=== PATIENT | female | born 1970 | race Caucasian/White ===

== ENCOUNTER 2023-01-31 07:08 | Outpatient (OUT) | payer OTHER, SELFPAY ==
[2023-01-31 07:32] LABS: Basophils Percent Auto 0.7 % (0.2-2.0); Eosinophils Absolute Auto 0.2 10^3/uL (0.0-0.7); Eosinophils Percent Auto 3.3 % (0.9-7.0); Hematocrit 35.2 % (36.0-48.0); Hemoglobin 11.4 g/dL (12.0-16.0); Immature Granulocytes Abs Auto 0.01 10^3/uL (0.00-0.03); Immature Granulocytes Pct Auto 0.2 % (0.0-0.5); Lymphocytes Absolute Auto 1.9 10^3/uL (1.2-3.8); Lymphocytes Percent Auto 35.4 % (20.5-60.0); Mean Corpuscular HGB Conc 32.4 g/dL (29.9-35.2); Mean Corpuscular Hemoglobin 27.7 pg (26.7-34.0); Mean Corpuscular Volume 85.4 fL (81.0-99.0); Mean Platelet Volume 8.6 fL (9.5-13.5); Monocytes Absolute Auto 0.3 10^3/uL (0.3-0.8); Monocytes Percent Auto 6.3 % (1.7-12.0); Neutrophils Absolute Auto 2.9 10^3/uL (1.4-6.5); Neutrophils Percent Auto 54.1 % (43.0-75.0); Platelet Count 279 10^3/uL (150-450); Red Blood Count 4.12 10^6/uL (4.20-5.40); Red Cell Distribution Width 14.5 % (11.0-15.0); White Blood Count 5.4 10^3/uL (4.0-11.0)
[2023-01-31 09:20] LABS: Alanine Aminotransferase 21 U/L (14-59); Albumin Globulin Ratio 1.1; Albumin Level 3.7 g/dL (3.4-5.0); Alkaline Phosphatase 70 U/L (46-116); Aspartate Amino Transferase 18 U/L (15-37); BUN Creatinine Ratio 19.7; Bilirubin Total 0.2 mg/dL (0.2-1.0); Carbon Dioxide 31.2 mmol/L (21.0-32.0); Chloride 105 mmol/L (98-107); Estimated GFR (African America >60 (>=60); Estimated GFR (Non-African Ame >60 (>=60); Globulin 3.5 g/dL; Glucose 98 mg/dL (74-106); Potassium 4.2 mmol/L (3.5-5.1); Sodium 142 mmol/L (136-145); Total Protein 7.2 g/dL (6.4-8.2)
[2023-01-31 09:21] LABS: Chol HDL Ratio 2.6; Cholesterol 184 mg/dL (<=200); HDL Cholesterol 70 mg/dL (40-60); Triglycerides 44 mg/dL (<=150); VLDL CHOLESTEROL 8.8 mg/dL
[2023-02-01 14:09] LABS: Free Kappa Lt Chains,S 10.3 mg/L (3.3-19.4); Free Lambda Lt Chains,S 8.1 mg/L (5.7-26.3); Kappa/Lambda Ratio,S 1.27 (0.26-1.65)
[2023-02-01 15:11] LABS: Albumin 3.8 g/dL (2.9-4.4); Alpha-1-Globulin 0.2 g/dL (0.0-0.4); Alpha-2-Globulin 0.7 g/dL (0.4-1.0); Gamma Globulin 0.7 g/dL (0.4-1.8); Protein, Total 6.4 g/dL (6.0-8.5)
[2023-02-01 16:10] LABS: Immunoglobulin A, Qn, Serum 165 mg/dL (87-352); Immunoglobulin G, Qn, Serum 781 mg/dL (586-1602); Immunoglobulin M, Qn, Serum 58 mg/dL (26-217)
== END 2023-01-31 07:09 | disposition home or self-care (01) ==
LOC: LAB 07:08
PROVIDERS: PCP Internal Medicine; Visit Provider Internal Medicine
DX: Z00.00 Encounter for general adult medical examination without abnormal findings (principal); R53.83 Other fatigue; G62.9 Polyneuropathy, unspecified; D64.9 Anemia, unspecified
CPT/HCPCS: 36415; 80053; 80061; 82607; 82784; 83521; 84155; 84165; 84443; 85025; 86334

== ENCOUNTER 2023-07-07 08:13 | Outpatient (OUT) | payer OTHER, SELFPAY ==
[2023-07-07 12:32] LABS: Thyroid Stimulating Hormone 2.924 uIU/mL (0.358-3.740)
== END 2023-07-07 08:14 | disposition home or self-care (01) ==
LOC: LAB 08:14
PROVIDERS: PCP Internal Medicine; Visit Provider Internal Medicine
DX: E06.3 Autoimmune thyroiditis (principal)
CPT/HCPCS: 36415; 84443

== ENCOUNTER 2023-10-18 14:26 | Outpatient (OUT) | payer OTHER, SELFPAY ==
--- NOTE | 2023-10-18 14:30 | XR_ITS ---
The [address] [address] Patient Name: CLAIRE ROCHA MRN: [id number] date: 1970 Sex: F Assigned Patient Location: [facility] Current Patient Location: Accession/Order Number: [id number] Exam Date: 10/18/2023 14:40 Report Date: 10/19/2023 07:04 At the request of: CHUY POWELL Procedure: XR mandible <4V EXAM: XR mandible <4V HISTORY: jaw pain R68.84, toothache K08.89, recent dental procedure. COMPARISON: None.. FINDINGS: BONES: No fracture, acute abnormality, or significant arthropathy. SOFT TISSUES: No fracture, acute abnormality, or significant arthropathy. OTHER: Negative. XR/XR mandible <4V IMPRESSION: No acute radiographic abnormality Electronically authenticated by: NORY DAVILA Date: 10/19/2023 07:04
--- OUTSIDE RECORDS SUMMARY | 2023-10-18 14:53 | XMS_ITS | CCD ---
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 increased with activity as her legs get tired and weak. She never had BADILLO when she was younger and her BADILLO started ~ three years ago affecting the R more than the left side along with light/sound sensitivity and nausea. She has also experienced episodes of lightheadedness in the past. Her pain level is ~ 3-4/10 in AM sheyla 6-7/10 at night. She also reports a 13 year h/o insomnia and has previously noted anxiety and had remote panic. Patient denies the following pertinent symptoms: difficulty with bowel or bladder control, unintentional weight loss, fevers, chills, or night sweats, and ever having cancer. Past Treatments have included: trials of medications. Enrollment in Physical Therapy which did not help. Patient is not currently performing a home exercise program. She reports for having had a negative blood work and lumbar MRI twice in 2018 and 2021 ALLERGIES: No Known Allergies Current Outpatient Medications Medication Sig tizanidine (ZANAFLEX) 4 mg tablet Take 4 mg by mouth as needed. eletriptan (RELPAX) 40 mg tablet Take 40 mg by mouth once daily. SYNTHROID 100 mcg tablet Take 1 tablet by mouth once daily. Metronidazole (METROGEL) 0.75 % (37.5mg/5 gram) Vaginal Gel Use 1 Applicatorful vaginally daily at bedtime. polyethylene glycol 3350 (MIRALAX) 17 gram/dose powder Take 17 g by mouth once daily. Dissolve dose in 4 - 8 ounces of liquid and take as directed. 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 No shortness of breath, chest pain, vomiting or diarrhea. Denies ease of bleeding or bruising. Examination: BP 128/77 Pulse 90 Ht 5' 3 (1.60m) Wt 163 lb (73.9kg) SpO2 100% BMI 28.88 kg/(m2). Pleasant individual in NAD, difficulty relaxing, reactive affect, coherent cognition, preserved orientation to all spheres and normal higher cortical functions including language, praxis and stereognosis. There was no detectable neglect or executive dysfunctions. Cranial nerve assessment revealed full visual leal, symmetric 3 mm pupillary size, shape and reaction with preserved adaptation to light and accommodation to moving objects. There was no spontaneous or gaze evoked nystagmus. Saccadic, pursuit and vertical/horizontal extraocular movements were intact. Visual acuity was preserved for letter recognition. There was no ptosis or asymmetry of palpebral fissure. Contraction of B/L orbicularis occuli as well as B/L facial, glossal, palatal and sternocleidomastoid muscles were performed symmetrically. Facial sensation and hearing are preserved. She has full four extermity power, coordination, position/LT/point localization testing. Her DTR are 2+ and symmetric. She denies nay myofascial palpation pain, however notes heaviness in her arms during brachial plexus traction test that also results in L hand appearing pale with negative Adson test. Assessment of acral sympathetic tone indicated cold hands and feet with preserved distal pulses She also has normal joint ROM and no signs of inflammatory joint disease. Impression: Possible central sen (more content not included)... Normal [facility] T3, TOTAL (TRIIODOTHYRONINE) on 09-29-2022 T3, TOTAL 108 ng/dL Normal 71-180 [facility] Comment on above: Performed By: #### T 3TOTAL #### [facility] [address] [place] [address] Gigi Campos FREE T4on 09-28-2022 Free T4 [Mass/Vol] 1.06 ng/dL Normal 0.76-1.46 [facility] Comment on above: Performed By: #### F T4 #### [facility] [address] [place], [place] [address] Dr. Gigi Campos TSHon 09-28-2022 TSH 2.591 uIU/mL Normal 0.358-3.740 [facility] Comment on above: Performed By: #### T #### [facility] [address] [place] [address] [address] Gigi Campos Quick Strepon 09-10-2022 S. pyogenes Org specific cx Ql (Throat) Negative [facility] [employer] Other Quick Strep [facility] [employer] Other XR hip BI w [id number] 06-05-20 XR hip BI w PEL1V [facility] [place] [address] XRay Report Signed Patient: Claire Rocha MR#: [id number] : 1970 Acct:[id number] Age/Sex: 51 / F ADM Date: 06/05/22 [place] [facility] [place]: Type: [facility] Attending Dr: Louis Palafox DO Copies to: Louis Palafox DO Ordering Provider: Louis Palafox DO Date of Service: 06/05/22 XR/XR hip BI w PEL1V: Pain in right hip;Pain in left hip PELVIS WITH BILATERAL HIPS -3 images CLINICAL HISTORY: Bilateral hip and groin pain, greater on the right. No injury. COMPARISON: 07/27/2020 left hip AP view of the pelvis frog-lateral views of both hips were obtained. No fracture, dislocation or bony destruction is seen. The hip joint spaces are symmetric. There is no significant arthritic change. The soft tissues are unremarkable. XR/XR hip BI w PEL1V IMPRESSION: NO ACUTE PLAIN FILM FINDINGS. Impression dictated by: Marce Echeverria M.D.06/05/2022 5:47 PM Dictation Location: [place] [address] Transcribed By: [facility] 06/05/221746 Dictated By: Marce Echeverria MD 06/05/221744 Signed By: 06/05/221746 Normal [facility] XR hip BI w PEL1V [facility] [place] [facility] [employer] Other XR hip BI w PEL1V [facility] Main [employer] Other XR hip BI w PEL1V [address] [employer] Other XR hip BI w PEL1V [place] [address] [employer] Other XR hip BI w PEL1V XRay Report [employer] Other XR hip BI w PEL1V Signed [employer] Other XR hip BI w PEL1V Patient: David Rocha ra MR#: [id number] [place] [employer] Other XR hip BI w PEL1V [address]82 [employer] Other XR hip BI w PEL1V : 1970 Acct:[id number] [employer] Other XR hip BI w PEL1V Age/Sex: 51 / F ADM Date: 06/05/22 [employer] Other XR hip BI w PEL1V [place] [facility] [place]: Type : [facility] [employer] Other XR hip BI w PEL1V Attending Dr: Louis Palafox DO [employer] Other XR hip BI w PEL1V Copies to: Louis Palafox DO [employer] Other XR hip BI w PEL1V Ordering Provider: Louis Palafox DO [employer] Other XR hip BI w PEL1V Date of Service: 06/05/22 [facility] Other XR hip BI w PEL1V XR/XR hip BI w PEL1V: Pain in right hip;Pain in left hip [facility] Other XR hip BI w PEL1V PELVIS WITH BILATERA L HIPS -3 images [employer] Other XR hip BI w PEL1V CLINICAL HISTORY: Bilateral hip and groin pain, greater on the right. No injury. [employer] Other XR hip BI w PEL1V COMPARISON: 07/27/2020 left hip [facility] Other XR hip BI w PEL1V AP view of the pelvi s frog-lateral views of both hips were obtained. No fracture, dislocation or [employer] Other XR hip BI w PEL1V bony destruction is seen. The hip joint spaces are symmetric. There is no significant arthritic [employer] Other XR hip BI w PEL1V change. The soft tissues are unremarkable. [employer] Other XR hip BI w PEL1V XR/XR hip BI w PEL1V [employer] Other XR hip BI w PEL1V IMPRESSION: [employer] Other XR hip BI w PEL1V NO ACUTE PLAIN FILM FINDINGS. [employer] Other XR hip BI w PEL1V Impression dictated by: Marce Echeverria M.D.06/05/2022 5:47 PM [employer] Other XR hip BI w PEL1V Dictation Location: [place] [address] [employer] Other XR hip BI w PEL1V Transcribed By: 06/05/22 1747 [facility] Other XR hip BI w PEL1V Dictated By: Marce Echeverria MD 06/05/22 1745 [facility] Other XR hip BI w PEL1V Signed By: [employer] Other XR hip BI w PEL1V 06/05/22 1747 [employer] Other TSHon 04-29-2022 TSH 0.320 uIU/mL Critically low 0.358-3.740 [facility] Comment on above: Performed By: #### T SH #### [facility] [address] [place] [address] [address] Gigi Campos SCREENING MAMMOGRAM W/MIYA, BILATERAL*on 01-23-2022 SCREENING MAMMOGRAM W/MIYA, BILATERAL* EXAMINATION: Screening Mammogram CLINICAL HISTORY: Family history of breast cancer. COMPARISON: Dating back to 12/29/2016 TECHNIQUE: 2D and 3D Tomosynthesis of the right and left breasts was performed. FINDINGS: There are scattered fibroglandular densities within each breast. There are no suspicious masses, areas of suspicious microcalcifications or areas of architectural distortion identified. No evidence of skin thickening. IMPRESSION: BIRADS 1 : NEGATIVE, NORMAL INTERVAL FOLLOW UP. MAMMOGRAPHY IS VERY IMPORTANT TO YOUR HEALTH. THE CURRENT [place] [employer]GE OF RADIOLOG[employer] AND NATIONAL COMPREHENSIVE CANCER NETWORK GUIDELINES RECOMMEND ANNUAL MAMMOGRAPHY BEGINNING AT AGE 40. THIS FACILITY UTILIZES A REMINDER SYSTEM TO ENSURE ALL PATIENTS RECEIVE A REMINDER NOTIFICATION AT THE APPROPRIATE TIME BASED ON THE RECOMMENDATIONS OF THIS EXAM. BOARD CERTIFIED RADIOLOGIST. ACCREDITED BY THE [facility] AND FDA. Report reported and signed by Flakita Gan on 01/23/2022 1309 Normal [facility] [employer] XR KUB 1 VIEWon 01-05-2022 XR KUB 1 VIEW EXAMINATION: XR KUB 1 VIEW HISTORY: Abdominal pain COMPARISON: No relevant comparison available. FINDINGS: KIDNEY/URETER - RIGHT: No visible renal or ureteral calcifications. KIDNEY/URETER - LEFT: No visible renal or ureteral calcifications. PELVIS: No visible ureteral calcifications. Any visible calcifications favor phleboliths. BOWEL: No abnormal dilation or deviation. BONES: No acute abnormality. OTHER: Negative. No abnormal gaseous collections. IMPRESSION: No acute disease. Electronically authenticated by: NORY DAVILA Date: 2022-01-05 16:27 Normal [facility] CBC AUTO DIFFon 11-22-2021 BASO # 0.1 103/ul Normal 0.0-0.1 [facility] Comment on above: Performed By: #### C BC #### [facility] [address] [place] [address] [address] Gigi Campos Basophils/100 WBC (Bld) 1.0 % Normal 0.2-2.0 [facility] Comment on above: Performed By: #### C BC #### [facility] [address] [place] [address] [address] Gigi Campos EO # 0.2 103/ul Normal 0.0-0.7 [facility] Comment on above: Performed By: #### C BC #### [facility] [address] [place] [address] Dr. Gigi Campos Eosinophils/100 WBC (Bld) 3.8 % Normal 0.9-7.0 [facility] Comment on above: Performed By: #### C BC #### [facility] [address] [place] [address] Dr. Gigi Campos Erythrocyte distribution width (RBC) [Ratio] 12.1 % Normal 11.0-15.0 [facility] Comment on above: Performed By: #### C BC #### [facility] [address] [place] [address] Dr. Gigi Campos Hematocrit (Bld) [Volume fraction] 43.0 % Normal 36.0-48.0 [facility] Comment on above: Performed By: #### C BC #### [facility] [address] [place] [address] Dr. Gigi Campos Hemoglobin (Bld) [Mass/Vol] 14.2 g/dL Normal 12.0-16.0 [facility] Comment on above: Performed By: #### C BC #### [facility] [address] [place] [address] Dr. Gigi Campos IG # 0.00 10e3/ul Normal 0.00-0.03 [facility] Comment on above: Performed By: #### C BC #### [facility] [address] [place] [address] Dr. Gigi Campos IG % 0.0 % Normal 0.0-0.5 [facility] Comment on above: Performed By: #### C BC #### [facility] [address] [place] [address] Dr. Gigi Campos LYMPH # 1.9 103/ul Normal 1.2-3.8 [facility] Comment on above: Performed By: #### C BC #### [facility] [address] [place] [address] Dr. Gigi Campos Lymphocytes/100 WBC (Bld) 35.7 % Normal 20.5-60.0 [facility] Comment on above: Performed By: #### C BC #### [facility] [address] [place] [address] Dr. Gigi Campos MANUAL DIFF REQ NO Normal [facility] Comment on above: Performed By: #### C BC #### [facility] [address] [place] [address] Dr. Gigi Campos MCH (RBC) [Entitic mass] 30.4 pg Normal 26.7-34.0 [facility] Comment on above: Performed By: #### C BC #### [facility] [address] [place] [address] Dr. Gigi Campos MCHC (RBC) [Mass/Vol] 33.0 g/dL Normal 29.9-35.2 [facility] Comment on above: Performed By: #### C BC #### [facility] [address] [place] [address] Dr. Gigi Campos MCV (RBC) [Entitic vol] 92.1 fL Normal 81.0-99.0 [facility] Comment on above: Performed By: #### C BC #### [facility] [address] [place] [address] Dr. Gigi Campos MONO # 0.4 103/ul Normal 0.3-0.8 [facility] Comment on above: Performed By: #### C BC #### [facility] [address] [place] [address] Dr. Gigi Campos Monocytes/100 WBC (Bld) 6.8 % Normal 1.7-12.0 [facility] Comment on above: Performed By: #### C BC #### [facility] [address] [place] [address] Dr. Gigi Campos NEUT # 2.8 103/ul Normal 1.4-6.5 [facility] Comment on above: Performed By: #### C BC #### [facility] [address] [place] [address] Dr. Gigi Campos Neutrophils/100 WBC (Bld) 52.7 % Normal 43.0-75.0 [facility] Comment on above: Performed By: #### C BC #### [facility] [address] [place] [address] [address] Gigi Campos Platelet mean volume (Bld) [Entitic vol] 8.9 fL Critically low 9.5-13.5 [facility] Comment on above: Performed By: #### C BC #### [facility] [address] [place] [address] [address] Gigi Campos PLT 281 103/ul Normal 150-450 [facility] Comment on above: Performed By: #### C BC #### [facility] [address] [place] [address] Dr. Gigi Campos RBC 4.67 106/ul Normal 4.20-5.40 [facility] Comment on above: Performed By: #### C BC #### [facility] [address] [place] [address] Dr. Gigi Campos WBC 5.3 103/ul Normal 4.0-11.0 [facility] Comment on above: Performed By: #### C BC #### [facility] [address] [place] [address] Dr. Gigi Campos LIPID PROFILEon 11-22-2021 CHOL-HDL RATIO NORM SEE BELOW Normal [facility] Comment on above: Result Comment: 3.3 - 4.4 LOW RISK 4.4 - 7.1 AVERAGE RISK 7.1 - 11.0 MODERATE RISK >11.0 HIGH RISK Performed By: #### T SH, CMP, LIPID #### [facility] [address] [place] [address] Dr. Gigi Campos Cholesterol [Mass/Vol] 222 mg/dL Critically high <=200 [facility] Comment on above: Performed By: #### T SH, CMP, LIPID #### [facility] [address] [place] [address] Dr. Gigi Campos Cholesterol in HDL [Mass/Vol] 60 mg/dL Normal 40-60 [facility] Comment on above: Performed By: #### T SH, CMP, LIPID #### [facility] [address] [place] [address] [address] Gigi Campos Cholesterol in LDL [Mass/Vol] 148.2 mg/dL Normal [facility] Comment on above: Performed By: #### T SH, CMP, LIPID #### [facility] [address] [place] [address] [address] Gigi Campos Cholesterol.total/Ch olesterol in HDL [Mass ratio] 3.7 {ratio} Normal [facility] Comment on above: Performed By: #### T SH, CMP, LIPID #### [facility] [address] [place] [address] [address] Gigi Campos HDL NORMAL > or = 60 mg/dl - LO W CARDIOVASCULAR RISK <40 mg/dl - HIGH CARDIOVASCULAR RISK Normal [facility] Comment on above: Performed By: #### T SH, CMP, LIPID #### [facility] [address] [place] [address] Dr. Gigi Campos LDL CALC NORMAL SEE BELOW Normal [facility] Comment on above: Result Comment: <100 mg/dl OPTIMAL 100 - 129 mg/dl NEAR OR ABOVE OPTIMAL 130 - 159 mg/dl BORDERLINE HIGH 160 - 189 mg/dl HIGH >190 mg/dl VERY HIGH Performed By: #### T SH CMP, LIPID #### [facility] [address] [place] [address] [address] Gigi Campos Triglyceride [Mass/Vol] 69 mg/dL Normal <=150 [facility] Comment on above: Performed By: #### T YANELY CMP, LIPID #### [facility] [address] [place] [address] [address] Gigi Campos VLDL CALC 13.8 mg/dL Normal [facility] Comment on above: Performed By: #### T SH, CMP, LIPID #### [facility] [address] [place] [address] [address] Gigi Campos PROF 14(COMP METB)on 022 Albumin [Mass/Vol] 3.8 g/dL Normal 3.4-5.0 [facility] Comment on above: Performed By: #### T SH, CMP, LIPID #### [facility] [address] [place] [address] [address] Gigi Campos Albumin/Globulin [Mass ratio] 1.2 {ratio} Normal [facility] Comment on above: Performed By: #### T SH, CMP, LIPID #### [facility] [address] [place] [address] [address] Gigi Campos ALP [Catalytic activity/Vol] 61 U/L Normal 46-116 [facility] Comment on above: Performed By: #### T SH, CMP, LIPID #### [facility] [address] [place] [address] [address] Gigi Campos ALT [Catalytic activity/Vol] 21 U/L Normal 14-59 [facility] Comment on above: Performed By: #### T YANELY, CMP, LIPID #### [facility] [address] [place] [address] Dr. Gigi Campos Anion gap [Moles/Vol] 10.6 mmol/L Normal [facility] Comment on above: Performed By: #### T YANELY, CMP, LIPID #### [facility] [address] [place] [address] Dr. Gigi Campos AST [Catalytic activity/Vol] 19 U/L Normal 15-37 [facility] Comment on above: Performed By: #### T YANELY, CMP, LIPID #### [facility] [address] [place] [address] Dr. Gigi Campos Bilirubin [Mass/Vol] 0.4 mg/dL Normal 0.2-1.0 [facility] Comment on above: Performed By: #### T SH, CMP, LIPID #### [facility] [address] [place] [address] Dr. Gigi Campos Calcium [Mass/Vol] 9.1 mg/dL Normal 8.5-10.1 [facility] Comment on above: Performed By: #### T SH, CMP, LIPID #### [facility] [address] [place] [address] Dr. Gigi Campos Chloride [Moles/Vol] 106 mmol/L Normal 98-107 [facility] Comment on above: Performed By: #### T SH, CMP, LIPID #### [facility] [address] [place] [address] [address] Gigi Campos CO2 [Moles/Vol] 29.9 mmol/L Normal 21.0-32.0 [facility] [place] Comment on above: Performed By: #### T SH, CMP, LIPID #### [facility] [address] [place] [address] [address] Gigi Campos Creatinine [Mass/Vol] 0.79 mg/dL Normal 0.55-1.02 [facility] Comment on above: Performed By: #### T SH, CMP, LIPID #### [facility] [address] [place] [address] [address] Gigi Campos EGFR-AF GUATEMALAN >60 Normal >=60 [facility] [place] Comment on above: Performed By: #### T SH, CMP, LIPID #### [facility] [address] [place] [address] [address] Gigi Campos EGFR-NON AF GUATEMALAN >60 Normal >=60 [facility] Comment on above: Performed By: #### T SH, CMP, LIPID #### [facility] [address] [place] [address] [address] Gigi Campos Globulin (S) [Mass/Vol] 3.3 g/dL Normal [facility] Comment on above: Performed By: #### T SH, CMP, LIPID #### [facility] [address] [place] [address] [address] Gigi Campos Glucose [Mass/Vol] 92 mg/dL Normal 74-106 [facility] Comment on above: Performed By: #### T SH, CMP, LIPID #### [facility] [address] [place] [address] [address] Gigi Campos Potassium [Moles/Vol] 4.5 mmol/L Normal 3.5-5.1 [facility] Comment on above: Performed By: #### T SH, CMP, LIPID #### [facility] [address] [place] [address] [address] Gigi Campos Protein [Mass/Vol] 7.1 g/dL Normal 6.4-8.2 [facility] Comment on above: Performed By: #### T SH, CMP, LIPID #### [facility] [address] [place] [address] [address] Gigi Campos Sodium [Moles/Vol] 142 mmol/L Normal 136-145 [facility] Comment on above: Performed By: #### T SH, CMP, LIPID #### [facility] [address] [place] [address] [address] Gigi Campos Urea nitrogen [Mass/Vol] 25.0 mg/dL Critically high 7.0-18.0 [facility] Comment on above: Performed By: #### T SH, CMP, LIPID #### [facility] [address] [place] [address] Dr. Gigi Campos Urea nitrogen/Creatinine [Mass ratio] 31.6 mg/mg Normal [facility] Comment on above: Performed By: #### T SH, CMP, LIPID #### [facility] [address] [place] [address] Dr. Gigi Campos TSHon 11-22-2021 TSH 6.390 uIU/mL Critically high 0.358-3.740 [facility] Comment on above: Performed By: #### T SH, CMP, LIPID #### [facility] [address] [place] [address] Dr. Gigi Campos TSH RANGE SEE BELOW Normal [facility] Comment on above: Result Comment: <0.3 4 UIU/ml HYPERTHYROID 0.34-5.60 UIU/ml EUTHYROID >5.60 UIU/ml HYPOTHYROID Performed By: #### T SH, CMP, LIPID #### [facility] [address] [place] [address] Dr. Gigi Campos VITAMIN D 25 OHon 11-22-2021 VIT D 25-OH 37.0 ng/mL Normal [facility] Comment on above: Performed By: #### V ITAD #### [facility] [address] [place] [address] Dr. Gigi Campos VIT D RANGES SEE BELOW Normal [facility] Comment on above: Result Comment: <20 ng/mL Vit D deficient 20 - <30 ng/mL Vit D insufficient 30 - 100 ng/mL Vit D sufficient >100 ng/mL Potential Toxicity Performed By: #### V ITAD #### [facility] [address] [place] [address] Dr. Gigi Campos Vital Signs Date Time Vital Sign Value Performing Clinician Facility 07-06-2023 10:30-0500 Body height 161.29 cm Wagner Ball Other [facility] Other 07-06-2023 10:30-0500 Body mass index (BMI) [Ratio] 30.34 kg/m2 Wagner Ball Other [facility] Other 07-06-2023 10:30-0500 Body weight 78.93 kg Wagner Ball Other [facility] Other 07-06-2023 10:30-0500 Diastolic blood pressure 78 mm[Hg] Wagner Ball Other [facility] Other 07-06-2023 10:30-0500 Respiratory rate 12 /min Wagner Ball Other [facility] Other 07-06-2023 10:30-0500 Systolic blood pressure 121 mm[Hg] Wagner Ball Other [facility] Other 04-23-2023 16:00-0500 Body height 161.29 cm Wagner Ball Other [facility] Other 04-23-2023 16:00-0500 Body mass index (BMI) [Ratio] 29.12 kg/m2 Wagner Ball Other [facility] Other 04-23-2023 16:00-0500 Body weight 75.75 kg Wagner Ball Other [facility] Other 01-26-2023 11:00-0400 Body height 161.29 cm Wagner Ball Other [facility] Other 01-26-2023 11:00-0400 Body mass index (BMI) [Ratio] 29.22 kg/m2 Wagner Ball Other [place] [employer] Other 01-26-2023 11:00-0400 Body weight 76.02 kg Wagner Ball Other [place] [employer] Other 01-26-2023 11:00-0400 Diastolic blood pressure 65 mm[Hg] Wagner Ball Other [place] [employer] Other 01-26-2023 11:00-0400 Respiratory rate 12 /min Wagner Ball Other [place] [employer] Other 01-26-2023 11:00-0400 Systolic blood pressure 101 mm[Hg] Wagner Ball Other [place] [employer] Other 01-19-2023 08:53-0400 Body height 160 cm Santiago Evans MD, PhD Work Phone: [facility] 01-19-2023 08:53-0400 Body weight 73.94 kg Santiago Evans MD, PhD Work Phone: [facility] 01-19-2023 08:53-0400 Diastolic blood pressure 77 mm[Hg] Santiago Evans MD, PhD Work Phone: [facility] 01-19-2023 08:53-0400 Heart rate 90 /min Santiago Evans MD, PhD Work Phone: [facility] 01-19-2023 08:53-0400 SaO2% (BldA) [Mass fraction] 100 % Santiago Evans MD, PhD Work Phone: [facility] 01-19-2023 08:53-0400 Systolic blood pressure 128 mm[Hg] Santiago Evans MD, PhD Work Phone: [facility] 12-15-2022 12:00-0400 Body height 161.29 cm Wagner Ball Other [facility] Other 12-15-2022 12:00-0400 Body mass index (BMI) [Ratio] 27.9 kg/m2 Wagner Ball Other [facility] Other 12-15-2022 12:00-0400 Body weight 72.58 kg Wagner Ball Other [facility] Other 12-15-2022 12:00-0400 Diastolic blood pressure 85 mm[Hg] Wagner Ball Other [facility] Other 12-15-2022 12:00-0400 Systolic blood pressure 115 mm[Hg] Wagner Ball Other [facility] Other 10-16-2022 16:15-0400 Body height 161.29 cm Wagner Ball Other [facility] Other 10-16-2022 16:15-0400 Body mass index (BMI) [Ratio] 29.69 kg/m2 Wagner Ball Other [facility] Other 10-16-2022 16:15-0400 Body weight 77.25 kg Wagner Ball Other [facility] Other 10-16-2022 16:15-0400 Diastolic blood pressure 82 mm[Hg] Wagner Ball Other [facility] Other 10-16-2022 16:15-0400 SaO2% (BldA) [Mass fraction] 97 % Wagner Ball Other [facility] Other 10-16-2022 16:15-0400 Systolic blood pressure 115 mm[Hg] Wagner Ball Other [facility] Other 09-10-2022 10:15-0400 Body height 161.29 cm Yara Mahajan Other [facility] Other 09-10-2022 10:15-0400 Body mass index (BMI) [Ratio] 29.12 kg/m2 Yara Mahajan Other [facility] Other 09-10-2022 10:15-0400 Body temperature 98.3 [degF] Yara Mahajan Other [facility] Other 09-10-2022 10:15-0400 Body weight 75.75 kg Yara Mahajan Other [facility] Other 09-10-2022 10:15-0400 Diastolic blood pressure 66 mm[Hg] Yara Mahajan Other [facility] Other 09-10-2022 10:15-0400 Respiratory rate 16 /min Yara Mahajan Other [facility] Other 09-10-2022 10:15-0400 SaO2% (BldA) [Mass fraction] 97 % Yara Mahajan Other [facility] Other 09-10-2022 10:15-0400 Systolic blood pressure 111 mm[Hg] Yara Mahajan Other [facility] Other 08-21-2022 14:30-0500 Body height 161.29 cm Wagner Ball Other [facility] Other 08-21-2022 14:30-0500 Body mass index (BMI) [Ratio] 29.29 kg/m2 Wagner Ball Other [facility] Other 08-21-2022 14:30-0500 Body weight 76.2 kg Wagner Ball Other [facility] Other 08-21-2022 14:30-0500 Diastolic blood pressure 76 mm[Hg] Wagner Ball Other [facility] Other 08-21-2022 14:30-0500 Respiratory rate 12 /min Wagner Ball Other [facility] Other 08-21-2022 14:30-0500 Systolic blood pressure 118 mm[Hg] Wagner Ball Other [facility] Other 06-05-2022 15:00-0500 Body height 161.29 cm Louis Palafox Other [facility] Other 06-05-2022 15:00-0500 Body mass index (BMI) [Ratio] 28.42 kg/m2 Louis Palafox Other [facility] Other 06-05-2022 15:00-0500 Body weight 73.94 kg Louis Palafox Other [facility] Other Encounters Encounter Date Encounter Type Care Provider Facility Start: 07-30-2023 End: 07-30-2023 ambulatory Wagner Jade Other [facility] Other Start: 07-30-2023 Telephone encounter Wagner Kyle [facility] Start: 07-09-2023 End: 07-09-2023 ambulatory Wagner Ball Other [facility] Other Start: 07-09-2023 Telephone encounter Wagner Ball [facility] Start: 07-06-2023 End: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 M25.551) May, Pain in left hip (ICD-10 - M25.552) May, Other See orders for this visit as documented in the electronic medical record. [facility] Other 08-08-2022 NoteHISTORY: Bone density screening. COMPARISON: 12/08/2020 PROCEDURE: Imaging of the lumbar spine and bilateral hips was obtained for bone density evaluation. FINDINGS: REGION BMD (g/cm??) YOUNG ADULT T-SCORE AGE-MATCHED Z-SCORE LEFT NECK 0.642 -1.9 -1.0 RIGHT NECK 0.597 -2.3 -1.4 LUMBAR (L1-L4) 0.810 -2.2 -1.3 The mean BMD and corresponding T-score listed above indicates: Osteopenia and places the patient at a mild to moderate increased risk for fracture. There may be a future risk of developing osteoporosis. Recommend follow-up exam in 1 year, sooner as clinically necessary. Compared to prior exam of the lumbar L1 L4 BMD has increased by 0.3% compared to prior exam the total hip BMD has increased by 1.3%. Comment: The T-score is the primary focus of the interpretation of a patient???s bone mineral density measurement. The T-score is the number of standard deviations and individual is above or below the mean value for a young female having normal bone mass. The WHO defines osteoporosis based on the T-score value: +1.0 to -0.9 : Normal bone mass -1.0 to -2.5 : Osteopenia and thus may be at future risk of fracture. -2.6 to -5.0 : Osteoporosis and at significantly increased risk of fracture. IMPRESSION: OSTEOPENIA : ONE YEAR FOLLOW-UP RECOMMENDED Report reported and signed by Flakita Gan on 01/23/2022 0921[facility] campusraissa [place] Medical SpecialistEvaluation noteNo assessment information availableOur Lady Of Mercy [facility] - [facility] Work Phone: Evaluation noteNo InformationNort [employer] Other Evaluation note* Diagnosis Pain in both lower extremities- Primary Cold hands and feet without peripheral vascular disease Other symptoms involving skin and integumentary tissues Orthostatic hypotension Small fiber neuropathy Unspecified hereditary and idiopathic peripheral neuropathy Neuropathic pain Neuralgia, neuritis, and radiculitis, unspecified documented in this encounter [facility] N[facility] - Reported* Type Description Date Medical History HYPOTHYROIDISM Medical History HASIMOTOS Medical History OSTEOPENIA Medical History MENOPAUSE Surgical History Surgical History SCOPING ENDREMETRIOSIS Surgical History SURGERY ON LEFT HAND Hospitalization History CHILD [facility] [employer] Other Hospital course Narrative No data available for this section [facility] No data available for this section [facility] No data available for this section [facility] (narrative)* Reason Referral for dysesth esias of the lower extremities and chronic headache Diagnosis 1 Chronic daily headac he (R51.9) Diagnosis 2 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 Orthopedics has excluded spine and hip disorders as an etiology. Orthopedics referred her to Neurology at [facility] but she does not wish to return. I an referring her for lower extremity dysesthesias and chronic tension headaches. Clinical Notes Include labs from [facility] Other Summary Purpose Family History Relationship Condition Age at Onset Recorded Date/T papi father Myocardial infarction Unknown Advance Directives Advance Directive Response Recorded Date/ Time Advance Directives No April 1:21pm Reason for Referral Reason bilateral lower leg weakness, frequent headach Diagnosis 1 Leg weakness, bilate ral (R29.898) Referral Organization [facility] Referring Provider First Name Louis Referring Provider Last Name Vivienne Referring Provider Specialty Orthopedic Surgery Referred Organization [facility] Referred Address [address] [place],[phone] Referred Provider Specialty Neurology Referral Priority Routine Additional Source Comments INFORMATION SOURCE (unrecogn ized section and content) DATE CREATED AUTHOR 09/04/2018 [facility] DATE CREATED AUTHOR AUTHOR'S ORGANIZ ATION 01/23/2022 [facility] Special[facility] DATE CREATED AUTHOR AUTHOR'S ORGANIZ ATION 06/09/2022 [facility] DATE CREATED AUTHOR AUTHOR'S ORGANIZ ATION 10/05/2022 [facility] DATE CREATED AUTHOR AUTHOR'S ORGANIZ ATION 02/13/2023 [facility] DATE CREATED AUTHOR AUTHOR'S ORGANIZ ATION 03/11/2023 [facility] Care Teams (unrecognized sec tion and content) Team Status: Inactive Member Role Status Dates Wagner Jade , Primary Care Provider Active Louis Palafox DO Attending Provider Active Team Status: Active Member Role Status Dates Wagner Jade , Primary Care Provider Active Pattern Clerk Relationship Specialty Start Date End Date Louis Palafox DO [address] [place] [address] Referring Orthopedics 12/28/22 Goals (unrecognized section and content) Goals may be documented in a n alternate sectionNo InformationNo InformationNo InformationNo InformationNo InformationNo InformationNo InformationNo InformationNo InformationNo InformationNo InformationNo InformationNo InformationNo InformationNo InformationNo InformationNo InformationNo InformationNo InformationNo Information No data available for this sectionNo InformationNo InformationNo InformationNo InformationNo InformationNo InformationNo Information REASON FOR VISIT (unrecogniz ed section and content) Reason Comments New Patient Consult Source Comments (unrecognize d section and content) In the event this informatio n is protected by the Federal Confidentiality of Alcohol and Drug Abuse Patient Records regulations: The Federal rules restrict any use of the information to criminally investigate or prosecute any alcohol or drug abuse patient.[facility] FOR RECORDS PERTAINING TO PATIENTS WHO ARE OR HAVE BEEN ENROLLED IN A CHEMICAL DEPENDENCY/SUBSTANCEABUSE PROGRAM, SOME INFORMATION MAY BE OMITTED. This clinical summary was aggregated from multiple sources. Caution should be exercised in using it in the provision of clinical care. This summary normalizes information from multiple sources, and as a consequence, information in this document may materially change the coding, format and clinical context of patient data. In addition, data may be omitted in some cases. CLINICAL DECISIONS SHOULD BE BASED ON THE PRIMARY CLINICAL RECORDS. [facility]. provides no warranty or guarantee of the accuracy or completeness of information in this document.
== END 2023-10-18 14:27 | disposition home or self-care (01) ==
LOC: RAD 14:27
PROVIDERS: PCP Internal Medicine; Visit Provider Nurse Practitioner Family
DX: R68.84 Jaw pain (principal); K08.89 Other specified disorders of teeth and supporting structures; Z98.890 Other specified postprocedural states
CPT/HCPCS: 70100

== ENCOUNTER 2024-01-29 16:31 | Outpatient (OUT) | payer OTHER, SELFPAY ==
--- OUTSIDE RECORDS SUMMARY | 2024-01-29 16:54 | XMS_ITS | CCD ---
Author Organization [facility] Care Team Providers Care Taproom Attendant Name Role Phone REID FAY Attending Unavailable [...] Admitting Unavailable KYLE, DR RUSSELL Attending Unavailable Loius Palafox DO Unavailable [phone] SANTIAGO EVANS Attending Unavailable WAGNER JADE Primary Care Physician Jazmine Rey Attending Unavailable Jazmine Rey Admitting Unavailable Medications Current Medications Medication Drug Class(es) Dates Sig (Normalized) Sig (Original) 0.5 ML semaglutide 0.5 MG/ML Auto-Injector [Wegovy] (4 sources) Start: 08-22-2022 inject 0.25 mg by subcutaneous injection every week Wegovy 0.25 MG/0.5ML 0.25mg Subcutaneous weekly for 90 days Aug, Active Start: 08-22-2022 inject 0.25 mg by fish bcutaneous injection every week Wegovy 0.25 MG/0.5ML 0.25mg Subcutaneous weekly for 30 days Aug, Active 0.5 ML tirzepatide 5 MG/ML Auto-Injector [Mounjaro] (5 sources) Start: 08-21-2022 inject 2.5 mg by subcutaneous injection every week Mounjaro 2.5 MG/0.5ML 2.5mg Subcutaneous weekly for 28 days Aug, Active acyclovir 0.05 mg/mg topical ointment (10 sources) Herpesvirus Nucleoside Analog DNA Polymerase Inhibitor, Herpes Simplex Virus Nucleoside Analog DNA Polymerase Inhibitor, Herpes Zoster Virus Nucleoside Analog DNA Polymerase Inhibitor Start: 11-09-2023 Acyclovir Active 1 APPLIC TOPICAL Six times daily November 09, 2023 12:00am Acyclovir 5 % 1 application Externally Five times a day for 7 days Active amitriptyline hydrochloride 10 mg oral tablet (7 sources) Tricyclic Antidepressant Start: 09-02-2023 End: 09-02-2023 take 10 mg by mouth once daily at bedtime Amitriptyline Active 10 MG PO Daily at bedtime 90 90 September 02, 2023 3:16pm Start: 07-06-2023 take 1 tablet by stefany th once at bedtime Amitriptyline HCl 10 MG 1 tablet at bedtime Orally q HS for 30 days Jun, Active D3 with Calcium (1 source) Start: 11-04-2019 D3 with Calciu m Refill(s) 0 Start Date: 11/04/19 Status: Ordered eletriptan 40 mg oral tablet (20 sources) Serotonin-1b and Serotonin-1d Receptor Agonist Start: 11-09-2023 take 40 mg by mouth once Eletriptan Active 40 MG PO Once November 09, 2023 12:00am Start: 11-23-2022 take 1 tablet by stefany th once daily eletriptan (RELPAX) 40 mg tablet Take 40 mg by mouth once daily. 0 11/23/2022 Active Start: 08-11-2022 take 1 tablet by stefany th every two hours as needed for headache Eletriptan Hydrobromide 40 MG 1 tablet Orally prn headache, may repeat once after 2 hours if needed for 90 days PRN Jul, Active Comment on above: Take 40 mg by mouth once daily. fluticasone propionate 0.05 mg/actuat metered dose nasal spray (1 source) Corticosteroid Start: 4 take 1 spray(s) nasal route twice daily Fluticasone Propionate (Flonase Allergy Relief) 50 mcg/actuation spray,suspension Active 1 SPRAY INTRANASAL Twice daily 16 October 18, 2023 12:00am administer into each nostril ibuprofen 800 mg oral tablet (2 sources) Nonsteroidal Anti-inflammatory Drug Start: 4 take 800 mg by mouth every eight hours Ibuprofen Active 800 MG PO Every 8 hours 16 04October 18, 2023 12:00am Start: 09-25-2014 take 1 tablet by stefany th four times daily as needed for pain ibuprofen 800 mg Tab 800 mg = 1 tab(s), Oral, QID, PRN as needed for pain, Refills(s) 0 Start Date: 09/25/14 Status: Ordered levothyroxine sodium 0.1 mg oral tablet (20 sources) l-Thyroxine Start: 11-09-2023 Levothyroxine Active 100 MCG PO Daily November 09, 2023 12:00am 1 1/2 tablet on Sundays Start: 09-03-2020 End: 11-09-2023 take 1 tablet by mouth once daily Levothyroxine (Synthroid) 88 mcg tablet Discontinued 88 MCG PO Daily September 03, 2020 12:00am November 09, 2023 2:22pm Start: 11-04-2019 take 1 tablet by stefany th once daily Synthroid 88 mcg (0.088 mg) Tab 88 microgram = 1 tab(s), Oral, Daily, # 90 tab(s), Refills(s) 0 Start Date: 11/04/19 Status: Ordered Start: 10-04-2015 take 1 tablet by stefany th once daily, then take 1 tablet by mouth once daily Levothyroxine Sodium 100 MCG 1 tablet daily except 1 1/2 tablet on Sundays Orally Once a day Sep, Active Start: 10-04-2015 take 1 tablet by stefany th once daily, then take 1 tablet by mouth once daily Levothyroxine Sodium 100 MCG 1 tablet daily except 1 1/2 tablet on Sundays Orally Once a day Sep, Active Comment on above: Take 1 tablet by stefany th once daily. mounjaro 2.5 mg/0.5ml solution pen-injector (5 sources) Start: 07-06-2023 Mounjaro 2.5 MG/0.5ML as directed Subcutaneous Jun, Active Multiple Vitamins Tab (1 source) Start: 09-25-2014 take 1 tablet by mouth once daily Multiple Vitamins Tab 1 tab(s), Oral, Daily, Refill(s) 0, Prophylaxis Start Date: 09/25/14 Status: Ordered Multivitamin preparation (2 sources) Start: 09-03-2020 take 1 tablet by mouth once daily Multivitamin Active 1 TAB PO Daily September 03, 2020 12:00am Start: 09-03-2020 take 1 tablet by stefany th once daily Multivitamin Active 1 TAB PO Daily September 02, 2020 11:00pm phentermine hydrochloride 37.5 mg oral tablet (19 sources) Sympathomimetic Amine Anorectic Start: 12-15-2022 take 1 tablet by mouth once daily before breakfast Adipex-P 37.5 MG 1 tablet before breakfast Orally Once a day for 30 days Jun, Active Start: 10-16-2022 take 1 tablet by stefany th once daily before breakfast Adipex-P 37.5 MG 1 tablet before breakfast Orally Once a day for 30 days October, Active Tirzepatide (1 source) Start: 11-09-2023 Tirzepatide (Manolo ortega) 2.5 mg/0.5 mL pen injector Active 2.5 MG SUBCUT As Directed November 09, 2023 12:00am tiZANidine 4 mg oral tablet (20 sources) Central alpha-2 Adrenergic Agonist Start: 09-03-2023 Tizanidine Active 0 .ROUTE .COMPLEX 90 September 03, 2023 2:07pm TAKE ONE-HALF (1/2) TO ONE TABLET AT BEDTIME NEEDED FOR PAIN Start: 09-03-2023 End: 09-03-2023 take 0.5-1 tablets by mouth once daily at bedtime as needed for pain Tizanidine Discontinued 4 MG PO Daily at bedtime September 03, 2023 12:00am September 03, 2023 2:08pm take 1/2 to 1 tablet at HS as needed for pain Start: 06-08-2023 tiZANidine (ZA NAFLEX) 4 mg tablet Take 4 mg by mouth as needed. 0 11/23/2022 Active Comment on above: Take 4 mg by mouth a s needed. valACYclovir 1000 mg oral tablet (9 sources) Herpesvirus Nucleoside Analog DNA Polymerase Inhibitor, Herpes Simplex Virus Nucleoside Analog DNA Polymerase Inhibitor, Herpes Zoster Virus Nucleoside Analog DNA Polymerase Inhibitor Start: take 2 tablets by mouth twice daily valACYclovir HCl 1 GM 2 tablets Orally twice daily for 1 days Feb, Active Start: 02-21-2023 take 2 tablets by mo [facility] twice daily valACYclovir HCl 1 GM 2 [...] Drug Class(es) Dates Sig (Normalized) Sig (Original) amoxicillin 875 mg / clavulanate 125 mg oral tablet (1 source) Penicillin-class Antibacterial Start: 10-18-2023 End: 11-09-2023 take 1 tablet by mouth twice daily Amoxicillin-Pot Clavulanate Discontinued 1 TAB PO Twice daily 06 04October 18, 2023 12:00am November 09, 2023 2:21pm azithromycin 250 mg oral tablet (20 sources) Macrolide Antimicrobial Start: 09-11-2022 Azithromycin 250 MG as directed Orally daily for 5 days Aug, Not-Taking/PRN B-12 - up to 1000 mcg (19 sources) Start: 04-09-2023 B-12 - up to 1000 mcg Mar, 1000 mcg Start: 01-26-2023 B-12 - up to 1 000 mcg Jan, 1000 mcg busPIRone hydrochloride 7.5 mg oral tablet (9 sources) Start: 09-03-2020 End: 11-09-2023 take 7.5 mg by mouth once daily Buspirone Discontinued 7.5 MG PO Daily September 03, 2020 12:00am November 09, 2023 2:23pm take 1 tablet by [facility] every twelve hours busPIRone HCl 7.5 MG 1 tablet Orally Twi ce a day Active Calcium Carbonate-Vitamin D2 (2 sources) Start: 09-03-2020 End: 11-09-2023 take 1 tablet by mouth once daily Calcium Carbonate-Vitamin D2 Discontinued 1 TAB PO Daily September 03, 2020 12:00am November 09, 2023 2:23pm Start: 09-03-2020 take 1 tablet by stefany once daily Calcium Carbonate-Vitamin D2 Active 1 TAB PO Daily September 02, 2020 11:00pm celecoxib 200 mg oral capsule (20 sources) Nonsteroidal Anti-inflammatory Drug Start: 06-05-2022 take 1 capsule by mouth every twelve hours CeleBREX 200 MG 1 capsule with food Orally twice a day for 30 day(s) May, Not-Taking/PRN Start: 09-03-2020 End: 10-18-2023 take 1 capsule by mouth once daily Celecoxib (Celebrex) 200 mg Capsule Discontinued 200 MG PO Daily September 03, 2020 12:00am October 18, 2023 2:14pm CeleBREX Active codeine phosphate 2 mg/ml / [...] Multi-Sy mptom Not-Taking DayQuil Multi-Sy mptom Active metroNIDAZOLE 7.5 mg/ml topical cream (20 sources) Nitroimidazole Antimicrobial metroNIDAZOLE 0.75 % 1 application Externally Twice a [...] for 5 days Not-Taking/PRN polyethylene glycol 3350 09180 mg powder for oral solution (1 source) Osmotic Laxative polyethylene gl ycol 3350 (MIRALAX) 17 gram/dose powder Take 17 g by mouth once daily. Dissolve dose in 4 - 8 ounces of liquid and take as directed. 0 Active Comment on above: Take 17 g by mouth o nce daily. Dissolve dose in 4 - 8 ounces of liquid and take as directed. Problems Active Problems Problem Classification Problem Date [...] intrinsic factor deficiency Episodic Headache; including migraine (20 sources) Chronic migraine without aura, non-refractory; Translations: [Migraine without aura, not intractable, without status migrainosus] Chronic Menopausal disorders (13 sources) Premature menopause; Translations: [Asymptomatic premature menopause] 11-04-2019 Chronic Miscellaneous mental health disorders (12 sources) Primary insomnia; Translations: [Primary insomnia] Chronic Nutritional deficiencies (20 sources) Vitamin D deficiency; Translations: [Vitamin D deficiency, unspecified] Resolved: 1 Chronic Osteoarthritis (20 sources) Osteoarthritis of left [...] hip; Translations: [Pain in left hip] Onset: Episodic Other non-traumatic joint disorders (2 sources) [...] (20 sources) Overweight; Translations: [Overweight] Onset: 2 11-26-2023 Episodic Other nutritional; endocrine; and metabolic disorders (7 sources) Overweight; Translations: [Overweight] Onset: 2 Episodic Other nutritional; endocrine; and metabolic disorders (12 sources) Body mass index 25-29 - overweight; Translations: [Body mass index (BMI) 28.0-28.9, adult] Episodic Other screening for suspected conditions (not mental disorders or infectious disease) (14 sources) Patient encounter status; Translations: [Encounter for [...] [Pain in left finger(s)] Resolved: 04-14-2020 Episodic Spondylosis; intervertebral disc disorders; other back [...] Ql (S) Negative Invalid Interpretation Code Negative [facility] Comment on above: Result Comment: Perf ormed at: [facility] [address] [id number] PhD Maya Brown Performed By: #### 1 [id number] #### [facility] [address] [place] [address] RF Quanton 03-09-2023 Rheumatoid factor Qn [IU]/mL Invalid Interpretation Code <14.0 [facility] Comment on above: Result Comment: Perf ormed at: [facility] [address] [id number] PhD Maya Brown Performed By: #### 1 [id number] #### [facility] [address] [place] [address] CHEMISTRYOrdered By: SYSTEM SYSTEM on 03-07-2023 CRP [Mass/Vol] 0.8 mg/dL Normal <=1.9mg/dL [facility] Remis ol CRPon 03-07-2023 CRP [Mass/Vol] 0.8 mg/dL Normal <=1.9 [facility] Comment on above: Performed By: #### 1 [id number] #### [facility] [address] [place] [address] Consent for Treatmenton 02-17 Consent for Treatment [id number] 0CD:127 Normal [facility] HEMATOLOGYOrdered By: Keisha Fernandez on 03-07-2023 Sed Rate Automated 12 mm/h Normal 0 - 34 mm/hr [facility] HemeAutoSS Physician Orderon 03-07-2023 Physician Order [id number]. 00CD:127 Normal [facility] Sed Rate Automatedon 023 Sed Rate Automated 12 mm/hr Normal 0-34 [facility] Comment on above: Performed By: #### 1 [id number] #### [facility] [address] [place] [address] HISTORY PHYSICALon HISTORY PHYSICAL HNO ID: [id number] Author: Santiago Evans MD, PhD Service: ? Author Type: Physician Type: HANDP Filed: 02/12/2023 11:00 PM Note Text: [facility] [place] January 19, 2023 Claire Rocha Requesting Physician: [...] and a (more content not included)... Normal [facility] CNOVon 01-19-2023 CNOV Office Visit (NEADMN ) CLAIRE ROCHA ([id number]) 1970 F Date Time Provider Department 01/19/23 9:00 AM SANTIAGO EVANS During your visit today, we recorded the following information about you: Pulse Blood pressure Weight Height 90/minute 128/77 73.9 kg 1.6 m Santiago Evans MD, PhD 02/12/2023 11:00 PM Signed [facility] [place] January 19, 2023 Claire Rocha Requesting Physician: [...] central sen (more content not included)... Normal Chris [facility] Chris T3, TOTAL (TRIIODOTHYRONINE) on 09-29-2022 T3, TOTAL 108 ng/dL Normal 71-180 [facility] Comment on above: Performed By: #### T 3TOTAL #### [facility] [address] [place] [address] Dr. Gigi Campos FREE T4on 09-28-2022 Free T4 [Mass/Vol] 1.06 ng/dL Normal 0.76-1.46 [facility] Comment on above: Performed By: #### F T4 #### [facility] [address] [place] [address] Dr. Gigi Campos TSHon 09-28-2022 TSH 2.591 uIU/mL Normal 0.358-3.740 [facility] Comment on above: Performed By: #### T SH #### [facility] [address] [place] [address] Dr. Gigi Campos Quick Strepon 09-10-2022 S. pyogenes Org specific cx Ql (Throat) Negative [employer] [facility] [employer] Other Quick Strep [employer] [facility] [employer] Other XR hip BI w UVC1Fhg 06-05-20 XR hip BI w PEL1V [facility] [place] [address] XRay Report Signed Patient: Claire Rocha MR#: [id number] : 1970 Acct:[id number] Age/Sex: 51 / F ADM Date: 06/05/22 Loc: [facility] Room: Type: [facility] CLI Attending Dr: Louis Palafox DO Copies to: [...] Marce Echeverria M.D.06/05/2022 5:47 PM Dictation Location: [facility] Transcribed By: [facility] 06/05/221746 Dictated By: Marce Echeverria MD 06/05/221744 Signed By: 06/05/221746 Normal [facility] XR hip BI w PEL1V [facility] [employer] Other XR hip BI w PEL1V [facility] Main [place] [facility] [employer] Other XR hip BI w PEL1V [address] [facility] [employer] Other XR [place] [address] [employer] Other XR hip BI w PEL1V XRay Report [employer] Other XR hip BI w PEL1V Signed [employer] Other XR hip BI w PEL1V Patient: David Rocha ra MR#: [id number] [place] [employer] Other XR hip BI w PEL1V 882 [employer] Other XR hip BI w PEL1V : 1970 Acct:[id number] [employer] Other XR hip BI w PEL1V Age/Sex: 51 / F ADM Date: 06/05/22 [employer] Other XR hip BI w PEL1V Loc: [facility] Room: Type : [facility] [employer] Other XR hip BI w PEL1V Attending Dr: Louis Palafox DO [employer] Other XR hip BI w PEL1V Copies to: Louis Palafox DO [employer] Other XR hip BI w PEL1V Ordering Provider: Louis Palafox DO [employer] Other XR hip BI w PEL1V Date of Service: 06/05/22 [employer] Other XR hip BI w PEL1V XR/XR hip BI w PEL1V: Pain in right hip;Pain in left hip [employer] Other XR hip BI w PEL1V PELVIS WITH BILATERA L HIPS -3 images [employer] Other XR hip BI w PEL1V CLINICAL HISTORY: Bilateral hip and groin pain, greater on the right. No injury. [employer] Other XR hip BI w PEL1V COMPARISON: 07/27/2020 left hip [employer] Other XR hip BI w PEL1V AP view of the pelvi s frog-lateral views of both hips were obtained. No fracture, dislocation or [employer] Other XR hip BI w PEL1V bony destruction is seen. The hip joint spaces are symmetric. There is no significant arthritic [employer] Other XR hip BI w PEL1V change. The soft tissues are unremarkable. [employer] Other XR hip BI w PEL1V XR/XR hip BI w PEL1V [employer] Other XR hip BI w PEL1V IMPRESSION: [employer] Other XR hip BI w PEL1V NO ACUTE PLAIN FILM FINDINGS. [employer] Other XR hip BI w PEL1V Impression dictated by: Marce Echeverria M.D.06/05/2022 5:47 PM [employer] Other XR hip BI w PEL1V Dictation Location: [facility] [employer] Other XR hip BI w PEL1V Transcribed By: PWS 06/05/22 1746 [place] [employer] Other XR hip BI w PEL1V Dictated By: Marce Echeverria MD 06/05/22 1748 [employer] Other XR hip BI w PEL1V Signed By: [facility] [employer] Other XR hip BI w PEL1V 06/05/22 1748 [facility] [employer] Other TSHon 04-29-2022 TSH 0.320 uIU/mL Critically low 0.358-3.740 [facility] Comment on above: Performed By: #### T #### [facility] [address] [place] [address] Dr. Gigi Campos SCREENING MAMMOGRAM W/MIYA, BILATERAL*on [...] VERY IMPORTANT TO YOUR HEALTH. THE CURRENT [employer] GUIDELINES RECOMMEND ANNUAL MAMMOGRAPHY BEGINNING AT AGE 40. THIS FACILITY UTILIZES A REMINDER SYSTEM TO ENSURE ALL PATIENTS RECEIVE A REMINDER NOTIFICATION AT THE APPROPRIATE TIME BASED ON THE RECOMMENDATIONS OF THIS EXAM. BOARD CERTIFIED RADIOLOGIST. ACCREDITED BY THE APR AND FDA. Report reported and signed by Flakita Gan on 01/23/2022 1309 Normal [facility] Tele[employer] XR KUB 1 VIEWon 01-05-2022 XR KUB [...] NORY DAVILA Date: 2022-01-05 16:27 Normal [facility] CBC AUTO DIFFon 11-22-2021 BASO # 0.1 103/ul Normal 0.0-0.1 [facility] Comment on above: Performed By: #### C BC #### [facility] [address] [address] [address] Gigi Campos Basophils/100 WBC (Bld) 1.0 % Normal 0.2-2.0 [facility] Comment on above: Performed By: #### C BC #### [facility] [address] [place] [address] Dr. Gigi Campos EO # 0.2 103/ul Normal 0.0-0.7 [facility] Comment on above: Performed By: #### C BC #### [facility] [address] [place] [address] Dr. Gigi Campos Eosinophils/100 WBC (Bld) 3.8 % Normal 0.9-7.0 [facility] Comment on above: Performed By: #### C BC #### [facility] [address] [place] [address] Dr. iGgi Campos Erythrocyte distribution width (RBC) [Ratio] 12.1 % Normal 11.0-15.0 [facility] Comment on above: Performed By: #### C BC #### [facility] [address] [place] [address] Dr. Gigi Campos Hematocrit (Bld) [Volume fraction] 43.0 % Normal 36.0-48.0 [facility] Comment on above: Performed By: #### C BC #### [facility] [address] [place] [address] Dr. Gigi Campos Hemoglobin (Bld) [Mass/Vol] 14.2 g/dL Normal 12.0-16.0 [facility] Comment on above: Performed By: #### C BC #### [facility] [address] [place] [address] Dr. Gigi Campos IG # 0.00 10e3/ul Normal 0.00-0.03 [facility] Comment on above: Performed By: #### C BC #### [facility] [address] [place] [address] Dr. Gigi Campos IG % 0.0 % Normal 0.0-0.5 [facility] Comment on above: Performed By: #### C BC #### [facility] [address] [place] [address] Dr. Gigi Campos LYMPH # 1.9 103/ul Normal 1.2-3.8 [facility] Comment on above: Performed By: #### C BC #### [facility] [address] [place] [address] Dr. Gigi Campos Lymphocytes/100 WBC (Bld) 35.7 % Normal 20.5-60.0 [facility] Comment on above: Performed By: #### C BC #### [facility] [address] [place] [address] Dr. Gigi Campos MANUAL DIFF REQ NO Normal [facility] Comment on above: Performed By: #### C BC #### [facility] [address] [place] [address] Dr. Gigi Campos MCH (RBC) [Entitic mass] 30.4 pg Normal 26.7-34.0 [facility] Comment on above: Performed By: #### C BC #### [facility] [address] [place] [address] Dr. Gigi Campos MCHC (RBC) [Mass/Vol] 33.0 g/dL Normal 29.9-35.2 [facility] Comment on above: Performed By: #### C BC #### [facility] [address] [place] [address] Dr. Gigi Campos MCV (RBC) [Entitic vol] 92.1 fL Normal 81.0-99.0 [facility] Comment on above: Performed By: #### C BC #### [facility] [address] [place] [address] Dr. Gigi Campos MONO # 0.4 103/ul Normal 0.3-0.8 [facility] Comment on above: Performed By: #### C BC #### [facility] [address] [place] [address] Dr. Gigi Campos Monocytes/100 WBC (Bld) 6.8 % Normal 1.7-12.0 [facility] Comment on above: Performed By: #### C BC #### [facility] [address] [place] [address] Dr. Gigi Campos NEUT # 2.8 103/ul Normal 1.4-6.5 [facility] Comment on above: Performed By: #### C BC #### [facility] [address] [place] [address] Dr. Gigi Campos Neutrophils/100 WBC (Bld) 52.7 % Normal 43.0-75.0 [facility] Comment on above: Performed By: #### C BC #### [facility] [address] [place] [address] Dr. Gigi Campos Platelet mean volume (Bld) [Entitic vol] 8.9 fL Critically low 9.5-13.5 [facility] Comment on above: Performed By: #### C BC #### [facility] [address] [place] [address] Dr. Gigi Campos PLT 281 103/ul Normal 150-450 [facility] Comment on above: Performed By: #### C BC #### [facility] [address] [place] [address] Dr. Gigi Campos RBC 4.67 106/ul Normal 4.20-5.40 [facility] Comment on above: Performed By: #### C BC #### [facility] [address] [place] [address] Dr. Gigi Campos WBC 5.3 103/ul Normal 4.0-11.0 [facility] Comment on above: Performed By: #### C BC #### [facility] [address] [place] [address] Dr. Gigi Campos LIPID PROFILEon 11-22-2021 CHOL-HDL RATIO NORM SEE BELOW Normal [facility] Comment on above: Result Comment: 3.3 - 4.4 LOW RISK 4.4 - 7.1 AVERAGE RISK 7.1 - 11.0 MODERATE RISK >11.0 HIGH RISK Performed By: #### T YANELY CMP, LIPID #### [facility] [address] [address] [address] Gigi Campos Cholesterol [Mass/Vol] 222 mg/dL Critically high <=200 [facility] Comment on above: Performed By: #### T YANELY, CMP, LIPID #### [facility] [address] [address] [address] Gigi Campos Cholesterol in HDL [Mass/Vol] 60 mg/dL Normal 40-60 [facility] Comment on above: Performed By: #### T YANELY CMP, LIPID #### [facility] [address] [address] [address] Gigi Campos Cholesterol in LDL [Mass/Vol] 148.2 mg/dL Normal [facility] Comment on above: Performed By: #### T YANELY CMP, LIPID #### [facility] [address] [address] [address] Gigi Campos Cholesterol.total/Ch olesterol in HDL [Mass ratio] 3.7 {ratio} Normal [facility] Comment on above: Performed By: #### T YANELY CMP, LIPID #### [facility] [address] [address] [address] Gigi Campos HDL NORMAL > or = 60 mg/dl - LO W CARDIOVASCULAR RISK <40 mg/dl - HIGH CARDIOVASCULAR RISK Normal [facility] Comment on above: Performed By: #### T YANELY, CMP, LIPID #### [facility] [address] [address] [address] Gigi Campos LDL CALC NORMAL SEE BELOW Normal The [facility] Comment on above: Result Comment: <100 mg/dl OPTIMAL 100 - 129 mg/dl NEAR OR ABOVE OPTIMAL 130 - 159 mg/dl BORDERLINE HIGH 160 - 189 mg/dl HIGH >190 mg/dl VERY HIGH Performed By: #### T SH, CMP, LIPID #### [facility] [address] [address] [address] Gigi Campos Triglyceride [Mass/Vol] 69 mg/dL Normal <=150 [facility] Comment on above: Performed By: #### T SH, CMP, LIPID #### [facility] [address] [place] [address] Dr. Gigi Campos VLDL CALC 13.8 mg/dL Normal [facility] Comment on above: Performed By: #### T SH, CMP, LIPID #### [facility] [address] [place] [address] Dr. Gigi Campos PROF 14(COMP METB)on 022 Albumin [Mass/Vol] 3.8 g/dL Normal 3.4-5.0 [facility] Comment on above: Performed By: #### T YANELY CMP, LIPID #### [facility] [address] [place] [address] Dr. Gigi Campos Albumin/Globulin [Mass ratio] 1.2 {ratio} Normal [facility] Comment on above: Performed By: #### T SH, CMP, LIPID #### [facility] [address] [place] [address] Dr. Gigi Campos ALP [Catalytic activity/Vol] 61 U/L Normal 46-116 [facility] Comment on above: Performed By: #### T SH, CMP, LIPID #### [facility] [address] [place] [address] Dr. Gigi Campos ALT [Catalytic activity/Vol] 21 U/L Normal 14-59 [facility] Comment on above: Performed By: #### T SH, CMP, LIPID #### [facility] [address] [place] [address] Dr. Gigi Campos Anion gap [Moles/Vol] 10.6 mmol/L Normal [facility] Comment on above: Performed By: #### T SH, CMP, LIPID #### [facility] [address] [place] [address] Dr. Gigi Campos AST [Catalytic activity/Vol] 19 U/L Normal 15-37 [facility] Comment on above: Performed By: #### T SH, CMP, LIPID #### [facility] [address] [place] [address] Dr. Gigi Campos Bilirubin [Mass/Vol] 0.4 mg/dL Normal 0.2-1.0 [facility] Comment on above: Performed By: #### T SH, CMP, LIPID #### [facility] [address] [place] [address] Dr. Gigi Campos Calcium [Mass/Vol] 9.1 mg/dL Normal 8.5-10.1 [facility] Comment on above: Performed By: #### T SH, CMP, LIPID #### [facility] [address] [place] [address] Dr. Gigi Campos Chloride [Moles/Vol] 106 mmol/L Normal 98-107 [facility] Comment on above: Performed By: #### T SH, CMP, LIPID #### [facility] [address] [place] [address] Dr. Gigi Campos CO2 [Moles/Vol] 29.9 mmol/L Normal 21.0-32.0 [facility] Comment on above: Performed By: #### T SH, CMP, LIPID #### [facility] [address] [place] [address] Dr. Gigi Campos Creatinine [Mass/Vol] 0.79 mg/dL Normal 0.55-1.02 [facility] Comment on above: Performed By: #### T SH, CMP, LIPID #### [facility] [address] [place] [address] Dr. Gigi Campos EGFR-AF MONTENEGRIN >60 Normal >=60 [facility] Comment on above: Performed By: #### T SH, CMP, LIPID #### [facility] [address] [place] [address] Dr. Gigi Campos EGFR-NON AF MONTENEGRIN >60 Normal >=60 [facility] Comment on above: Performed By: #### T SH, CMP, LIPID #### [facility] [address] [place] [address] Dr. Gigi Campos Globulin (S) [Mass/Vol] 3.3 g/dL Normal [facility] Comment on above: Performed By: #### T SH, CMP, LIPID #### [facility] [address] [address] [address] Gigi Campos Glucose [Mass/Vol] 92 mg/dL Normal 74-106 [facility] Comment on above: Performed By: #### T SH, CMP, LIPID #### [facility] [address] [place] [address] Dr. Gigi Campos Potassium [Moles/Vol] 4.5 mmol/L Normal 3.5-5.1 [facility] Comment on above: Performed By: #### T SH, CMP, LIPID #### [facility] [address] [place] [address] Dr. Gigi Campos Protein [Mass/Vol] 7.1 g/dL Normal 6.4-8.2 [facility] Comment on above: Performed By: #### T SH, CMP, LIPID #### [facility] [address] [place] [address] Dr. Gigi Campos Sodium [Moles/Vol] 142 mmol/L Normal 136-145 [facility] Comment on above: Performed By: #### T SH, CMP, LIPID #### [facility] [address] [place] [address] Dr. Gigi Campos Urea nitrogen [Mass/Vol] 25.0 mg/dL Critically high 7.0-18.0 [facility] Comment on above: Performed By: #### T SH, CMP, LIPID #### [facility] [address] [place] [address] Dr. Gigi Campos Urea nitrogen/Creatinine [Mass ratio] 31.6 mg/mg Normal [facility] Comment on above: Performed By: #### T SH, CMP, LIPID #### [facility] [address] [place] [address] Dr. Gigi Campos TSHon 11-22-2021 TSH 6.390 uIU/mL Critically high 0.358-3.740 [facility] Comment on above: Performed By: #### T SH, CMP, LIPID #### [facility] [address] [place] [address] Dr. Gigi Campos TSH RANGE SEE BELOW Normal [facility] Comment on above: Result Comment: <0.3 4 UIU/ml HYPERTHYROID 0.34-5.60 UIU/ml EUTHYROID >5.60 UIU/ml HYPOTHYROID Performed By: #### T SH, CMP, LIPID #### [facility] [address] [place] [address] Dr. Gigi Campos VITAMIN D 25 OHon 11-22-2021 VIT D 25-OH 37.0 ng/mL Normal [facility] Comment on above: Performed By: #### V ITAD #### [facility] [address] [address] [address] Gigi Campos VIT D RANGES SEE BELOW Normal [facility] Comment on above: Result Comment: <20 ng/mL Vit D deficient 20 - <30 ng/mL Vit D insufficient 30 - 100 ng/mL Vit D sufficient >100 ng/mL Potential Toxicity Performed By: #### V ITAD #### [facility] [address] [place] [address] Dr. Gigi Campos Vital Signs Date Time Vital Sign Value Performing Clinician Facility 11-26-2023 15:01-0400 Body height 161.29 cm [facility] 11-26-2023 15:010400 Body mass index (BMI) [Ratio] 29.6 kg/m2 [facility] 11-26-2023 15:01-0400 Body weight 77.16 kg [facility] 11-26-2023 15:01-0400 Diastolic blood pressure 75 mm[Hg] [facility] 11-26-2023 15:01-0400 Heart rate 77 /min [facility] 11-26-2023 15:01-0400 Respiratory rate 12 /min [facility] 11-26-2023 15:01-0400 Systolic blood pressure 108 mm[Hg] [facility] 10-18-2023 13:49-0400 Body height 161.29 cm [facility] 10-18-2023 13:49-0400 Body mass index (BMI) [Ratio] 28.2 kg/m2 [facility] 10-18-2023 13:49-0400 Body temperature 97.9 [degF] [facility] 10-18-2023 13:49-0400 Body weight 73.48 kg [facility] 10-18-2023 13:49-0400 Diastolic blood pressure 76 mm[Hg] [facility] 10-18-2023 13:49-0400 Heart rate 90 /min [facility] 10-18-2023 13:49-0400 Systolic blood pressure 126 mm[Hg] [facility] 07-06-2023 10:30-0500 Body height 161.29 cm Wagner Ball Other [facility] [employer] Other 07-06-2023 10:30-0500 Body mass index (BMI) [Ratio] 30.34 kg/m2 Wagner Ball Other [facility] Other 07-06-2023 10:30-0500 Body weight 78.93 kg Wagner Ball Other [facility] Other 07-06-2023 10:30-0500 Diastolic blood pressure 78 mm[Hg] Wagner Ball Other [facility] Other 07-06-2023 10:30-0500 Respiratory rate 12 /min Wagner Ball Other [facility] Other 07-06-2023 10:30-0500 Systolic blood pressure 121 mm[Hg] Wagner Ball Other [facility] Other 04-23-2023 16:00-0500 Body height 161.29 cm Wagner Ball Other [facility] Other 04-23-2023 16:00-0500 Body mass index (BMI) [Ratio] 29.12 kg/m2 Wagner Ball Other [facility] Other 04-23-2023 16:00-0500 Body weight 75.75 kg Wagner Ball Other [facility] Other 01-26-2023 11:00-0400 Body height 161.29 cm Wagner Ball Other [facility] Other 01-26-2023 11:00-0400 Body mass index (BMI) [Ratio] 29.22 kg/m2 Wagner Ball Other [facility] Other 01-26-2023 11:00-0400 Body weight 76.02 kg Wagner Ball Other [facility] Other 01-26-2023 11:00-0400 Diastolic blood pressure 65 mm[Hg] Wagner Ball Other [facility] Other 01-26-2023 11:00-0400 Respiratory rate 12 /min Wagner Ball Other [facility] Other 01-26-2023 11:00-0400 Systolic blood pressure 101 mm[Hg] Wagner Ball Other [employer] Other 01-19-2023 08:53-0400 Body height 160 cm Santiago Evans MD, PhD Work Phone: [facility] 01-19-2023 08:53-0400 Body weight 73.94 kg Santiago Evans MD, PhD Work Phone: [facility] 01-19-2023 08:53-0400 Diastolic blood pressure 77 mm[Hg] Santiago Evans MD, PhD Work Phone: [facility] 01-19-2023 08:53-0400 Heart rate 90 /min Santiago Evans MD, PhD Work Phone: [facility] 01-19-2023 08:53-0400 SaO2% (BldA) [Mass fraction] 100 % Santiago Evans MD, PhD Work Phone: [facility] 01-19-2023 08:53-0400 Systolic blood pressure 128 mm[Hg] Santiago Evans MD, PhD Work Phone: [facility] 12-15-2022 12:00-0400 Body height 161.29 cm Wagner Ball Other [facility] Other 12-15-2022 12:00-0400 Body mass index (BMI) [Ratio] 27.9 kg/m2 Wagner Ball Other [facility] Other 12-15-2022 12:00-0400 Body weight 72.58 kg Wagner Ball Other [facility] Other 12-15-2022 12:00-0400 Diastolic blood pressure 85 mm[Hg] Wagner Ball Other [facility] Other 12-15-2022 12:00-0400 Systolic blood pressure 115 mm[Hg] Wagner Ball Other [facility] Other 10-16-2022 16:15-0400 Body height 161.29 cm Wagner Ball Other [employer] Other 10-16-2022 16:15-0400 Body mass index (BMI) [Ratio] 29.69 kg/m2 Wagner Ball Other [employer] Other 10-16-2022 16:15-0400 Body weight 77.25 kg Wagner Ball Other [employer] Other 10-16-2022 16:15-0400 Diastolic blood pressure 82 mm[Hg] Wagner Ball Other [facility] Other 10-16-2022 16:15-0400 SaO2% (BldA) [Mass fraction] 97 % Wagner Ball Other [employer] Other 10-16-2022 16:15-0400 Systolic blood pressure 115 mm[Hg] Wagner Ball Other [employer] Other 09-10-2022 10:15-0400 Body height 161.29 cm Yara Mahajan Other [employer] Other 09-10-2022 10:15-0400 Body mass index (BMI) [Ratio] 29.12 kg/m2 Yara Mahajan Other [facility] Other 09-10-2022 10:15-0400 Body temperature 98.3 [degF] Yara Mahajan Other [facility] Other 09-10-2022 10:15-0400 Body weight 75.75 kg Yara Mahajan Other [facility] Other 09-10-2022 10:15-0400 Diastolic blood pressure 66 mm[Hg] Yara Mahajan Other [facility] Other 09-10-2022 10:15-0400 Respiratory rate 16 /min Yara Mahajan Other [facility] Other 09-10-2022 10:15-0400 SaO2% (BldA) [Mass fraction] 97 % Yara Mahajan Other [employer] Other 09-10-2022 10:15-0400 Systolic blood pressure 111 mm[Hg] Yara Mahajan Other [facility] Other 08-21-2022 14:30-0500 Body height 161.29 cm Wagner Ball Other [employer] Other 08-21-2022 14:30-0500 Body mass index (BMI) [Ratio] 29.29 kg/m2 Wagner Ball Other [facility] Other 08-21-2022 14:30-0500 Body weight 76.2 kg Wagner Ball Other [facility] Other 08-21-2022 14:30-0500 Diastolic blood pressure 76 mm[Hg] Wagner Ball Other [facility] Other 08-21-2022 14:30-0500 Respiratory rate 12 /min Wagner Ball Other [employer] Other 08-21-2022 14:30-0500 Systolic blood pressure 118 mm[Hg] Wagner Ball Other [employer] Other 06-05-2022 15:00-0500 Body height 161.29 cm Louis Vivienne Other [facility] Other 06-05-2022 15:00-0500 Body mass index (BMI) [Ratio] 28.42 kg/m2 Louis Vivienne Other [facility] Other 06-05-2022 15:00-0500 Body weight 73.94 kg Louis Vivienne Other [employer] Other Encounters Encounter Date Encounter Type Care Provider Facility Start: 11-26-2023 End: 11-26-2023 ambulatory [facility] Work Phone: Start: 11-26-2023 End: 11-26-2023 Patient encounter procedure [facility] Work Phone: Start: 10-18-2023 End: 10-18-2023 Patient encounter procedure [facility] Work Phone: Start: 09-03-2023 Non-patient / Non-visit [facility] [employer] Work Phone: Start: 07-30-2023 End: 07-30-2023 ambulatory Wagner Jade Other [facility] Other Start: 07-30-2023 Telephone encounter Wagner Jade [facility] Start: 07-09-2023 End: 07-09-2023 ambulatory Wagner Jade Other [facility] Other Start: 07-09-2023 Telephone encounter Wagner Jade [facility] Start: 07-06-2023 End: 07-06-2023 ambulatory Wagner Jade Other [employer] Other Start: 07-06-2023 Office outpatient vi sit 15 minutes Wagner Ball [facility] Start: 07-06-2023 Telephone encounter Wagner Jade [facility] Start: 04-23-2023 End: 04-23-2023 ambulatory Wagner Jade Other [facility] Other Start: 04-23-2023 Office outpatient vi sit 15 minutes Wagner Ball [facility] Start: 04-09-2023 End: 04-09-2023 ambulatory Wagner Jade Other [facility] Other Start: 04-09-2023 Nursing evaluation o f patient and report Wagner Jade [facility] Start: 03-07-2023 End: 03-08-2023 ambulatory Jazmine Rey Facility:[facility] Start: 03-07-2023 End: 03-07-2023 Patient encounter procedure Jazmine Rey [facility] Start: 02-21-2023 End: 02-21-2023 ambulatory Wagner Jade Other [employer] Other Start: 02-21-2023 Telephone encounter Wagner Jade [facility] Start: 02-02-2023 End: 02-02-2023 ambulatory Wagner Jade Other [employer] Other Start: 02-02-2023 Telephone encounter Wagner Jade EDUAR Olga [facility] Start: 01-31-2023 End: 01-31-2023 ambulatory Wagner Jade Other [employer] Other Start: 01-31-2023 Telephone encounter [facility] Start: 01-29-2023 End: 01-29-2023 ambulatory Wagner Jade Other [employer] Other Start: 01-29-2023 Telephone encounter Wagner Espinoza [facility] Start: 01-26-2023 End: 01-26-2023 ambulatory Wagner Jade Other [facility] Other Start: 01-26-2023 Encounter for genera l adult medical examination without abnormal findings Wagner Jade [facility] Start: 01-26-2023 Periodic preventive med est patient 40-64yrs Wagner Jade [facility] Start: 01-19-2023 End: 01-19-2023 ambulatory SANTIAGO EVANS Facility:[facility] Start: 01-19-2023 End: 01-19-2023 Patient encounter procedure Santiago Evans MD, PhD Work Phone: Neurology Comment on above: Pain in both lower e xtremities (Primary Dx); Cold hands and feet without peripheral vascular disease; Orthostatic hypotension; Small fiber neuropathy; Neuropathic pain Start: 12-18-2022 End: 12-18-2022 ambulatory Louis Palafox Other [facility] Other Start: 12-18-2022 Telephone encounter Louis Espinoza [facility] Start: 12-15-2022 End: 12-15-2022 ambulatory Wagner Jade Other [facility] Other Start: 12-15-2022 Office outpatient vi sit 15 minutes Wagner Jade [facility] Start: 10-16-2022 End: 10-16-2022 ambulatory Wagner Jade Other [employer] Other Start: 10-16-2022 Office outpatient vi sit 15 minutes Wagner Jade [facility] Start: 09-28-2022 End: 09-29-[address] WAGNER JADE Facility: Start: 09-26-2022 End: 09-26-2022 ambulatory Wagner Jade Other [facility] Other Start: 09-26-2022 Telephone encounter Wagner Jade [facility] Start: 09-12-2022 End: 09-12-2022 ambulatory Wagner Jade Other [facility] Other Start: 09-12-2022 Telephone encounter Wagner Jade [facility] Start: 09-11-2022 End: 09-11-2022 ambulatory Wagner Jade Other [employer] Other Start: 09-11-2022 Office outpatient vi sit 15 minutes Wagner Jade [facility] Start: 09-10-2022 End: 09-10-2022 ambulatory Yara Mahajan Other [employer] Other Start: 09-10-2022 Office outpatient vi sit 25 minutes Yara Mahajan [facility] Start: 09-04-2022 End: 09-04-2022 ambulatory Wagner Jade Other [facility] Other Start: 09-04-2022 Telephone encounter Wagner Jade [facility] Start: 08-22-2022 End: 08-22-2022 ambulatory Wagner Jade Other [facility] Other Start: 08-22-2022 Telephone encounter Wagner Jade [facility] Start: 08-21-2022 End: 08-21-2022 ambulatory Wagner Jade Other [facility] Other Start: 08-21-2022 Office outpatient vi sit 25 minutes Wagner Jade [facility] Start: 08-11-2022 End: 08-11-2022 ambulatory Wagner Jade Other [facility] Other Start: 08-11-2022 Telephone encounter Wagner WITT [facility] Start: 07-03-2022 End: 07-03-2022 ambulatory Louis Palafox Other [facility] Other Start: 07-03-2022 Telephone encounter Louis WITT [facility] Start: 06-05-2022 End: 06-05-2022 ambulatory Louis Palafox Facility:[facility] Start: 06-05-2022 Office outpatient ne w 30 minutes Louis Palafox [facility] Start: 06-05-2022 End: 06-05-2022 ambulatory DO Wagner Jade Work Phone: [facility] Work Phone: Start: 06-05-2022 End: 06-05-2022 Patient encounter procedure DO Wagner Jade Work Phone: [facility] Start: 04-29-2022 End: 04-30-[address] WAGNER JADE Facility:[facility] Start: 01-05-2022 End: 01-06-[address] WAGNER JADE Facility:[facility] Start: 11-22-2021 End: 11-23-[address] WAGNER JADE Facility:[facility] Start: 11-21-2021 Adult health examination Wagner Jade Other [facility] Other Start: 09-03-2018 Patient encounter procedure REID FAY [facility] Procedures Date Procedure Procedure Detail Performing Clinician Start: 06-05-2022 Plain x-ray of pelvi s and lower extremity DO Wagner Ball Work Phone: Start: 09-25-2014 excision of lipoma o f left side Jazmine Rey Start: 06-18-2007 hand surgery Jazmine hatfield Start: 06-18-1989 section Jazmine Rey Depression screening Yael Jade Other Screening for malign ant neoplasm of breast Wagner Jade Other Plan of Treatment Date Care Activity Detail Author Start: 02-16-2023 Influenza vaccination INFLUENZA (#1) [facility] Start: 06-18-2022 DEPRESSION ASSESSMENT DEPRESSION ASS ESSMENT [facility] Start: 2020 SHINGRIX VACCINE (1 of 2) SHINGRIX VACCINE (1 of 2) [facility] Start: 2015 COLOGUARD (FIT-DNA) COLOGUARD (FIT-D NA) [facility] Start: 2015 Colonoscopy COLONOSCOPY [facility] Start: 2015 COLORECTAL CANCER SCREENING COLORECTAL CANCER SCREENING [facility] Start: [address] COLONOGRAPHY [facility] Start: 2015 DIABETES SCREEN DIABETES SCREEN [facility] Start: 2015 FECAL OCCULT BLOOD FECAL OCCULT BLOO D [facility] Start: 2015 LIPID SCREEN LIPID SCREEN [facility] Start: 2015 SIGMOIDOSCOPY SIGMOIDOSCOPY [facility] Start: 2010 Mammography MAMMOGRAM [facility] Start: 2000 HPV TESTING HPV TESTING [facility] Start: 1991 PAP TESTING PAP TESTING [facility] Start: 1989 Urine microalbumin profile DTAP,TDAP,TD (1 - Tdap) [facility] Start: 1988 HEPATITIS C SCREENING HEPATITIS C SC [facility] Start: 1988 HIV SCREENING HIV SCREENING [facility] Start: 1970 COVID-19 VACCINE (#1) COVID-19 VACCI NE (#1) [facility] Start: 1970 HEPATITIS B (1 of 3 - 3-dose series) HEPATITIS B (1 of 3 - 3-dose series) [facility] NEURO CARDIO AUTONOM IC REFLEX W/WO TILT NEURO CARDIO AUTONOMIC REFLEX W/WO TILT Procedures Routine Pain in both lower extremities Cold hands and feet without peripheral vascular disease Orthostatic hypotension Small fiber neuropathy Ordered: 01/19/2023 [facility] Work Phone: Comment on above: Ordered: 01/19/2023 NEURO QSART NEURO QSART Proc edures Routine Pain in both lower extremities Small fiber neuropathy Ordered: 01/19/2023 [facility] Work Phone: Comment on above: Ordered: 01/19/2023 XR Mandible LE 3 Views [facility] Payers Date Payer Category Payer Unknown [id number] 2022 Self-pay [id number] 1970 Unknown [id number] 2.16.84 [id number] 1970 Unknown [id number] 2.16.84 [id number] 1970 Unknown [id number] 2.16.84 [id number] 1970 Unknown [id number] 2.16.84 [id number] 1970 Unknown [id number] 2.16.8 [id number] 1959 Unknown [id number] 1959 Unknown [id number] [id number] Unknown [id number] 2.16.8 [id number] Social History Date Type Detail [facility] Work Phone: Start: 1970 Sex Assigned At Female F [facility] Start: 01-19-2023 Sex Assigned At F [facility] Start: 01-19-2023 End: 07-06-2023 Tobacco smoking status NHIS Never smoked tobacco [facility] Start: 01-19-2023 Tobacco use and exposure Smokeless tobacco non-user [facility] Start: 01-19-2023 Alcohol intake Ex-drinker (finding) [facility] Start: 01-19-2023 History of Social function [facility] Start: 01-18-2023 Gender identity Identifies as female gender (finding) [facility] Start: 01-18-2023 Sexual orientation Heterosexual (tyrese meredith) [facility] Tobacco smoking status Never [facility] Clinical Notes 01-23-2022 to 07-06-2023 [...] index [BMI] 30.0-30.9, adult (ICD-10 - Z68.30) [facility] Other 01-19-2024 Evaluation note* Encounter Date Diagnosis Assessment Notes Treatment Notes Treatment Clinical Notes Jun, Autoimmune thyroiditis (ICD-10 - E06.3) Jun, Other obesity due to excess calories (ICD-10 - E66.09) Jun, Body mass index [BMI] 30.0-30.9, adult (ICD-10 - Z68.30) [facility] Other 11-06-2023 Evaluation note* Encounter Date Diagnosis [...] weekly. Increases risk for of COVID complications. [facility] Other 10-23-2023 Evaluation note* Encounter Date Diagnosis Assessment Notes Treatment Notes Treatment Clinical Notes Mar, Vitamin B12 deficiency anemia due to intrinsic factor deficiency (ICD-10 - D51.0) [facility] Other 09-20-2023 Evaluation + Plan note Diagnostic Tests Pending * Rheumatoid Factor Quantitative 03/07/23 * MICHAEL w/Reflex if POS 03/07/23 [facility]09-06-2023 Evaluation note* Encounter Date Diagnosis Assessment Notes Treatment Notes Treatment Clinical Notes Feb, Herpesviral vesicular dermatitis (ICD-10 - B00.1) [facility] Other 08-16-2023 Evaluation note* Encounter Date Diagnosis Assessment Notes Treatment Notes Treatment Clinical Notes Jan, Autoimmune thyroiditis (ICD-10 - E06.3) [facility] Other 08-11-2023 Evaluation note* Encounter Date Diagnosis [...] diet, proper sleep routine. Referral to Neurology [facility] Other 08-04-2023 History and physical note* Santiago Evans MD, PhD - 01/19/2023 10:28 PM EDT [facility] [place] January 19, 2023 Claire Rocha Requesting Physician: [...] to finalize current assessment) [facility]* Encounter Date Diagnosis Assessment Notes Treatment Notes Treatment Clinical Notes Nov, Overweight (ICD-10 - E66.3) This patient has been instructed on a low-fat, high-fiber diet. They are instructed to reduce calories, portion sizes and snacks. It is recommended that they exercise for 30 minutes, 3-5 times weekly. Nov, Autoimmune thyroiditis (ICD-10 - E06.3) Euthyroid, continue Levothyroxine [facility] Other 06-30-2023 Evaluation note* Encounter Date Diagnosis [...] office today. Prior medical notes from Wagner kyle and history have been reviewed. I do [...] move forward with treatment at this time. [facility] Other 05-01-2023 Evaluation note* Encounter Date Diagnosis [...] Euthyroid on recent testing Continue present treatment [facility] Other 04-11-2023 Evaluation note* Encounter Date Diagnosis Assessment Notes Treatment Notes Treatment Clinical Notes Sep, Autoimmune thyroiditis (ICD-10 - E06.3) [facility] Other 03-28-2023 Evaluation note* Encounter Date Diagnosis Assessment Notes Treatment Notes Treatment Clinical Notes Aug, Acute cough (ICD-10 - R05.1) [facility] 03-27-2023 Evaluation note* Encounter Date Diagnosis [...] for congestion, Tylenol for pain and fever. [facility] Other 03-26-2023 Evaluation note* Encounter Date Diagnosis [...] treatment plan. Patient left in stable condition [facility] Other 03-20-2023 Evaluation note* Encounter Date Diagnosis Assessment Notes Treatment Notes Treatment Clinical Notes Aug, Overweight (BMI 25.0-29.9) (ICD-10 - E66.3) [facility] Other 03-07-2023 Evaluation note* Encounter Date Diagnosis Assessment Notes Treatment Notes Treatment Clinical Notes Aug, Overweight (BMI 25.0-29.9) (ICD-10 - E66.3) [facility] Other 03-06-2023 Evaluation note* Encounter Date Diagnosis [...] and structure, left thigh (ICD-10 - M85.852) [facility] Other 02-24-2023 Evaluation note* Encounter Date Diagnosis Assessment Notes Treatment Notes Treatment Clinical Notes Jul, 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 [facility] Other 08-08-2022 NoteHISTORY: Bone density screening. COMPARISON: [...] and signed by Flakita Gan on 01/23/2022 0921[facility] SpecialistEvaluation noteNo assessment information availableHolzer Medical Center [facility] Work Phone: Evaluation noteNo InformationNortNew [facility]ec[facility] [employer] Other Evaluation note* Diagnosis Pain in both lower extremities- Primary Cold hands and feet without peripheral vascular disease Other symptoms involving skin and integumentary tissues Orthostatic hypotension Small fiber neuropathy Unspecified hereditary and idiopathic peripheral neuropathy Neuropathic pain Neuralgia, neuritis, and radiculitis, unspecified documented in this encounter [facility] Diagnosis Onset Date Resolution Status DELFIN (generalized anxiety disorder) acute Hypothyroid acute Migraine headache acute Overweight acute [facility] Work Phone: History general Narrative - Reported* Type Description Date Medical History HYPOTHYROIDISM Medical History HASIMOTOS Medical History OSTEOPENIA Medical History MENOPAUSE Surgical History Surgical History SCOPING ENDREMETRIOSIS Surgical History SURGERY ON LEFT HAND Hospitalization History CHILD [facility] [employer] Other Hospital course Narrative No data available for this section [facility] No data available for this section [facility] No data available for this section [facility] HospitalReason for referral (narrative)* Reason Referral for dysesth esias of the lower extremities and chronic headache Diagnosis 1 Chronic daily headac he (R51.9) Diagnosis 2 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 Orthopedics has excluded spine and hip disorders as an etiology. Orthopedics referred her to [facility] but she does not wish to return. I an referring her for lower extremity dysesthesias and chronic tension headaches. Clinical Notes Include labs from [facility] Other Summary Purpose Family History Relationship Condition Age at Onset Recorded Date/T paip father Myocardial infarction Unknown Relationship Condition Age at Onset Recorded Date/T papi father Myocardial infarction Unknown Not Specified Hypertension Unknown Advance Directives Advance Directive Response Recorded Date/ Time Advance Directives No April 1:21pm Advance Directive Response Recorded Date/ Time Advance Directives No April 2:21pm Reason for Referral Reason bilateral lower leg weakness, frequent headach Diagnosis 1 Leg weakness, bilate ral (R29.898) Referral Organization [facility] Referring Provider First Name Louis Referring Provider Last Name Vivienne Referring Provider Specialty Orthopedic Surgery Referred Organization [facility] Referred Address [address] [place], [place] Referred Provider Specialty Neurology Referral Priority Routine Chief Complaint and Reason for Visit Chief Complaint Amb Documentation tooth extracted last , not feeling well fmla paperwork update Reason for Visit DELFIN (generalized anx iety disorder) Hypothyroid Migraine headache Overweight Additional Source Comments INFORMATION SOURCE (unrecogn ized section and content) DATE CREATED AUTHOR 09/04/2018 [facility] DATE CREATED AUTHOR AUTHOR'S ORGANIZ ATION 01/23/2022 [facility] Specialist DATE CREATED AUTHOR AUTHOR'S ORGANIZ ATION 06/09/2022 [facility] DATE CREATED AUTHOR AUTHOR'S ORGANIZ ATION 10/05/2022 [facility] DATE CREATED AUTHOR AUTHOR'S ORGANIZ ATION 02/13/2023 [facility] DATE CREATED AUTHOR AUTHOR'S ORGANIZ ATION 03/11/[address] [facility] Care Teams (unrecognized sec tion and content) Team Status: Active Member Role Status Dates Wagner Jade DO Primary Care Provider Active Team Status: Active Member Role Status Dates Wagner Jade DO Primary Care Provider Active Start: September 03, 2023 CECIL Bone Attending Provider Active Start : September 03, 2023 Team Status: Inactive Member Role Status Dates Wagner Jade DO Primary Care Provider Active Start: October 18, 2023 End: October 18, 2023 Eleni Almeida APRN DIALYSIS REGISTERED NURSE-C Attending Provider Act yamel Start: October 18, 2023 End: October 18, 2023 Team Status: Inactive Member Role Status Dates Wagner Jade , Primary Care Provide r, Attending Provider Active Start: November 26, 2023 End: November 26, 2023 Team Status: Inactive Member Role Status Dates Wagner Jade , Primary Care Provider Active Louis Palafox DO Attending Provider Active Team Status: Active Member Role Status Dates Wagner Jade , Primary Care Provider Active Taproom Attendant Relationship Specialty Start Date End Date Louis Palafox DO [address] [place] [address] Referring Orthopedics 12/28/22 Team Status: Active Member Role Status Dates Wagner Jade DO Primary Care Provider Active Start: September 03, 2023 CECIL Bone Attending Provider Active Start : September 03, 2023 Team Status: Inactive Member Role Status Dates Wganer Jade , Primary Care Provider Active Start: October 18, 2023 End: October 18, 2023 Eleni Almeida APRN DIALYSIS REGISTERED NURSE-C Attending Provider Act yamel Start: October 18, 2023 End: October 18, 2023 Team Status: Inactive Member Role Status Dates Wagner Kyle , Primary Care Provide r, Attending Provider Active Start: November 26, 2023 End: November 26, 2023 Goals (unrecognized section and content) Goals may be documented in a n alternate sectionNo InformationNo InformationNo InformationNo InformationNo InformationNo InformationNo InformationNo InformationNo InformationNo InformationNo InformationNo InformationNo InformationNo InformationNo InformationNo InformationNo InformationNo InformationNo InformationNo Information No data available for this sectionNo InformationNo InformationNo InformationNo InformationNo InformationNo InformationNo InformationGoals may be documented in an alternate section REASON FOR VISIT (unrecogniz ed section and content) Reason Comments New Patient Consult Source Comments (unrecognize d section and content) In the event this informatio n is protected by the Federal Confidentiality of Alcohol and Drug Abuse Patient Records regulations: The Federal rules restrict any use of the information to criminally investigate or prosecute any alcohol or drug abuse patient.[facility] FOR RECORDS PERTAINING TO PATIENTS WHO ARE [...] BE BASED ON THE PRIMARY CLINICAL RECORDS. [facility]. provides no warranty or guarantee of the accuracy or completeness of information in this document.
[2024-01-29 17:24] LABS: Thyroid Stimulating Hormone 2.767 uIU/mL (0.358-3.740)
== END 2024-01-29 16:32 | disposition home or self-care (01) ==
LOC: LAB 16:32
PROVIDERS: PCP Internal Medicine; Visit Provider Internal Medicine
DX: E03.8 Other specified hypothyroidism (principal); E06.3 Autoimmune thyroiditis
CPT/HCPCS: 36415; 84443

== ENCOUNTER 2024-02-16 08:13 | Outpatient (OUT) | payer OTHER, SELFPAY ==
--- OUTSIDE RECORDS SUMMARY | 2024-02-16 08:16 | XMS_ITS | CCD ---
Author Organization [facility] Care Team Providers Care Production Underwriter Name Role Phone REID FAY Attending Unavailable MATT TORRES Primary Care UnavailDO Wagner Jaramillo Primary Care Provider [phone] DO Louis Palafox Attending Provider [phone] Louis Palafox Attending Unavailable Louis Palafox Admitting Unavailable Wagner Jade Primary Care Unavailable Louis Palafox Unavailable Wagner Jade Unavailable Yara Mahajan Unavailable KALIE, DR RUSSELL Consulting Unavailable KALIE, DR RUSSELL Primary Care Unavailable KALIE, DR RUSSELL Admitting Unavailable BALL, DR RUSSELL Attending Unavailable KALIE, DR RUSSELL Primary Care Unavailable KALIE, DR RUSSELL Admitting Unavailable BALL, DR RUSSELL Attending Unavailable KALIE, DR RUSSELL Consulting Unavailable KALIE, DR RUSSELL Primary Care Unavailable VALLEJO, DR ANSLEY Murrieta Admitting Unavailable West, Nory Consulting Unavailable VALLEJO, DR ANSLEY Murrieta Attending Unavailable VALLEJO, DR ANSLEY Murrieta Consulting Unavailable BALL, DR RUSSELL Consulting Unavailable KALIE, DR RUSSELL Primary Care Unavailable KALIE, DR RUSSELL Admitting Unavailable KALIE, DR RUSSELL Attending Unavailable Louis Palafox DO Unavailable SANTIAGO EVANS Attending Unavailable WAGNER JADE Primary [...] Aug, Active acyclovir 0.05 mg/mg topical ointment (11 sources) Herpesvirus Nucleoside Analog DNA Polymerase Inhibitor, Herpes Simplex Virus Nucleoside Analog DNA Polymerase Inhibitor, Herpes Zoster Virus Nucleoside Analog DNA Polymerase Inhibitor Start: 11-09-2023 Acyclovir Active 1 APPLIC TOPICAL Six times daily November 09, 2023 12:00am Acyclovir 5 % 1 application Externally Five times a day for 7 days Active amitriptyline hydrochloride 10 mg oral tablet (9 sources) Tricyclic Antidepressant Start: 09-02-2023 End: 09-02-2023 [...] Serotonin-1b and Serotonin-1d Receptor Agonist Start: 11-09-2023 End: 12-27-2023 take 40 mg by mouth once Eletriptan Active 40 MG PO Once December 27, 2023 10:52pm may repeat in 2 hours if headache persists, max 80mg/24 hours Start: 11-23-2022 take 1 tablet by stefany [...] propionate 0.05 mg/actuat metered dose nasal spray (2 sources) Corticosteroid Start: 4 take 1 spray(s) nasal route twice daily Fluticasone Propionate (Flonase Allergy Relief) 50 mcg/actuation spray,suspension Active 1 SPRAY INTRANASAL Twice daily 16 October 18, 2023 12:00am administer into each nostril ibuprofen 800 mg oral tablet (3 sources) Nonsteroidal Anti-inflammatory Drug Start: 4 take 800 mg by mouth every eight hours Ibuprofen Active 800 MG PO Every 8 hours 16 04October 18, 2023 12:00am Start: 09-25-2014 take 1 tablet by stefany four times daily as needed for pain [...] Take 1 tablet by stefany once daily. mounjaro 2.5 mg/0.5ml solution pen-injector (5 sources) Start: 07-06-2023 Mounjaro 2.5 MG/0.5ML as directed Subcutaneous Jun, Active Multiple Vitamins Tab (1 source) Start: 09-25-2014 take 1 tablet by mouth once daily Multiple Vitamins Tab 1 tab(s), Oral, Daily, Refill(s) 0, Prophylaxis Start Date: 09/25/14 Status: Ordered Multivitamin preparation (3 sources) Start: 09-03-2020 take 1 tablet by mouth once daily Multivitamin Active 1 TAB PO Daily September 03, 2020 12:00am Start: 09-03-2020 take 1 tablet by [facility] once daily Multivitamin Active 1 TAB PO Daily September 02, 2020 11:00pm phentermine hydrochloride 37.5 mg oral tablet (20 sources) Sympathomimetic Amine Anorectic Start: 02-15-2024 take 1 tablet by mouth once daily 30 minutes after breakfast Phentermine (Adipex-P) 37.5 mg tablet Active 37.5 MG PO Daily February 15, 2024 12:00am must administer 30 minutes before or 1-2 hours after breakfast Start: 12-15-2022 take 1 tablet by [facility] once daily before breakfast Adipex-P 37.5 MG 1 tablet before breakfast Orally Once a day for 30 days Jun, Active Start: 10-16-2022 take 1 tablet by [facility] once daily before breakfast Adipex-P 37.5 MG 1 tablet before breakfast Orally Once a day for 30 days October, Active tiZANidine 4 mg oral tablet (20 sources) [...] 2:08pm take 1/2 to 1 tablet at [facility] as needed for pain Start: 11-23-2022 tiZANidine (ZA NAFLEX) 4 mg tablet Take [...] Start: 02-21-2023 take 2 tablets by mo uth twice daily valACYclovir HCl 1 GM 2 [...] mg / clavulanate 125 mg oral tablet (2 sources) Penicillin-class Antibacterial Start: 10-18-2023 End: 11-09-2023 take [...] mcg busPIRone hydrochloride 7.5 mg oral tablet (10 sources) Start: 09-03-2020 End: 11-09-2023 take 7.5 mg by mouth once daily Buspirone Discontinued 7.5 MG PO Daily September 03, 2020 12:00am November 09, 2023 2:23pm take 1 tablet by stefany th every twelve hours busPIRone HCl 7.5 MG 1 tablet Orally Twi ce a day Active Calcium Carbonate-Vitamin D2 (3 sources) Start: 09-03-2020 End: 11-09-2023 take 1 tablet by mouth once daily Calcium Carbonate-Vitamin D2 Discontinued 1 TAB PO Daily September 03, 2020 12:00am November 09, 2023 2:23pm Start: 09-03-2020 take 1 tablet by stefany th once daily Calcium Carbonate-Vitamin D2 Active 1 [...] for 5 days Not-Taking/PRN polyethylene glycol 3350 98503 mg powder for oral solution (1 source) Osmotic Laxative polyethylene gl ycol 3350 (MIRALAX) 17 gram/dose powder Take 17 g by mouth once daily. Dissolve dose in 4 - 8 ounces of liquid and take as directed. 0 Active Comment on above: Take 17 g by mouth o nce daily. Dissolve dose in 4 - 8 ounces of liquid and take as directed. Tirzepatide (2 sources) Start: 11-09-2023 End: 02-15-2024 Tirzepatide (Mounjaro) 2.5 mg/0.5 mL pen injector Discontinued 2.5 MG SUBCUT As Directed November 09, 2023 12:00am February 15, 2024 11:55am Start: 11-09-2023 Tirzepatide (M ounjaro) 2.5 mg/0.5 mL pen injector Active 2.5 MG SUBCUT As Directed November 09, 2023 12:00am Problems Active Problems Problem Classification Problem Date [...] density and structure, left thigh Episodic Other bone disease and musculoskeletal deformities (1 source) Other specified disorders of bone density and structure, unspecified site; Translations: [Disorder of bone and cartilage, unspecified] 02-15-2024 Episodic Other circulatory disease (1 source) Orthostatic [...] Episodic Other nutritional; endocrine; and metabolic disorders (9 sources) Overweight; Translations: [Overweight] Onset: 2 Episodic Other nutritional; endocrine; and metabolic disorders (12 sources) Body mass index 25-29 - overweight; Translations: [Body mass index (BMI) 28.0-28.9, adult] Episodic Other screening for suspected conditions (not mental disorders or infectious disease) (17 sources) Patient encounter status; Translations: [Encounter for [...] Test Name Value Interpretation Reference Range Facility Laboratory - Chemistry and C hemistry - challengeon 01-29-2024 TSH Qn 2.767 m[IU]/L 0.358-3.740 [facility] MICHAEL w/Reflex if POSon 2022 Nuclear Ab Ql (S) Negative Invalid Interpretation Code Negative [facility] Comment on above: Result Comment: Perf ormed at: [facility] [address] [id number] PhD Maya Brown Performed By: #### 1 [id number] #### [facility] [address] [place] [address] RF Quanton 03-09-2023 Rheumatoid factor Qn [IU]/mL Invalid Interpretation Code <14.0 [facility] Comment on above: Result Comment: Perf ormed at: [facility] [address] [id number] PhD Maya Brown Performed By: #### 1 [id number] #### [facility] [address] [place] [address] CHEMISTRYOrdered By: SYSTEM SYSTEM on 03-07-2023 CRP [Mass/Vol] 0.8 mg/dL Normal <=1.9mg/dL [facility] Remis ol CRPon 03-07-2023 CRP [Mass/Vol] 0.8 mg/dL Normal <=1.9 [facility] Comment on above: Performed By: #### 1 [id number], [id number] #### [facility] [address] [place] [address] Consent for Treatmenton 02-17 Consent for Treatment [id number] 0CD:127 Normal [facility] HEMATOLOGYOrdered By: Keisha Fernandez on 03-07-2023 Sed Rate Automated 12 mm/h Normal 0 - 34 mm/hr [facility] HemeAutoSS Physician Orderon 03-07-2023 Physician Order [id number]. 00CD:127 Normal [facility] Sed Rate Automatedon 023 Sed Rate Automated 12 mm/hr Normal 0-34 [facility] Comment on above: Performed By: #### 1 [id number], [id number] #### [facility] [address] [place] [address] HISTORY PHYSICALon 3 HISTORY PHYSICAL HNO ID: [id number] Author: Santiago Evans MD, PhD Service: ? Author Type: Physician Type: HANDP Filed: 02/12/2023 11:00 PM Note Text: [facility] [place] January 19, 2023 Claire Rocha Requesting Physician: [...] and a (more content not included)... Normal [facility] CNOVon 01-19-2023 CNOV Office Visit (NEADMN ) CLAIRE ROCHA ([id number]) 1970 F Date Time Provider Department 01/19/23 9:00 AM SANTIAGO EVANS During your visit today, we recorded the following information about you: Pulse Blood pressure Weight Height 90/minute 128/77 73.9 kg 1.6 m Santiago Evans MD, PhD 02/12/2023 11:00 PM Signed [facility] [place] January 19, 2023 Claire Rocha Requesting Physician: [...] central sen (more content not included)... Normal [facility] T3, TOTAL (TRIIODOTHYRONINE) on 09-29-2022 T3, TOTAL 108 ng/dL Normal 71-180 [facility] Comment on above: Performed By: #### T 3TOTAL #### [facility] [address] [address] [address] Gigi Campos FREE T4on 09-28-2022 Free T4 [Mass/Vol] 1.06 ng/dL Normal 0.76-1.46 [facility] Comment on above: Performed By: #### F T4 #### [facility] [id number] Gigi Campos TSHon 09-28-2022 TSH 2.591 uIU/mL Normal 0.358-3.740 [facility] Comment on above: Performed By: #### T SH #### [facility] [address] [address] [address] Gigi Campos Quick Strepon 09-10-2022 S. pyogenes Org specific cx Ql (Throat) Negative [facility] [employer] Other Quick Strep [facility] [employer] Other XR hip BI w [id number] 06-05-20 XR hip BI w PEL1V [facility] [address] [place] [address] [place] [address] XRay Report Signed Patient: Claire Rocha MR#: [id number] : 1970 Acct:[id number] Age/Sex: 51 / F ADM Date: 06/05/22 Loc: [facility] Room: Type: [facility] Attending Dr: Louis Palafox DO Copies to: [...] Marce Echeverria M.D.06/05/2022 5:47 PM Dictation Location: [place] [address] Transcribed By: [facility] 06/05/221746 Dictated By: Marce Echeverria MD 06/05/221744 Signed By: 06/05/221746 Normal [facility] XR hip BI w PEL1V [facility] [employer] Other XR hip BI w PEL1V [facility] [place] [facility] [employer] Other XR hip BI w PEL1V [address] [facility] [employer] Other XR hip BI w PEL1V [address] [employer] Other XR hip BI w PEL1V XRay Report [employer] Other XR hip BI w PEL1V Signed [employer] Other XR hip BI w PEL1V Patient: David Rocha ra MR#: [id number] [employer] Other XR hip BI w PEL1V [address] [employer] Other XR hip BI w PEL1V : 1970 Acct:[id number] [employer] Other XR hip BI w PEL1V Age/Sex: 51 / F ADM Date: 06/05/22 [employer] Other XR hip BI w PEL1V [place] [facility] [place] Room: Type : [facility] [employer] Other XR hip BI w PEL1V Attending Dr: Louis Palafox DO [employer] Other XR hip BI w PEL1V Copies to: Louis Palafox DO [employer] Other XR hip BI w PEL1V Ordering Provider: Louis Palafox DO [employer] Other XR hip BI w PEL1V Date of Service: 06/05/22 [employer] Other XR hip BI w PEL1V XR/XR hip BI w PEL1V: Pain in right hip;Pain in left hip [employer] Other XR hip BI w PEL1V PELVIS WITH BILATERA L HIPS -3 images [employer] Other XR hip BI w PEL1V CLINICAL HISTORY: Bilateral hip and groin pain, greater on the right. No injury. [employer] Other XR hip BI w PEL1V COMPARISON: 07/27/2020 left hip [employer] Other XR hip BI w PEL1V AP view of the pelvi s frog-lateral views of both hips were obtained. No fracture, dislocation or [employer] Other XR hip BI w PEL1V bony destruction is seen. The hip joint spaces are symmetric. There is no significant arthritic [employer] Other XR hip BI w PEL1V change. The soft tissues are unremarkable. [employer] Other XR hip BI w PEL1V XR/XR hip BI w PEL1V [employer] Other XR hip BI w PEL1V IMPRESSION: [employer] Other XR hip BI w PEL1V NO ACUTE PLAIN FILM FINDINGS. [employer] Other XR hip BI w PEL1V Impression dictated by: Marce Echeverria M.D.06/05/2022 5:47 PM [employer] Other XR hip BI w PEL1V Dictation Location: [place] [address] [employer] Other XR hip BI w PEL1V Transcribed By: PWS 06/05/22 1747 [employer] Other XR hip BI w PEL1V Dictated By: Marce Echeverria MD 06/05/22 1745 [employer] Other XR hip BI w PEL1V Signed By: [employer] Other XR hip BI w PEL1V 06/05/22 1747 [facility] [employer] Other TSHon 04-29-2022 TSH 0.320 uIU/mL Critically low 0.358-3.740 [facility] Comment on above: Performed By: #### T #### [facility] [address] [place] [address] Dr. Gigi Campos SCREENING MAMMOGRAM W/MIYA, BILATERAL*on [...] VERY IMPORTANT TO YOUR HEALTH. THE CURRENT [employer] GUIDELINES RECOMMEND ANNUAL MAMMOGRAPHY BEGINNING AT AGE 40. THIS FACILITY UTILIZES A REMINDER SYSTEM TO ENSURE ALL PATIENTS RECEIVE A REMINDER NOTIFICATION AT THE APPROPRIATE TIME BASED ON THE RECOMMENDATIONS OF THIS EXAM. BOARD CERTIFIED RADIOLOGIST. ACCREDITED BY THE [facility] AND FDA. Report reported and signed by Flakita Gan on 01/23/2022 1309 Normal [facility] [employer] XR KUB 1 VIEWon 01-05-2022 XR KUB [...] NORY DAVILA Date: 2022-01-05 16:27 Normal [facility] CBC AUTO DIFFon 11-22-2021 BASO # 0.1 103/ul Normal 0.0-0.1 [facility] Comment on above: Performed By: #### C BC #### [facility] [address] [place] [address] Dr. Gigi Campos Basophils/100 WBC (Bld) 1.0 % Normal 0.2-2.0 [facility] Comment on above: Performed By: #### C BC #### [facility] [address] [address] [address] Gigi Campos EO # 0.2 103/ul Normal 0.0-0.7 [facility] Comment on above: Performed By: #### C BC #### [facility] [address] [place] [address] Dr. Gigi Campos Eosinophils/100 WBC (Bld) 3.8 % Normal 0.9-7.0 [facility] Comment on above: Performed By: #### C BC #### [facility] [address] [place] [address] Dr. Gigi Campos Erythrocyte distribution width (RBC) [Ratio] 12.1 % Normal 11.0-15.0 [facility] Comment on above: Performed By: #### C BC #### [facility] [address] [place] [address] Dr. Gigi Campos Hematocrit (Bld) [Volume fraction] 43.0 % Normal 36.0-48.0 [facility] Comment on above: Performed By: #### C BC #### [facility] [address] [place] [address] Dr. Gigi Campos Hemoglobin (Bld) [Mass/Vol] 14.2 g/dL Normal 12.0-16.0 [facility] Comment on above: Performed By: #### C BC #### [facility] [address] [place] [address] Dr. Gigi Campos IG # 0.00 10e3/ul Normal 0.00-0.03 [facility] Comment on above: Performed By: #### C BC #### [facility] [address] [place] [address] Dr. Gigi Campos IG % 0.0 % Normal 0.0-0.5 [facility] Comment on above: Performed By: #### C BC #### [facility] [address] [place] [address] Dr. Gigi Campos LYMPH # 1.9 103/ul Normal 1.2-3.8 [facility] Comment on above: Performed By: #### C BC #### [facility] [address] [place] [address] Dr. Gigi Campos Lymphocytes/100 WBC (Bld) 35.7 % Normal 20.5-60.0 [facility] Comment on above: Performed By: #### C BC #### [facility] [address] [place] [address] Dr. Gigi Campos MANUAL DIFF REQ NO Normal [facility] Comment on above: Performed By: #### C BC #### [facility] [address] [address] [address] Gigi Campos MCH (RBC) [Entitic mass] 30.4 pg Normal 26.7-34.0 [facility] Comment on above: Performed By: #### C BC #### [facility] [address] [address] [address] Gigi Campos MCHC (RBC) [Mass/Vol] 33.0 g/dL Normal 29.9-35.2 [facility] Comment on above: Performed By: #### C BC #### [facility] [address] [place] [address] Dr. Gigi Campos MCV (RBC) [Entitic vol] 92.1 fL Normal 81.0-99.0 [facility] Comment on above: Performed By: #### C BC #### [facility] [address] [place] [address] Dr. Gigi Campos MONO # 0.4 103/ul Normal 0.3-0.8 [facility] Comment on above: Performed By: #### C BC #### [facility] [address] [place] [address] Dr. Gigi Campos Monocytes/100 WBC (Bld) 6.8 % Normal 1.7-12.0 [facility] Comment on above: Performed By: #### C BC #### [facility] [address] [place] [address] Dr. Gigi Campos NEUT # 2.8 103/ul Normal 1.4-6.5 [facility] Comment on above: Performed By: #### C BC #### [facility] [address] [place] [address] Dr. Gigi Campos Neutrophils/100 WBC (Bld) 52.7 % Normal 43.0-75.0 [facility] Comment on above: Performed By: #### C BC #### [facility] [address] [place] [address] Dr. Gigi Campos Platelet mean volume (Bld) [Entitic vol] 8.9 fL Critically low 9.5-13.5 [facility] Comment on above: Performed By: #### C BC #### [facility] [address] [address] [address] Gigi Campos PLT 281 103/ul Normal 150-450 [facility] Comment on above: Performed By: #### C BC #### [facility] [address] [place] [address] Dr. Gigi Campos RBC 4.67 106/ul Normal 4.20-5.40 [facility] Comment on above: Performed By: #### C BC #### [facility] [address] [place] [address] Dr. Gigi Campos WBC 5.3 103/ul Normal 4.0-11.0 [facility] Comment on above: Performed By: #### C BC #### [facility] [address] [place] [address] Dr. Gigi Campos LIPID PROFILEon 11-22-2021 CHOL-HDL RATIO NORM SEE BELOW Normal [facility] Comment on above: Result Comment: 3.3 - 4.4 LOW RISK 4.4 - 7.1 AVERAGE RISK 7.1 - 11.0 MODERATE RISK >11.0 HIGH RISK Performed By: #### T SH, CMP, LIPID #### [facility] [address] [place] [address] Dr. Gigi Campos Cholesterol [Mass/Vol] 222 mg/dL Critically high <=200 [facility] Comment on above: Performed By: #### T SH, CMP, LIPID #### [facility] [address] [place] [address] Dr. Gigi Campos Cholesterol in HDL [Mass/Vol] 60 mg/dL Normal 40-60 [facility] Comment on above: Performed By: #### T SH, CMP, LIPID #### [facility] [address] [place] [address] Dr. Gigi Campos Cholesterol in LDL [Mass/Vol] 148.2 mg/dL Normal [facility] Comment on above: Performed By: #### T SH, CMP, LIPID #### [facility] [address] [place] [address] Dr. Gigi Campos Cholesterol.total/Ch olesterol in HDL [Mass ratio] 3.7 {ratio} Normal [facility] Comment on above: Performed By: #### T SH, CMP, LIPID #### [facility] [address] [place] [address] Dr. Gigi Campos HDL NORMAL > or = 60 mg/dl - LO W CARDIOVASCULAR RISK <40 mg/dl - HIGH CARDIOVASCULAR RISK Normal [facility] Comment on above: Performed By: #### T SH, CMP, LIPID #### [facility] [address] [place] [address] Dr. Gigi Campos LDL CALC NORMAL SEE BELOW Normal [facility] Comment on above: Result Comment: <100 mg/dl OPTIMAL 100 - 129 mg/dl NEAR OR ABOVE OPTIMAL 130 - 159 mg/dl BORDERLINE HIGH 160 - 189 mg/dl HIGH >190 mg/dl VERY HIGH Performed By: #### T SH, CMP, LIPID #### [facility] [address] [place] [address] Dr. Gigi Campos Triglyceride [Mass/Vol] 69 mg/dL Normal <=150 [facility] Comment on above: Performed By: #### T SH, CMP, LIPID #### [facility] [address] [place] [address] Dr. iGgi Campos VLDL CALC 13.8 mg/dL Normal [facility] Comment on above: Performed By: #### T SH, CMP, LIPID #### [facility] [address] [place] [address] Dr. Gigi Campos PROF 14(COMP METB)on 022 Albumin [Mass/Vol] 3.8 g/dL Normal 3.4-5.0 [facility] Comment on above: Performed By: #### T SH, CMP, LIPID #### [facility] [address] [place] [address] Dr. Gigi Campos Albumin/Globulin [Mass ratio] 1.2 {ratio} Normal [facility] Comment on above: Performed By: #### T SH, CMP, LIPID #### [facility] [address] [place] [address] Dr. Gigi Campos ALP [Catalytic activity/Vol] 61 U/L Normal 46-116 [facility] Comment on above: Performed By: #### T SH, CMP, LIPID #### [facility] [address] [address] [address] Gigi Campos ALT [Catalytic activity/Vol] 21 U/L Normal 14-59 [facility] Comment on above: Performed By: #### T SH, CMP, LIPID #### [facility] [address] [address] [address] Gigi Campos Anion gap [Moles/Vol] 10.6 mmol/L Normal [facility] Comment on above: Performed By: #### T SH, CMP, LIPID #### [facility] [address] [place] [address] Dr. Gigi Campos AST [Catalytic activity/Vol] 19 U/L Normal 15-37 [facility] Comment on above: Performed By: #### T SH, CMP, LIPID #### [facility] [address] [place] [address] Dr. Gigi Campos Bilirubin [Mass/Vol] 0.4 mg/dL Normal 0.2-1.0 [facility] Comment on above: Performed By: #### T SH, CMP, LIPID #### [facility] [address] [place] [address] Dr. Gigi Campos Calcium [Mass/Vol] 9.1 mg/dL Normal 8.5-10.1 [facility] Comment on above: Performed By: #### T SH, CMP, LIPID #### [facility] [address] [place] [address] Dr. Gigi Campos Chloride [Moles/Vol] 106 mmol/L Normal 98-107 [facility] Comment on above: Performed By: #### T SH, CMP, LIPID #### [facility] [address] [place] [address] Dr. Gigi Campos CO2 [Moles/Vol] 29.9 mmol/L Normal 21.0-32.0 [facility] Comment on above: Performed By: #### T SH, CMP, LIPID #### [facility] [address] [place], [place] [id number] Dr. Gigi Campos Creatinine [Mass/Vol] 0.79 mg/dL Normal 0.55-1.02 [facility] Comment on above: Performed By: #### T SH, CMP, LIPID #### [facility] [address] [place] [address] Dr. Gigi Campos EGFR-AF BURMESE >60 Normal >=60 [facility] Comment on above: Performed By: #### T SH, CMP, LIPID #### [facility] [address] [address] [address] Gigi Campos EGFR-NON AF BURMESE >60 Normal >=60 [facility] Comment on above: Performed By: #### T SH, CMP, LIPID #### [facility] [address] [address] [address] Gigi Campos Globulin (S) [Mass/Vol] 3.3 g/dL Normal [facility] Comment on above: Performed By: #### T SH, CMP, LIPID #### [facility] [address] [place] [address] Dr. Gigi Campos Glucose [Mass/Vol] 92 mg/dL Normal 74-106 [facility] Comment on above: Performed By: #### T SH, CMP, LIPID #### [facility] [address] [place] [address] Dr. Gigi Campos Potassium [Moles/Vol] 4.5 mmol/L Normal 3.5-5.1 [facility] Comment on above: Performed By: #### T SH, CMP, LIPID #### [facility] [address] [place] [address] Dr. Gigi Campos Protein [Mass/Vol] 7.1 g/dL Normal 6.4-8.2 [facility] Comment on above: Performed By: #### T SH, CMP, LIPID #### [facility] [address] [place] [address] Dr. Gigi Campos Sodium [Moles/Vol] 142 mmol/L Normal 136-145 [facility] Comment on above: Performed By: #### T SH, CMP, LIPID #### [facility] [address] [place] [address] Dr. Gigi Campos Urea nitrogen [Mass/Vol] 25.0 mg/dL Critically high 7.0-18.0 [facility] Comment on above: Performed By: #### T YANELY CMP, LIPID #### [facility] [address] [place] [address] Dr. Gigi Campos Urea nitrogen/Creatinine [Mass ratio] 31.6 mg/mg Normal [facility] Comment on above: Performed By: #### T YANELY, CMP, LIPID #### [facility] [address] [place] [address] Dr. Gigi Campos TSHon 11-22-2021 TSH 6.390 uIU/mL Critically high 0.358-3.740 [facility] Comment on above: Performed By: #### T YANELY CMP, LIPID #### [facility] [address] [place] [address] Dr. Gigi Campos TSH RANGE SEE BELOW Normal [facility] Comment on above: Result Comment: <0.3 4 UIU/ml HYPERTHYROID 0.34-5.60 UIU/ml EUTHYROID >5.60 UIU/ml HYPOTHYROID Performed By: #### T YANELY CMP, LIPID #### [facility] [address] [place] [address] Dr. Gigi Campos VITAMIN D 25 OHon 11-22-2021 VIT D 25-OH 37.0 ng/mL Normal [facility] Comment on above: Performed By: #### V ITAD #### [facility] [address] [place] [address] Dr. Gigi Campos VIT D RANGES SEE BELOW Normal [facility] Comment on above: Result Comment: <20 ng/mL Vit D deficient 20 - <30 ng/mL Vit D insufficient 30 - 100 ng/mL Vit D sufficient >100 ng/mL Potential Toxicity Performed By: #### V ITAD #### [facility] [address] [place] [address] Dr. Gigi Campos Vital Signs Date Time Vital Sign Value Performing Clinician Facility 02-15-2024 11:36-0400 Body height 161.29 cm [facility] 02-15-2024 11:36-0400 Body mass index (BMI) [Ratio] 29.6 kg/m2 [facility] 02-15-2024 11:36-0400 Body weight 77.11 kg [facility] 02-15-2024 11:36-0400 Diastolic blood pressure 71 mm[Hg] [facility] 02-15-2024 11:36-0400 Heart rate 73 /min [facility] 02-15-2024 11:36-0400 Respiratory rate 12 /min [facility] 02-15-2024 11:36-0400 Systolic blood pressure 106 mm[Hg] [facility] 11-26-2023 15:01-0400 Body height 161.29 cm [facility] 11-26-2023 15:01-0400 Body mass index (BMI) [Ratio] 29.6 kg/m2 [facility] 11-26-2023 15:01-0400 Body weight 77.16 kg [facility] 11-26-2023 15:01-0400 Diastolic blood pressure 75 mm[Hg] [facility] 11-26-2023 15:01-0400 Heart rate 77 /min [facility] 11-26-2023 15:01-0400 Respiratory rate 12 /min [facility] 11-26-2023 15:01-0400 Systolic blood pressure 108 mm[Hg] [facility] 10-18-2023 13:49-0400 Body height 161.29 cm [facility] 10-18-2023 13:49-0400 Body mass index (BMI) [Ratio] 28.2 kg/m2 [facility] 10-18-2023 13:49-0400 Body temperature 97.9 [degF] [facility] 10-18-2023 13:49-0400 Body weight 73.48 kg [facility] 10-18-2023 13:49-0400 Diastolic blood pressure 76 mm[Hg] [facility] 10-18-2023 13:49-0400 Heart rate 90 /min [facility] 10-18-2023 13:49-0400 Systolic blood pressure 126 mm[Hg] [facility] 07-06-2023 10:30-0500 Body height 161.29 cm Wagner Ball Other [facility] 07-06-2023 10:30-0500 Body mass index (BMI) [Ratio] 30.34 kg/m2 Wagner Ball Other [facility] 07-06-2023 10:30-0500 Body weight 78.93 kg Wagner Ball Other [facility] 07-06-2023 10:30-0500 Diastolic blood pressure 78 mm[Hg] Wagner Ball Other [facility] 07-06-2023 10:30-0500 Respiratory rate 12 /min Wagner Ball Other [facility] 07-06-2023 10:30-0500 Systolic blood pressure 121 mm[Hg] Wagner Ball Other [facility] 04-23-2023 16:00-0500 Body height 161.29 cm Wagner Ball Other [facility] 04-23-2023 16:00-0500 Body mass index (BMI) [Ratio] 29.12 kg/m2 Wagner Ball Other [facility] 04-23-2023 16:00-0500 Body weight 75.75 kg Wagner Ball Other [facility] 01-26-2023 11:00-0400 Body height 161.29 cm Wagner Ball Other [facility] 01-26-2023 11:00-0400 Body mass index (BMI) [Ratio] 29.22 kg/m2 Wagner Ball Other [facility] 01-26-2023 11:00-0400 Body weight 76.02 kg Wagner Ball Other [facility] 01-26-2023 11:00-0400 Diastolic blood pressure 65 mm[Hg] Wagner Ball Other [facility] 01-26-2023 11:00-0400 Respiratory rate 12 /min Wagner Ball Other [facility] 01-26-2023 11:00-0400 Systolic blood pressure 101 mm[Hg] Wagner Ball Other [facility] 01-19-2023 08:53-0400 Body height 160 cm Santiago Evans MD, PhD Work Phone: [facility] 01-19-2023 08:53-0400 Body weight 73.94 kg Santiago Evans MD, PhD Work Phone: [facility] 01-19-2023 08:53-0400 Diastolic blood pressure 77 mm[Hg] Santiago Evans MD, PhD Work Phone: [facility] 01-19-2023 08:53-0400 Heart rate 90 /min Santiago Evans MD, PhD Work Phone: [facility] 01-19-2023 08:53-0400 SaO2% (BldA) [Mass fraction] 100 % Santiago Evans MD, PhD Work Phone: [facility] 01-19-2023 08:53-0400 Systolic blood pressure 128 mm[Hg] Santiago Evans MD, PhD Work Phone: [facility] 12-15-2022 12:00-0400 Body height 161.29 cm Wagner Ball Other [facility] 12-15-2022 12:00-0400 Body mass index (BMI) [Ratio] 27.9 kg/m2 Wagner Ball Other [facility] 12-15-2022 12:00-0400 Body weight 72.58 kg Wagner Ball Other [facility] 12-15-2022 12:00-0400 Diastolic blood pressure 85 mm[Hg] Wagner Ball Other [facility] 12-15-2022 12:00-0400 Systolic blood pressure 115 mm[Hg] Wagner Ball Other [facility] 10-16-2022 16:15-0400 Body height 161.29 cm Wagner Ball Other [facility] 10-16-2022 16:15-0400 Body mass index (BMI) [Ratio] 29.69 kg/m2 Wagner Ball Other [facility] 10-16-2022 16:15-0400 Body weight 77.25 kg Wagner Ball Other [facility] 10-16-2022 16:15-0400 Diastolic blood pressure 82 mm[Hg] Wagner Ball Other [facility] 10-16-2022 16:15-0400 SaO2% (BldA) [Mass fraction] 97 % Wagner Ball Other [facility] 10-16-2022 16:15-0400 Systolic blood pressure 115 mm[Hg] Wagner Ball Other [facility] 09-10-2022 10:15-0400 Body height 161.29 cm Yara Mahajan Other [facility] 09-10-2022 10:15-0400 Body mass index (BMI) [Ratio] 29.12 kg/m2 Yara Mahajan Other [facility] 09-10-2022 10:15-0400 Body temperature 98.3 [degF] Yara Mahajan Other [facility] 09-10-2022 10:15-0400 Body weight 75.75 kg Yara Mahajan Other [facility] 09-10-2022 10:15-0400 Diastolic blood pressure 66 mm[Hg] Yara Mahajan Other [facility] 09-10-2022 10:15-0400 Respiratory rate 16 /min Yara Mahajan Other [facility] 09-10-2022 10:15-0400 SaO2% (BldA) [Mass fraction] 97 % Yara Mahajan Other [facility] 09-10-2022 10:15-0400 Systolic blood pressure 111 mm[Hg] Yara Mahajan Other [facility] 08-21-2022 14:30-0500 Body height 161.29 cm Wagner Ball Other [facility] 08-21-2022 14:30-0500 Body mass index (BMI) [Ratio] 29.29 kg/m2 Wagner Ball Other [facility] 08-21-2022 14:30-0500 Body weight 76.2 kg Wagner Ball Other [facility] 08-21-2022 14:30-0500 Diastolic blood pressure 76 mm[Hg] Wagner Jade Other [facility] 08-21-2022 14:30-0500 Respiratory rate 12 /min Wagner Jade Other [facility] 08-21-2022 14:30-0500 Systolic blood pressure 118 mm[Hg] Wagner Jade Other [facility] 06-05-2022 15:00-0500 Body height 161.29 cm Louis Vivienne Other [facility] 06-05-2022 15:00-0500 Body mass index (BMI) [Ratio] 28.42 kg/m2 Louis Vivienne Other [facility] 06-05-2022 15:00-0500 Body weight 73.94 kg Louis Vivienne Other [facility] Other Encounters Encounter Date Encounter Type Care Provider Facility Start: 02-15-2024 End: 02-15-2024 ambulatory [facility] Work Phone: Start: 02-15-2024 End: 02-15-2024 Encounter for general adult medical examination without abnormal findings [facility] Start: 02-15-2024 End: 02-15-2024 Patient encounter procedure [facility] [employer] Work Phone: Start: 02-13-[address] [facility] Start: 01-29-2024 Non-patient / Non-visit [facility] [employer] Work Phone: Start: 11-26-2023 End: 11-26-2023 ambulatory [facility] Work Phone: Start: 11-26-2023 End: 11-26-2023 Patient encounter procedure [facility] Work Phone: Start: 10-18-2023 End: 10-18-2023 Patient encounter procedure [facility] Work Phone: Start: 09-03-2023 Non-patient / Non-visit [facility] Work Phone: Start: 07-30-2023 End: 07-30-2023 ambulatory Wagner Jade Other [facility] Start: 07-30-2023 Telephone encounter Wagner WITT [facility] Start: 07-09-2023 End: 07-09-2023 ambulatory Wagner Jade Other [facility] Start: 07-09-2023 Telephone encounter Wagner WITT [facility] Start: 07-06-2023 End: 07-06-2023 ambulatory Wagner Jade Other [facility] Start: 07-06-2023 Office outpatient vi sit 15 minutes Wagner Jade [facility] Start: 07-06-2023 Telephone encounter Wagner WITT [facility] Start: 04-23-2023 End: 04-23-2023 ambulatory Wagner Jade Other [facility] Start: 04-23-2023 Office outpatient vi sit 15 minutes Wagner Jade [facility] Start: 04-09-2023 End: 04-09-2023 ambulatory Wagner Jade Other [facility] Start: 04-09-2023 Nursing evaluation o f patient and report Wagner Jade [facility] Start: 03-07-2023 End: 03-08-2023 ambulatory Jazmine Rey Facility:[facility] Start: 03-07-2023 End: 03-07-2023 Patient encounter procedure Jazmine Rey [facility] Start: 02-21-2023 End: 02-21-2023 ambulatory Wagner Jade Other [facility] Start: 02-21-2023 Telephone encounter Wagner WITT [facility] Start: 02-02-2023 End: 02-02-2023 ambulatory Wagner Jade Other [facility] Other Start: 02-02-2023 Telephone encounter Wagner WITT [facility] Start: 01-31-2023 End: 01-31-2023 ambulatory Wagner Jade Other [facility] Other Start: 01-31-2023 Telephone encounter Wagner WITT [facility] Start: 01-29-2023 End: 01-29-2023 ambulatory Wagner Jade Other [facility] Other Start: 01-29-2023 Telephone encounter Wagner WITT [facility] Start: 01-26-2023 End: 01-26-2023 ambulatory Wagner Jade Other [facility] Other Start: 01-26-2023 Encounter for genera l adult medical examination without abnormal findings Wagner Jade [facility] Start: 01-26-2023 Periodic preventive med est patient 40-64yrs Wagner Jade [facility] Start: 01-19-2023 End: 01-19-2023 ambulatory SANTIAGO EVANS Facility:[facility] Start: 01-19-2023 End: 01-19-2023 Patient encounter procedure Santiago Evans MD, PhD Work Phone: Neurology Comment on above: Pain in both lower e xtremities (Primary Dx); Cold hands and feet without peripheral vascular disease; Orthostatic hypotension; Small fiber neuropathy; Neuropathic pain Start: 12-18-2022 End: 12-18-2022 ambulatory Louis Palafox Other [facility] Other Start: 12-18-2022 Telephone encounter Louis WITT [facility] Start: 12-15-2022 End: 12-15-2022 ambulatory Wagner Kalie Other [facility] Other Start: 12-15-2022 Office outpatient vi sit 15 minutes Wagner Ball [facility] Start: 10-16-2022 End: 10-16-2022 ambulatory Wagner Ball Other [facility] Start: 10-16-2022 Office outpatient vi sit 15 minutes Wagner Ball [facility] Start: 09-28-2022 End: 09-29-[address] WAGNER JADE Facility: Start: 09-26-2022 End: 09-26-2022 ambulatory Wagner Jade Other [facility] Start: 09-26-2022 Telephone encounter Wagner WITT [facility] Start: 09-12-2022 End: 09-12-2022 ambulatory Wagner Jade Other [facility] Other Start: 09-12-2022 Telephone encounter Wagner WITT [facility] Start: 09-11-2022 End: 09-11-2022 ambulatory Wagner Jade Other [facility] Other Start: 09-11-2022 Office outpatient vi sit 15 minutes Wagner Ball [facility] Start: 09-10-2022 End: 09-10-2022 ambulatory Yara Mahajan Other [facility] Other Start: 09-10-2022 Office outpatient vi sit 25 minutes Yara Mahajan [facility] Start: 09-04-2022 End: 09-04-2022 ambulatory Wagner Jade Other [facility] Other Start: 09-04-2022 Telephone encounter [facility] Jade [facility] Start: 08-22-2022 End: 08-22-2022 ambulatory Wagner Kalie Other [facility] Other Start: 08-22-2022 Telephone encounter Wagner Jade [facility] Start: 08-21-2022 End: 08-21-2022 ambulatory Wagner Jade Other [facility] Other Start: 08-21-2022 Office outpatient vi sit 25 minutes Wagner Jade [facility] Start: 08-11-2022 End: 08-11-2022 ambulatory Wagner Jade Other [facility] Other Start: 08-11-2022 Telephone encounter Wagner Jade [facility] Start: 07-03-2022 End: 07-03-2022 ambulatory Louis Palafox Other [facility] Other Start: 07-03-2022 Telephone encounter Louis WITT [facility] Start: 06-05-2022 End: 06-05-2022 ambulatory Louis Palafox Facility:[facility] Start: 06-05-2022 Office outpatient ne w 30 minutes Louis Palafox [facility] Start: 06-05-2022 End: 06-05-2022 ambulatory DO Wagner Jade Work Phone: [facility] Work Phone: Start: 06-05-2022 End: 06-05-2022 Patient encounter procedure DO Wagner Jade Work Phone: [facility] Start: 04-29-2022 End: 04-30-[address] WAGNER JADE Facility:[facility] Start: 01-05-2022 End: 01-06-[address] WAGNER JADE Facility:[facility] Start: 11-22-2021 End: 11-23-[address] WAGNER JADE Facility:[facility] Start: 11-21-2021 Adult health examination Wagner Jade Other [facility] Other Start: 09-03-2018 Patient encounter procedure REID FAY [facility] Procedures Date Procedure Procedure Detail Performing [...] Author Start: 02-16-2023 Influenza vaccination INFLUENZA (#1) [facility] Start: 06-18-2022 DEPRESSION ASSESSMENT DEPRESSION ASS ESSMENT [facility] Start: 2020 SHINGRIX VACCINE (1 of 2) SHINGRIX VACCINE (1 of 2) [facility] Start: 2015 COLOGUARD (FIT-DNA) COLOGUARD (FIT-D NA) [facility] Start: 2015 Colonoscopy COLONOSCOPY [facility] Start: 2015 COLORECTAL CANCER SCREENING COLORECTAL CANCER SCREENING [facility] Start: [address] COLONOGRAPHY [facility] Start: 2015 DIABETES SCREEN DIABETES SCREEN [facility] Start: 2015 FECAL OCCULT BLOOD FECAL OCCULT BLOO D [facility] Start: 2015 LIPID SCREEN LIPID SCREEN [facility] Start: 2015 SIGMOIDOSCOPY SIGMOIDOSCOPY [facility] Start: 2010 Mammography MAMMOGRAM [facility] Start: 2000 HPV TESTING HPV TESTING [facility] Start: 1991 PAP TESTING PAP TESTING [facility] Start: 1989 Urine microalbumin profile DTAP,TDAP,TD (1 - Tdap) [facility] Start: 1988 HEPATITIS [facility] Start: 1988 HIV SCREENING HIV SCREENING [facility] Start: 1970 COVID-19 VACCINE (#1) COVID-19 VACCI NE (#1) [facility] Start: 1970 HEPATITIS B (1 of 3 - 3-dose series) HEPATITIS B (1 of 3 - 3-dose series) [facility] metabo lic 2000 panel - Serum or Plasma [facility] NEURO CARDIO AUTONOM IC REFLEX W/WO TILT NEURO CARDIO AUTONOMIC REFLEX W/WO TILT Procedures Routine Pain in both lower extremities Cold hands and feet without peripheral vascular disease Orthostatic hypotension Small fiber neuropathy Ordered: 01/19/2023 [facility] Work Phone: Comment on above: Ordered: 01/19/2023 NEURO QSART NEURO QSART Proc edures Routine Pain in both lower extremities Small fiber neuropathy Ordered: 01/19/2023 [facility] Work Phone: Comment on above: Ordered: 01/19/2023 XR Mandible LE 3 Views [facility] Payers Date Payer Category Payer Unknown [id number] 2022 Self-pay [id number] 1970 Unknown [id number] 2.16.84 [id number] 1970 Unknown [id number] 2.16.84 [id number] 1970 Unknown [id number] 2.16.84 [id number] 1970 Unknown [id number] 2.16.84 [id number] 1970 Unknown [id number] 2.16.8 [id number] 1959 Unknown [id number] 1959 Unknown [id number] Unknown [id number] 2.16.8 [id number] Social History Date Type Detail Facility Tobacco smoking stat us NHIS Unknown if ever smoked [facility] Work Phone: Start: 1970 Sex Assigned At Female F [facility] Start: 01-19-2023 Sex Assigned At F [facility] Start: 01-19-2023 End: 07-06-2023 Tobacco smoking status NHIS Never smoked tobacco [facility] Start: 01-19-2023 Tobacco use and exposure Smokeless tobacco non-user [facility] Start: 01-19-2023 Alcohol intake Ex-drinker (finding) [facility] Start: 01-19-2023 History of Social function [facility] Start: 01-18-2023 Gender identity Identifies as female gender (finding) [facility] Start: 01-18-2023 Sexual orientation Heterosexual (tyrese meredith) [facility] Tobacco smoking status Never [facility] Clinical Notes 01-23-2022 to 07-06-2023 Note Date [...] index [BMI] 30.0-30.9, adult (ICD-10 - Z68.30) [facility] 01-19-2024 Evaluation note* Encounter Date Diagnosis Assessment Notes Treatment Notes Treatment Clinical Notes Jun, Autoimmune thyroiditis (ICD-10 - E06.3) Jun, Other obesity due to excess calories (ICD-10 - E66.09) Jun, Body mass index [BMI] 30.0-30.9, adult (ICD-10 - Z68.30) [facility] 11-06-2023 Evaluation note* Encounter Date Diagnosis [...] weekly. Increases risk for of COVID complications. [facility] 10-23-2023 Evaluation note* Encounter Date Diagnosis Assessment Notes Treatment Notes Treatment Clinical Notes Mar, Vitamin B12 deficiency anemia due to intrinsic factor deficiency (ICD-10 - D51.0) [facility] 09-20-2023 Evaluation + Plan note Diagnostic Tests Pending * Rheumatoid Factor Quantitative 03/07/23 * MICHAEL w/Reflex if POS 03/07/23 [facility]09-06-2023 Evaluation note* Encounter Date Diagnosis Assessment Notes Treatment Notes Treatment Clinical Notes Feb, Herpesviral vesicular dermatitis (ICD-10 - B00.1) [facility] 08-16-2023 Evaluation note* Encounter Date Diagnosis Assessment Notes Treatment Notes Treatment Clinical Notes Jan, Autoimmune thyroiditis (ICD-10 - E06.3) [facility] 08-11-2023 Evaluation note* Encounter Date Diagnosis [...] diet, proper sleep routine. Referral to Neurology [facility] 08-04-2023 History and physical note* Santiago Evans MD, PhD - 01/19/2023 10:28 PM EDT [facility] Neurological [place] January 19, 2023 Claire Rocha Requesting Physician: No referring provider defined for this encounter. PCP: No primary care provider on file. My recommendations will be communicated with the requesting physician via mail or by means of shared electronic medical records. CC: ABY, lower extremity pain, T/N and weakness HPI: [...] blood work and lumbar MRI twice in 2019 and 2021 ALLERGIES: No Known Allergies Current [...] to finalize current assessment) [facility] Encounter Date Diagnosis Assessment Notes Treatment Notes Treatment Clinical Notes Nov, Overweight (ICD-10 - E66.3) This patient has been instructed on a low-fat, high-fiber diet. They are instructed to reduce calories, portion sizes and snacks. It is recommended that they exercise for 30 minutes, 3-5 times weekly. Nov, Autoimmune thyroiditis (ICD-10 - E06.3) Euthyroid, continue Levothyroxine [facility] 06-30-2023 Evaluation note* Encounter Date Diagnosis [...] move forward with treatment at this time. [facility] 05-01-2023 Evaluation note* Encounter Date Diagnosis [...] Euthyroid on recent testing Continue present treatment [facility] 04-11-2023 Evaluation note* Encounter Date Diagnosis Assessment Notes Treatment Notes Treatment Clinical Notes Sep, Autoimmune thyroiditis (ICD-10 - E06.3) [facility] 03-28-2023 Evaluation note* Encounter Date Diagnosis Assessment Notes Treatment Notes Treatment Clinical Notes Aug, Acute cough (ICD-10 - R05.1) [facility] 03-27-2023 Evaluation note* Encounter Date Diagnosis [...] for congestion, Tylenol for pain and fever. [facility] 03-26-2023 Evaluation note* Encounter Date Diagnosis [...] treatment plan. Patient left in stable condition [facility] 03-20-2023 Evaluation note* Encounter Date Diagnosis Assessment Notes Treatment Notes Treatment Clinical Notes Aug, Overweight (BMI 25.0-29.9) (ICD-10 - E66.3) [facility] 03-07-2023 Evaluation note* Encounter Date Diagnosis Assessment Notes Treatment Notes Treatment Clinical Notes Aug, Overweight (BMI 25.0-29.9) (ICD-10 - E66.3) [facility] 03-06-2023 Evaluation note* Encounter Date Diagnosis [...] and structure, left thigh (ICD-10 - M85.852) [facility] 02-24-2023 Evaluation note* Encounter Date Diagnosis Assessment Notes Treatment Notes Treatment Clinical Notes Jul, 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 Prior medical notes from Wagner kalie and history have been reviewed. At this [...] as documented in the electronic medical record. [facility] 08-08-2022 NoteHISTORY: Bone density screening. COMPARISON: [...] signed by Flakita Gan on 01/23/2022 0921[facility] SpecialistEvaluation noteNo assessment information [facility] Work Phone: Evaluation noteNo [facility] [employer] Other Evaluation note* Diagnosis Pain in both lower extremities- Primary Cold hands and feet without peripheral vascular disease Other symptoms involving skin and integumentary tissues Orthostatic hypotension Small fiber neuropathy Unspecified hereditary and idiopathic peripheral neuropathy Neuropathic pain Neuralgia, neuritis, and radiculitis, unspecified [facility] Diagnosis Onset Date Resolution Status DELFIN (generalized anxiety disorder) acute Hypothyroid acute Migraine headache acute Overweight acute [facility] Work Phone: Evaluation note* Diagnosis Onset Date Resolution Status DELFIN (generalized anxiety disorder) acute Migraine headache acute Overweight acute DELFIN (generalized anxiety disorder) acute Hypothyroid acute Osteopenia acute Overweight acute Screening mammogram for breast cancer acute Wellness examination [facility] Work Phone: History general Narrative - Reported* Type Description Date Medical History HYPOTHYROIDISM Medical History HASIMOTOS Medical History OSTEOPENIA Medical History MENOPAUSE Surgical History Surgical History SCOPING ENDREMETRIOSIS Surgical History SURGERY ON LEFT HAND Hospitalization History CHILD 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 Orthopedics has excluded spine and hip disorders as an etiology. Orthopedics referred her [facility] but she does not wish to return. I an referring her for lower extremity dysesthesias and chronic tension headaches. Clinical Notes Include labs from [facility] Other Summary Purpose Family History Relationship Condition Age at Onset Recorded Date/T papi father Myocardial infarction Unknown Relationship Condition Age at Onset Recorded Date/T papi father Myocardial infarction Unknown Not Specified Hypertension Unknown Relationship Condition Age at Onset Recorded Date/T papi father Myocardial infarction Unknown mother Hypertension Unknown Advance Directives Advance Directive Response Recorded Date/ Time Advance Directives No April 1:21pm Advance Directive Response Recorded Date/ Time Advance Directives No April 2:21pm Reason for Referral Reason bilateral lower leg weakness, frequent headach Diagnosis 1 Leg weakness, bilate ral (R29.898) Referral Organization [facility] Referring Provider First Name Louis Referring Provider Last Name Vivienne Referring Provider Specialty Orthopedic Surgery Referred Organization [facility] Referred Address [address] [place] [place], [place],[address] Referred Provider Specialty Neurology Referral Priority Routine Chief Complaint and Reason for Visit Chief Complaint Amb Documentation tooth extracted last , not feeling well fmla paperwork update Reason for Visit DELFIN (generalized anx iety disorder) Hypothyroid Migraine headache Overweight Chief Complaint fmla paperwork updat e wellness Reason for Visit DELFIN (generalized anx iety disorder) Migraine headache Overweight DELFIN (generalized anxiety disorder) Hypothyroid Osteopenia Overweight Screening mammogram for breast cancer Wellness examination Additional Source Comments INFORMATION SOURCE (unrecogn ized section and content) DATE CREATED AUTHOR 09/04/2018 [facility] DATE CREATED AUTHOR AUTHOR'S ORGANIZ ATION 01/23/2022 [facility] dical Specialist DATE CREATED AUTHOR AUTHOR'S ORGANIZ ATION 06/09/2022 [facility] DATE CREATED AUTHOR AUTHOR'S ORGANIZ ATION 10/05/2022 [facility] DATE CREATED AUTHOR AUTHOR'S ORGANIZ ATION 02/13/2023 [facility] DATE CREATED AUTHOR AUTHOR'S ORGANIZ ATION 03/11/2023 Stef Salvador [facility] Care Teams (unrecognized sec tion and content) Team Status: Active Member Role Status Dates Wagner Jade DO Primary Care Provider Active Team Status: Inactive Member Role Status Dates Wagner Jade DO Primary Care Provide r, Attending Provider Active Start: November 26, 2023 End: November 26, 2023 Team Status: Active Member Role Status Dates Wagner Jade DO Primary Care Provide r, Attending Provider Active Start: January 29, 2024 Team Status: Inactive Member Role Status Dates Wagner Jade DO Primary Care Provide r, Attending Provider Active Start: February 15, 2024 End: February 15, 2024 Team Status: Active Member Role Status Dates [...] End: October 18, 2023 Eleni Almeida APRN TENNIS DIRECTOR-C Attending Provider Act yamel Start: October 18, 2023 End: October 18, 2023 Team Status: Inactive Member Role Status Dates Wagner Jade DO Primary Care Provide r, Attending Provider Active Start: November 26, 2023 End: November 26, 2023 Team Status: Inactive Member Role Status Dates Wagner Jade DO Primary Care Provider Active Louis Palafox DO Attending Provider Active Production Underwriter Relationship Specialty Start Date End Date Louis Palafox DO [address] [place] [address] Referring Orthopedics 12/28/22 Team Status: Active Member Role Status Dates Wagner Jade DO Primary Care Provide r, Attending Provider Active Start: January 29, 2024 Team Status: Inactive Member Role Status Dates Wagner Jade , DO Primary Care Provide r, Attending Provider Active Start: February 15, 2024 End: February 15, 2024 Goals (unrecognized section and content) Goals may be documented in a n alternate sectionNo InformationNo InformationNo InformationNo InformationNo InformationNo InformationNo InformationNo InformationNo InformationNo InformationNo InformationNo InformationNo InformationNo InformationNo InformationNo InformationNo InformationNo InformationNo InformationNo Information No data available for this sectionNo InformationNo InformationNo InformationNo InformationNo InformationNo InformationNo InformationGoals may be documented in an alternate sectionGoals may be documented in an alternate section [...] or prosecute any alcohol or drug abuse patient.[facility] FOR RECORDS PERTAINING TO PATIENTS WHO [...] BE BASED ON THE PRIMARY CLINICAL RECORDS. [email or web address]. provides no warranty or guarantee of the accuracy or completeness of information in this document.
[2024-02-16 09:17] LABS: Basophils Absolute Auto 0.1 10^3/uL (0.0-0.1); Basophils Percent Auto 0.8 % (0.2-2.0); Eosinophils Absolute Auto 0.2 10^3/uL (0.0-0.7); Eosinophils Percent Auto 3.6 % (0.9-7.0); Hematocrit 42.6 % (36.0-48.0); Hemoglobin 13.8 g/dL (12.0-16.0); Immature Granulocytes Abs Auto 0.01 10^3/uL (0.00-0.03); Immature Granulocytes Pct Auto 0.2 % (0.0-0.5); Lymphocytes Absolute Auto 2.1 10^3/uL (1.2-3.8); Mean Corpuscular HGB Conc 32.4 g/dL (29.9-35.2); Mean Corpuscular Volume 89.5 fL (81.0-99.0); Mean Platelet Volume 9.3 fL (9.5-13.5); Monocytes Absolute Auto 0.5 10^3/uL (0.3-0.8); Monocytes Percent Auto 8.2 % (1.7-12.0); Neutrophils Absolute Auto 3.2 10^3/uL (1.4-6.5); Neutrophils Percent Auto 52.2 % (43.0-75.0); Platelet Count 274 10^3/uL (150-450); Red Blood Count 4.76 10^6/uL (4.20-5.40); Red Cell Distribution Width 11.9 % (11.0-15.0); White Blood Count 6.1 10^3/uL (4.0-11.0)
[2024-02-16 09:30] LABS: Alanine Aminotransferase 21 U/L (14-59); Albumin Globulin Ratio 1.1; Albumin Level 3.5 g/dL (3.4-5.0); Alkaline Phosphatase 77 U/L (46-116); Anion Gap 9.8; Aspartate Amino Transferase 16 U/L (15-37); BUN Creatinine Ratio 23.9; Bilirubin Total 0.3 mg/dL (0.2-1.0); Calcium 9.1 mg/dL (8.5-10.1); Carbon Dioxide 29.9 mmol/L (21.0-32.0); Chloride 105 mmol/L (98-107); Chol HDL Ratio 2.9; Cholesterol 207 mg/dL (<=200); Estimated GFR (African America >60 (>=60); Estimated GFR (Non-African Ame >60 (>=60); Globulin 3.2 g/dL; Glucose 99 mg/dL (74-106); HDL Cholesterol 71 mg/dL (40-60); Potassium 4.7 mmol/L (3.5-5.1); Sodium 140 mmol/L (136-145); Total Protein 6.7 g/dL (6.4-8.2); Triglycerides 47 mg/dL (<=150); VLDL CHOLESTEROL 9.4 mg/dL
== END 2024-02-16 08:14 | disposition home or self-care (01) ==
LOC: LAB 08:14
PROVIDERS: PCP Internal Medicine; Visit Provider Internal Medicine
DX: Z00.00 Encounter for general adult medical examination without abnormal findings (principal)
CPT/HCPCS: 36415; 80053; 80061; 85025

== ENCOUNTER 2025-02-27 06:47 | Outpatient (OUT) | payer OTHER, SELFPAY ==
--- OUTSIDE RECORDS SUMMARY | 2022-03-18 20:00 | XMS_ITS | Continuity of Care Document ---
Author Organization [facility] o Address [address] [place] [address] Phone Care Team Providers [employer] Consultant Name Role Phone Unavailable Unavailable Unavailable Medications Medication Instructions Dosage Effective Dates (start - stop) Status Comments celecoxib - No Longer Active escitalopram oxalate 2021 - No Longer Active polyethylene glycol 3350 - No Longer Active Synthroid - No Longer Active levothyroxine .TAKE 1 TABLET BY MOUTH DAILY - No Longer Active metronidazole - No Longer Active Advance Directives Directive Yes / No Effective Date File Name No Information Encounters Encounter Description Practice Location Reason(s) For Visit Diagnoses Date Provider Providers Copied on Encounter [facility], [address] [place] [address], [address], tel:[phone] [place] Conversion No Information No Information Family History Family Member Type Diagnosis Age At Onset No Information Payers Payer name Insurance type Covered republican ID Authoriza tion(s) No Information Social History Type Description Quantity Date Captured Comments Sex Female Smoking Status No Information Chief Complaint And Reason For Visit No Information Reason For Referral Reason For Referral No Information History Of Present Illness Encounter Date Complaint History Of Prese nt Illness No Information Functional Status Date Functional Assessmen t No Information Medications Administered Medication Instructions Dosage Effective Dates (start - stop) Status Comments celecoxib - No Longer Active escitalopram oxalate 2021 - No Longer Active polyethylene glycol 3350 - No Longer Active Synthroid - No Longer Active levothyroxine .TAKE 1 TABLET BY MOUTH DAILY - No Longer Active metronidazole - No Longer Active Instructions Date Instruction Additional Infor mation No Information Assessments Type Assessment Date No Information Patient Care Teams Name Effective Dates (start - stop) Status Members No Information
--- OUTSIDE RECORDS SUMMARY | 2025-02-27 06:51 | XMS_ITS | Encounter Summary ---
Author Organization [facility] Address [address] [place] [address] Phone Care Team Providers Care Ammonia Still Operator Name Role Phone Generic Provider, No Assigned Pcp Primary Car e Provider Unavailable Encounter Details Date Type Department Care Team (Latest Contact Info) Description 02/26/2025 Travel Social History Tobacco Use Types Packs/Day Years Used Date Smoking Tobacco: Never Assessed Comments Unknown Sex and Gender Information Value Date Recorded Sex Assigned at Not on file Legal Sex Female 3:31 PM EDT Gender Identity Not on file Sexual Orientation Not on file documented as of this encounter Plan of Treatment Upcoming Encounters Date Type Department Care Team (Late st Contact Info) Description 02/27/2025 11:15 AM EDT Ancillary Procedure [facility] [address] [facility] [address] [place] [address] documented as of this encounter Visit Diagnoses Not on filedocumented in this encounter Care Teams Ammonia Still Operator Relationship Specialty Start Date End Date Generic Provider, [place] [address] PCP - General Hand Tool Filer 02/25/25 documented as of this encounter
--- OUTSIDE RECORDS SUMMARY | 2025-02-27 06:51 | XMS_ITS | Encounter Summary ---
Author Organization [facility] Address [address] [place] [address] Phone Care Team Providers Care Website/Blog Editor Name Role Phone Generic Provider, No Assigned Pcp MD Primary Car e Provider Unavailable Reason for Referral * Imaging (Routine) - Pending Review Specialty Diagnoses / Procedures Referred By Gabrielle t Referred To Contact Radiology Diagnoses Family history of ischemic heart disease and other diseases of the circulatory system Procedures CT cardiac scoring wo IV contrast Wagner Wright DO [address] [place] [address] Phone: tel: fax: Referral ID Status Reason Start Date Expiration Date Visits Requested Visits Authorized [id number] Pending Review Perform Procedure 02/25/2025 03/27/2026 1 1 Encounter Details Date Type Department Care Team (Late st Contact Info) Description 02/25/2025 Transcribe Orders [facility] [address] [place] [address] Wagner Wright DO [address] [place], [place] [id number] Family history of ischemic heart disease and other diseases of the circulatory system (Primary Dx) Social History Tobacco Use Types Packs/Day Years [...] Description 02/27/2025 11:15 AM EDT Ancillary Procedure [facility] [address] [facility] [address] [place] [address] Scheduled Orders Name Type Priority Associated Diagnoses Orde r Schedule CT cardiac scoring wo IV contrast Imaging Routine Family history of ischemic heart disease and other diseases of the circulatory system Expected: 02/25/2025, Expires: 02/25/2026 documented as of this encounter Visit Diagnoses Diagnosis Family history of ischemic heart disease and other diseases of the circulatory system- Primary documented in this encounter Care Teams Website/Blog Editor Relationship Specialty Start Date End Date Generic Provider, [place] [address] PCP - General Typesetting Supervisor 02/25/25 documented as of this encounter
--- OUTSIDE RECORDS SUMMARY | 2025-02-27 06:51 | XMS_ITS | Clinical Summary ---
Author Organization [facility] Address [address] [place] [address] Care Team Providers Care Chassis Engineer Name Role Phone Tyson Mora MD Primary Care Provider + Social History Tobacco Use Types Packs/Day Years Used Date Smoking Tobacco: Never Assessed Comments Unknown Sex and Gender Information Value Date Recorded Sex Assigned at Not on file Legal Sex Female 12:34 AM EDT Gender Identity Not on file Sexual Orientation Not on file Plan of Treatment Not on file Care Teams Chassis Engineer Relationship Specialty Start Date End Date Tyson Mora MD [address] [place] [address] PCP - General 06/28/13
--- OUTSIDE RECORDS SUMMARY | 2025-02-27 06:51 | XMS_ITS | Clinical Summary ---
Author Organization [facility] Address [address] [place] [address] Phone Care Team Providers Care Telegraph Office Telephone Clerk Name Role Phone Generic Provider, No Assigned Pcp MD Primary Car e Provider Unavailable Encounters Date Type Department Care Team Description 02/26/2025 Travel 02/25/2025 Transcribe Orders [facility] [address] [place] [address] Wagner Wright E, DO Family history of ischemic heart disease and other diseases of the circulatory system (Primary Dx) from Last 3 Months Social History Tobacco Use Types Packs/Day Years Used Date Smoking Tobacco: Never Assessed Comments Unknown Sex and Gender Information Value Date Recorded Sex Assigned at Not on file Legal Sex Female 3:31 PM EDT Gender Identity Not on file Sexual Orientation Not on file Plan of Treatment Upcoming Encounters Date Type Department Care Team (Late st Contact Info) Description 02/27/2025 11:15 AM EDT Ancillary Procedure [address] [id number] Health Maintenance Due Date Last Done Comments CT Colonography 1970 Colonoscopy 1970 Colorectal Cancer Screening 1970 FIT-DNA (Cologuard) 1970 FIT 1970 HIV Screening 1970 Lipid Panel 1970 Sigmoidoscopy 1970 Yearly Adult Physical 1970 MMR Vaccines (1 of 1 - Stand lasha series) 1971 Hepatitis C Screening 1988 Hepatitis B Vaccines (1 of 3 - 19+ 3-dose series) 1989 Cervical Cancer Screening 1991 HPV/Cotest 1991 Pap Smear 1991 DTaP/Tdap/Td Vaccines (1 - Tdap) 1992 Mammogram 2010 Pneumococcal Vaccine (1 of 1 - PCV) 2020 Zoster Vaccines (1 of 2) 2020 COVID-19 Vaccine (1 - 2023-2 5 season) 2025 Influenza Vaccine (#1) 2025 HIB Vaccines Aged Out No longer eligi ble based on patient's age to complete this topic HPV Vaccines Aged Out No longer eligi ble based on patient's age to complete this topic Hepatitis A Vaccines Aged Out No long er eligible based on patient's age to complete this topic IPV Vaccines Aged Out No longer eligi ble based on patient's age to complete this topic Meningococcal Vaccine Aged Out No [place] eligible based on patient's age to complete this topic Rotavirus Vaccines Aged Out No longer eligible based on patient's age to complete this topic Insurance [facility] Care Teams Telegraph Office Telephone Clerk Relationship Specialty Start Date End Date Generic Provider, No [place] [address] PCP - General Ship Keeper 02/25/25
--- OUTSIDE RECORDS SUMMARY | 2025-02-27 06:51 | XMS_ITS | Clinical Summary ---
Author Organization [facility] Address [address] [place] [address] Care Team Providers Care Pastry Mixer Name Role Phone Carol Guardado Primary Care Provider [phone] Allergies No known active allergies Medications magnesium gluconate (MAGONATE) 500 MG tablet 07/11/2019 Active busPIRone (BUSPAR) 5 MG tablet Take 7.5 mg by mouth 2 times daily Active estrogen, conjugated,-medr oxyprogesterone (PREMPRO) 0.45-1.5 MG per tablet Take 1 tablet by mouth daily 30 tablet 3 07/18/2019 Active SYNTHROID 88 MCG tablet TAKE ONE TABLET BY MOUTH DAILY 30 tablet 3 06/15/2020 Active Active Problems Problem Noted Date Diagnosed Date 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 Premature menopause 07/18/2019 Social History Tobacco Use Types Packs/Day Years Used Date Smoking Tobacco: Never Assessed Comments Unknown Sex and Gender Information Value Date Recorded Sex Assigned at Not on file Legal Sex Female 11:46 AM EST Gender Identity Not on file Sexual Orientation Not on file Last Filed Vital Signs Vital Sign Reading Time Taken Comments Blood Pressure 115/76 07/18/2019 2:15 PM EST Pulse 92 07/18/2019 2:15 PM EST Temperature - - Respiratory Rate - - Oxygen Saturation - - Inhaled Oxygen Concentration - - Weight 74.8 kg (165 lb) 07/18/2019 2:15 PM EST Height 160 cm (5' 3 ) 07/18/2019 2:15 PM EST Body Mass Index 29.23 07/18/2019 2:15 PM EST Plan of Treatment Not on file Insurance [employer] Care Teams Pastry Mixer Relationship Specialty Start Date End Date aCrol [place] [place] [address] PCP - General Family Medicine 07/15/19
--- OUTSIDE RECORDS SUMMARY | 2025-02-27 06:51 | XMS_ITS | Encounter Summary ---
Author Organization [facility] Address [address] [place] [address] Care Team Providers Care Hair Clipper Power Name Role Phone Louis Palafox DO Unavailable Source Comments In the event this information is protected by the Federal Confidentiality of Alcohol and Drug AbusePatient Records regulations: The Federal rules restrict any use of the information to criminally investigate or prosecute any alcohol or drug abuse patient.[facility] Encounter Details Date Type Department Care Team (Late st Contact Info) Description 02/28/2023 Patient Msg Neurology [address] [id number] Provider, [facility] PLEASE READ Important Medication Instructions for Neuro Autonomic ANS with TILT and QSART 04/03 Social History Tobacco Use Types Packs/Day Years Used Date Smoking Tobacco: Never Smokeless Tobacco: Never Alcohol Use Standard Drinks/Week Comments Not Currently 0 (1 standard drink = 0.6 oz pur e alcohol) Comments Unknown Sex and Gender Information Value Date Recorded Sex Assigned at Female 01/18/2023 9:13 PM EDT Legal Sex Female 10:16 AM EDT Gender Identity Female 01/18/2023 9:13 PM EDT Sexual Orientation Straight 01/18/2023 9: 13 PM EDT documented as of this encounter Plan of Treatment Not on file documented as of this encounter Visit Diagnoses Not on filedocumented in this encounter Care Teams Hair Clipper Power Relationship Specialty Start Date End Date Louis Palafox DO [address] [place] [address] Referring Orthopedics 12/28/22 documented as of this encounter
--- OUTSIDE RECORDS SUMMARY | 2025-02-27 06:51 | XMS_ITS | Clinical Summary ---
Author Organization [facility] Address [address] [place], [place] [id number] Care Team Providers Care Enterprise Infrastructure Architect Name Role Phone Louis Palafox DO Unavailable [phone] Allergies No known active allergies Medications tiZANidine (ZANAFLEX) 4 mg tablet Take 4 mg by mouth as needed. 3 Active eletriptan (RELPAX) 40 mg tablet Take 40 mg by mouth once daily. 3 Active SYNTHROID 100 mcg tablet Take 1 tablet by mouth once daily. 3 Active metroNIDAZOLE (METROGEL) 0.75 % (37.5mg/5 gram) Vaginal Gel Use 1 Applicatorful vaginally daily at bedtime. Active polyethylene glycol 3350 (MIRALAX) 17 gram/dose powder Take 17 g by mouth once daily. Dissolve dose in 4 - 8 ounces of liquid and take as directed. Active Social History Tobacco Use Types Packs/Day Years Used Date Smoking Tobacco: Never Smokeless Tobacco: Never Tobacco Cessation:Counseling Given: No Alcohol Use Standard Drinks/Week Comments Not Currently 0 (1 standard drink = 0.6 oz pur e alcohol) Comments Unknown Sex and Gender Information Value Date Recorded Sex Assigned at Female 01/18/2023 9:13 PM EDT Legal Sex Female 10:16 AM EDT Gender Identity Female 01/18/2023 9:13 PM EDT Sexual Orientation Straight 01/18/2023 9: 13 PM EDT Last Filed Vital Signs Vital Sign Reading Time Taken Comments Blood Pressure 128/77 01/19/2023 8:53 AM EDT Pulse 90 01/19/2023 8:53 AM EDT Temperature - - Respiratory Rate - - Oxygen Saturation 100% 01/19/2023 8:53 AM EDT Inhaled Oxygen Concentration - - Weight 73.9 kg (163 lb) 01/19/2023 8:53 AM EDT Height 160 cm (5' 3 ) 01/19/2023 8:53 AM EDT Body Mass Index 28.87 01/19/2023 8:53 AM EDT Plan of Treatment Health Maintenance Due Date Last Done Comments Anxiety Screening 1988 Depression Screening 1988 HIV Screening 1988 Hepatitis C Screening 1988 DTaP,Tdap,Td Vaccine (1 - Tdap) 1989 Hepatitis B Vaccine (1 of 3 - 19+ 3-dose series) 1989 Cervical Cancer Screening [address] Colonography 2015 Cologuard (FIT-DNA) 2015 Colonoscopy 2015 Colorectal Cancer Screening 2015 Diabetes Screening 2015 Fecal Occult Blood 2015 Lipid Screening 2015 Sigmoidoscopy 2015 Pneumococcal Vaccine: 50+ (1 of 1 - PCV) 2020 Shingrix Vaccine (1 of 2) 2020 Influenza Vaccine (#1) 2025 9, 04/05/2015, 07/15/2013 Insurance [facility] PPO Member Subscriber Plan / Payer (Ef fective 2022-Present) Name:CLAIRE SERRANO Relation to Subscriber:Spouse Name:AMIRA SERRANO Date of :1962 (Home) Address: [address] [place] [address] Payer ID:Not on file Group ID:Not on file Type:PPO Address: [place] [id number] Care Teams Enterprise Infrastructure Architect Relationship Specialty Start Date End Date Louis Palafox DO [address] [place] [address] Referring Orthopedics 12/28/22
--- OUTSIDE RECORDS SUMMARY | 2025-02-27 06:51 | XMS_ITS | Continuity of Care Document ---
Author Organization [facility] Address [address] [address] Insurance Providers Payer Plan Claims Address Claims Phone Policy Number Group Number Relation Employer Guarantor Name Guarantor Guarantor Address Guarantor Phone [employer] [address], [place] [id number] MMO MMO [address], [place] [address] tel:[phone] Problems Condition ICD9 code ICD10 code SNOMED code Start Date End Date S tatus Encounter for screening for other metabolic disorders Z13.228 Results No Results Allergies, adverse reactions, alerts No known allergies and adverse reactions Medications No administered medications reported Vital Signs No vital signs reported Social History No smoking Hx information available
--- OUTSIDE RECORDS SUMMARY | 2025-02-27 06:51 | XMS_ITS | Clinical Summary ---
Author Organization [facility] Address [address] [facility] [place] [address] Care Team Providers Care Yarn Sorter Name Role Phone Eleni Caballero DO Primary Care Provider Unav ailable Allergies No known active allergies Medications levothyroxine (Synthroid, Levoxyl) 100 MCG tablet TAKE 1 TABLET BY MOUTH EVERY MORNING ON AN EMPTY STOMACH for 90 Active Family History Medical History Relation Name Comments Kidney disease Father Breast cancer Other aunt Heart disease Paternal Grandfather Heart disease Paternal Grandmother Stroke Sibling Relation Name Status Comments Father Alive Mother Alive Other aunt Paternal Grandfather Paternal Grandmother Sibling Alive Social History Tobacco Use Types Packs/Day Years Used Date Smoking Tobacco: Never Tobacco Cessation:Counseling Given: Not Answered Alcohol Use Standard Drinks/Week Comments Yes 0 (1 standard drink = 0.6 oz pure alcohol) Caffeine intake: 2-3 cups per day AUDIT-C Answer Date Recorded Q1: How often do you have a drink containing alc ohol? Monthly or less 08/21/2023 Q2: How many drinks containi ng alcohol do you have on a typical day when you are drinking? 1 or 2 08/21/2023 Q3: How often do you have si x or more drinks on one occasion? Never 08/21/2023 Comments No Sex and Gender Information Value Date Recorded Sex Assigned at Female 11/08/2022 12:35 PM EDT Legal Sex Female 7:25 PM EDT Gender Identity Female 11/08/2022 12:35 PM EDT Sexual Orientation Straight 01/25/2023 9: 47 AM EDT Last Filed Vital Signs Vital Sign Reading Time Taken Comments Blood Pressure 110/72 07/29/2024 12:10 PM EST Pulse - - Temperature - - Respiratory Rate - - Oxygen Saturation - - Inhaled Oxygen Concentration - - Weight 75.3 kg (166 lb) 07/29/2024 12:10 PM EST Height 157.5 cm (5' 2 ) 01/10/2022 12:00 PM EDT Body Mass Index 30.36 01/10/2022 12:00 PM EDT Plan of Treatment Upcoming Encounters Date Type Department Care Team (Late st Contact Info) Description 04/08/2025 9:05 AM EDT Office Visit [facility] [address] [place] [address] Vashti Garza MD [address] [place] [address] Insurance [employer] Care Teams Yarn Sorter Relationship Specialty Start Date End Date Eleni Caballero DO PCP - General Family Medicine 10/24/22
--- OUTSIDE RECORDS SUMMARY | 2025-02-27 06:51 | XMS_ITS | CCD ---
Author Organization [facility] Care Team Providers Care Neck Pinner Name Role Phone REID FAY Attending Unavailable MATT TORRES Primary Care UnavailDO Wagner Jaramillo Primary Care Provider DO Louis Palafox Attending Provider Louis Palafox Attending Unavailable Louis Palafox Admitting Unavailable Wagner Jade Primary Care Unavailable Louis Palafox Unavailable Wagner Jade Unavailable Yara Mahajan Unavailable KALIE, DR RUSSELL Consulting Unavailable KALIE, DR RUSSELL Primary Care Unavailable BALL, DR RUSSELL Admitting Unavailable BALL, DR RUSSELL [...] Rey Attending Unavailable Jazmine Rey Admitting Unavailable Eleni Caballero DO Primary Care Provider Unav ailable CAROL DONOVAN Attending Unavailable CAROL DONOVAN Referring Unavailable CAROL DONOVAN Referring Unavailable CAROL DONOVAN Referring Unavailable Wagner Jade DO Primary Care Provider [phone] Wagner Jade DO Attending Provider Medications Current Medications Medication Drug Class(es) Dates [...] Aug, Active acyclovir 0.05 mg/mg topical ointment (15 sources) Herpesvirus Nucleoside Analog DNA Polymerase Inhibitor, Herpes Simplex Virus Nucleoside Analog DNA Polymerase Inhibitor, Herpes Zoster Virus Nucleoside Analog DNA Polymerase Inhibitor Start: 11-09-2023 Acyclovir 5 % ointment Active 1 APPLIC TOPICAL Six times daily as needed November 09, 2023 12:00am Complies with drug therapy Acyclovir 5 % 1 application Externally Five times a day for 7 days Active D3 with Calcium (1 source) Start: 11-04-2019 D3 with Calciu m Refill(s) 0 Start Date: 11/04/19 Status: Ordered eletriptan 40 mg oral tablet (20 sources) Serotonin-1b and Serotonin-1d Receptor Agonist Start: 11-09-2023 End: 12-27-2023 take 1 tablet by mouth once as needed for headache Eletriptan 40 mg tablet Active 40 MG PO Once as needed for migraine headache December 27, 2023 10:52pm may repeat in 2 hours if headache persists, max 80mg/24 hours Complies with drug therapy Start: 11-23-2022 take 1 tablet by stefany [...] propionate 0.05 mg/actuat metered dose nasal spray (6 sources) Corticosteroid Start: 4 take 1 spray(s) nasal route twice daily Fluticasone Propionate (Flonase Allergy Relief) 50 mcg/actuation spray,suspension Active 1 SPRAY INTRANASAL Twice daily 16 October 18, 2023 12:00am administer into each nostril Complies with drug therapy ibuprofen 800 mg oral tablet (7 sources) Nonsteroidal Anti-inflammatory Drug Start: 4 take 1 tablet by mouth every eight hours as needed for pain Ibuprofen 800 mg tablet Active 800 MG PO Every 8 hours as needed for pain 16 04October 18, 2023 12:00am Complies with drug therapy Start: 09-25-2014 take 1 tablet by stefany th four times daily as needed for pain ibuprofen 800 mg Tab 800 mg = 1 tab(s), Oral, QID, PRN as needed for pain, Refills(s) 0 Start Date: 09/25/14 Status: Ordered levothyroxine sodium 0.1 mg oral tablet (20 sources) l-Thyroxine Start: 07-22-2024 Levothyroxine 100 mcg tablet Active 0 .ROUTE .COMPLEX 98 July 22, 2024 9:48pm TAKE 1 TABLET DAILY EXCEPT ONE AND ONE-HALF TABLETS ON SUNDAYS ONCE DAILY Complies with drug therapy Start: 09-03-2020 End: 11-09-2023 take 1 tablet [...] Start Date: 11/04/19 Status: Ordered Start: 10-04-2015 End: 07-22-2024 Levothyroxine 100 mcg tablet Discontinued 100 MCG PO Daily November 09, 2023 12:00am July 22, 2024 9:48pm 1 1/2 tablet on Sundays Start: 10-04-2015 take 1 tablet by stefany [...] Start Date: 09/25/14 Status: Ordered Multivitamin preparation (4 sources) Start: 09-03-2020 take 1 tablet by mouth once daily Multivitamin Active 1 TAB PO Daily September 03, 2020 12:00am Start: 09-03-2020 take 1 tablet by stefany th once daily Multivitamin Active 1 TAB PO Daily September 02, 2020 11:00pm Multivitamin Tablet (3 sources) Start: 09-03-2020 take 1 tablet by mouth once daily Multivitamin Tablet Active 1 TAB PO Daily September 03, 2020 12:00am Complies with drug therapy Start: 09-03-2020 take 1 tablet by stefany th once daily Multivitamin Tablet Active 1 TAB PO Daily September 03, 2020 12:00am Start: 09-03-2020 take 1 tablet by stefany th once daily Multivitamin Tablet Active 1 TAB PO Daily September 02, 2020 11:00pm tiZANidine 4 mg oral tablet (20 sources) Central alpha-2 Adrenergic Agonist Start: 09-03-2023 Tizanidine 4 mg tablet Active 0 .ROUTE .COMPLEX September 03, 2023 2:07pm TAKE ONE-HALF (1/2) TO ONE TABLET AT BEDTIME NEEDED FOR PAIN Complies with drug therapy Start: 09-03-2023 Tizanidine Act yamel 0 .ROUTE .COMPLEX September 03, 2023 2:07pm TAKE ONE-HALF (1/2) TO ONE TABLET AT BEDTIME NEEDED FOR PAIN Start: 09-03-2023 End: 03-18-2024 take 0.5-1 tablets by mouth once daily at bedtime as needed for pain Tizanidine 4 mg tablet Discontinued 4 MG PO Daily at bedtime as needed September 03, 2023 12:00am September 03, 2023 [...] twice daily for 1 days Feb, Active zolpidem tartrate 5 mg oral tablet (2 sources) gamma-Aminobutyric Acid-ergic Agonist Start: 09-01-2024 take 1 tablet by mouth once daily at bedtime as needed Zolpidem (Ambien) 5 mg tablet Active 5 MG PO Daily at bedtime as needed for insomnia September 01, 2024 12:00am Complies with drug therapy {20 (nirmatrelvir 150 MG Oral Tablet) / 10 (ritonavir 100 MG Oral Tablet) } Pack [Paxlovid 5-Day] (1 source) Paxlovid (300/100) 20 x 150 MG & 10 x 100MG 3 Orally bid for 5 days Active Completed/Discontinued Medications Medication Drug Class(es) Dates Sig (Normalized) Sig (Original) amitriptyline hydrochloride 10 mg oral tablet (20 sources) Tricyclic Antidepressant Start: 06-05-2024 End: 09-01-2024 take 2 tablets by mouth once daily at bedtime Amitriptyline 10 mg tablet Discontinued 20 MG PO Daily at bedtime 180 June 05, 2024 11:34am September 01, 2024 2:25pm Start: 03-10-2024 End: 06-05-2024 Amitriptyline 10 mg tablet Discontinued 0 .ROUTE .COMPLEX March 10, 2024 7:35am June 05, 2024 11:35am TAKE 1 TABLET DAILY AT BEDTIME Start: 09-02-2023 End: 03-10-2024 take 1 tablet by mouth once daily at bedtime Amitriptyline 10 mg tablet Discontinued 10 MG PO Daily at bedtime 90 90 September 02, 2023 3:16pm March 10, 2024 7:35am Start: 07-06-2023 take 1 tablet by stefany th once at bedtime Amitriptyline HCl 10 MG 1 tablet at bedtime Orally q HS for 30 days Jun, Active amoxicillin 875 mg oral tablet (3 sources) Penicillin-class Antibacterial Start: 08-01-2024 End: 10-14-2024 take 1 tablet by mouth twice daily Amoxicillin 875 mg tablet Discontinued 875 MG PO Twice daily 14 August 01, 2024 1:00am October 14, 2024 2:04pm amoxicillin 875 mg / clavulanate 125 mg oral tablet (6 sources) Penicillin-class Antibacterial Start: 10-18-2023 End: 11-09-2023 take 1 tablet by mouth twice daily Amoxicillin-Pot Clavulanate 875-125 mg tablet Discontinued 1 TAB PO Twice daily 20 October 18, 2023 12:00am November 09, 2023 2:21pm [...] mcg busPIRone hydrochloride 7.5 mg oral tablet (14 sources) Start: 09-03-2020 End: 11-09-2023 take 1 tablet by mouth once daily as needed for anxiety Buspirone 7.5 mg tablet Discontinued 7.5 MG PO Daily as needed for Anxiety September 03, 2020 12:00am November 09, 2023 2:23pm take 1 tablet by stefany th every twelve hours busPIRone HCl 7.5 MG 1 tablet Orally Twi ce a day Active Calcium Carbonate-Vitamin D2 (4 sources) Start: 09-03-2020 End: 11-09-2023 take 1 tablet by mouth once daily Calcium Carbonate-Vitamin D2 Discontinued 1 TAB PO Daily September 03, 2020 12:00am November 09, 2023 2:23pm Start: 09-03-2020 take 1 tablet by stefany th once daily Calcium Carbonate-Vitamin D2 Active 1 TAB PO Daily September 02, 2020 11:00pm Calcium Carbonate-Vitamin D2 600 mg calcium- 200 unit Tablet (3 sources) Start: 09-03-2020 End: 11-09-2023 take 1 tablet by mouth once daily Calcium Carbonate-Vitamin D2 600 mg calcium- 200 unit Tablet Discontinued 1 TAB PO Daily September 03, 2020 12:00am November 09, 2023 2:23pm Start: 09-03-2020 End: 11-09-2023 take 1 tablet by mouth once daily Calcium Carbonate-Vitamin D2 600 mg calcium- 200 unit Tablet Discontinued 1 TAB PO Daily September 02, 2020 11:00pm November 09, 2023 1:23pm celecoxib 200 mg oral capsule (20 sources) [...] 3 Orally bid for 5 days Not-Taking/PRN phentermine hydrochloride 37.5 mg oral tablet (20 sources) Sympathomimetic Amine Anorectic Start: 024 End: take 1 tablet by mouth once daily 30 minutes after breakfast Phentermine (Adipex-P) 37.5 mg tablet Discontinued 37.5 MG PO Daily March 17, 2024 10:23am September 01, 2024 12:51pm must administer 30 minutes before or 1-2 hours after breakfast Start: 12-15-2022 take 1 tablet by stefany th once daily before breakfast Adipex-P 37.5 MG 1 tablet before breakfast Orally Once a day for 30 days Jun, Active Start: 10-16-2022 take 1 tablet by stefany th once daily before breakfast Adipex-P 37.5 MG 1 tablet before breakfast Orally Once a day for 30 days October, Active polyethylene glycol 3350 70831 mg powder for oral solution (1 source) [...] of liquid and take as directed. Tirzepatide (6 sources) Start: 11-09-2023 End: 02-15-2024 Tirzepatide (Mounjaro) 2.5 mg/0.5 mL pen injector Discontinued 2.5 MG SUBCUT As Directed November 08, 2023 11:00pm February 15, 2024 10:55am Start: 11-09-2023 End: 02-15-2024 Tirzepatide (Mounjaro) 2.5 m g/0.5 mL pen injector Discontinued 2.5 MG SUBCUT [...] anxiety disorder] Chronic Deficiency and other anemia (16 sources) Pernicious anemia; Translations: [Vitamin B12 deficiency anemia due to intrinsic factor deficiency] 03-17-2024 Episodic Deficiency and other anemia (3 sources) Vitamin B12 deficiency anemia due to intrinsic factor deficiency; Translations: [Pernicious anemia] Episodic Diseases of mouth; excluding dental (1 source) Acute sialoadenitis; Translations: [Sialoadenitis] 08-01-2024 Episodic Disorders of teeth and jaw (1 source) Jaw pain; Translations: [Jaw pain] 08-01-2024 Episodic Headache; including migraine (20 sources) Chronic [...] Episodic Other bone disease and musculoskeletal deformities (4 sources) Other specified disorders of bone density and [...] [Neuralgia and neuritis, unspecified] 02-12-2023 Episodic Other connective tissue disease (1 source) Achilles tendinitis; Translations: [Achilles tendinitis, unspecified leg] 10-14-2024 Episodic Other gastrointestinal disorders (12 sources) Irritable [...] nutritional; endocrine; and metabolic disorders (12 sources) Overweight; Translations: [Overweight] Onset: 2 Episodic Other nutritional; endocrine; and metabolic disorders (12 sources) Body mass index 25-29 - overweight; Translations: [Body mass index (BMI) 28.0-28.9, adult] Episodic Other screening for suspected conditions (not mental disorders or infectious disease) (20 sources) Patient encounter status; Translations: [Encounter for screening for malignant neoplasm of colon] 09-06-2020 Episodic Comment on above: Problem List clean-u p per request of Phys. EHR Cmte Other upper respiratory infections (2 sources) Acute pharyngitis, unspecified; Translations: [Acute upper respiratory infection, unspecified] Episodic Residual codes; unclassified (12 sources) Tobacco user; Translations: [Tobacco use] Episodic Residual codes; unclassified (12 sources) FH: Blood disorder; Translations: [Family history of diseases of the blood and blood-forming organs and certain disorders involving the immune mechanism] Episodic Residual codes; unclassified (2 sources) Insomnia; Translations: [Insomnia, unspecified] 09-01-2024 Episodic Residual codes; unclassified (2 sources) Family history of coronary arteriosclerosis; Translations: [Family history of ischemic heart disease and other diseases of the circulatory system] 02-25-2025 Episodic Spondylosis; intervertebral disc disorders; other back problems (12 sources) Lumbosacral spondylosis without myelopathy; Translations: [Other spondylosis with radiculopathy, lumbosacral region] Chronic Superficial injury; contusion (13 sources) Contusion of right index finger without damage to nail, subsequent encounter; Translations: [Contusion of left ankle] Resolved: 0 10-14-2024 Episodic Thyroid disorders (20 sources) Mena thyroiditis; Translations: [Autoimmune thyroiditis] Onset: 3 Chronic Unclassified (1 source) Pain in right hip; Translations: [Pain in right hip] Onset: 2 Unclassified (9 sources) Chronic daily headache; Translations: [Chronic daily headache] Unclassified (1 source) 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 Varicose veins of lower extremity (3 sources) Varicose veins of lower extremity; Translations: [Varicose veins of bilateral lower extremities with pain] Episodic Viral infection (20 sources) Herpes simplex; Translations: [...] with radiculopathy, lumbar region] Onset: 06-24-2021 Episodic Unclassified (2 sources) Acute cough R05.1 Viral infection (1 source) COVID-19 Results Test Name Value Interpretation Reference Range Facility DEXA BONE DENSITYon 03-17-20 DEXA BONE DENSITY Correlation is made with the prior DEXA examination of January 26, 2023 FINDINGS: Dual Femur bone density obtained with a ADAPTIX whole body system: Region BMD Young-Adult Age-Matched Total (g/cm2) (%) T-Score (%) Z-Score Mean 0.611 72 -2.1 83 -1.2 IMPRESSION: Impression: The mean BMD and corresponding T-score indicated above indicate Low Bone Mass (Osteopenia) and places the patient at a mild to moderate increased risk for fracture. There may be a future risk of developing osteoporosis. Compared to the prior exam, -2.8% change is seen. FINDINGS: AP Spine bone density obtained with a ADAPTIX whole body system: Region BMD Young-Adult Age-Matched Total (g/cm2) (%) T-Score (%) Z-Score L1-L4 0.825 79 -2.0 88 -1.0 Impression: The mean BMD and corresponding T-score indicated above indicate Low Bone Mass (Osteopenia) and places the patient at a mild to moderate increased risk for fracture. There may be a future risk of developing osteoporosis. Compared to the prior exam, -1.8% change is seen. Comment: The T-score is the primary focus of the interpretation of a patient?s bone mineral density measurement. The T-score is the number of standard deviations an individual is above or below the mean value for a young female having normal bone mass. The WHO defines osteoporosis based on the T-score value? +1.0 to ?0.9: Normal bone mass -1.0 to -2.5: Osteopenia and thus may be at future risk of fracture -2.6 to ?5: Osteoporosis and ?at significantly increased risk of fracture? TRANSCRIBED BY: ELECTRONICALLY SIGNED BY: Jesus Her MD Normal Not Available BI MAMMOGRAM SCREENING TOMOS YNTHESIS BILATERALon 02-19-2024 BI MAMMOGRAM SCREENING TOMOSYNTHESIS BILATERAL This is a summary report. The complete report is available in the patient's medical record. If you cannot access the medical record, please contact the sending organization for a detailed fax or copy. Examination: BI MAMMOGRAM SCREENING TOMOSYNTHESIS BILATERAL Clinical History: screening Technique: Screening digital mammography study of both breasts was performed with 2-D and 3-D tomosynthesis imaging. Study was compared to the prior exam dated 01/26/2023 Findings: Scattered areas of fibroglandular density are noted bilaterally. There is no evidence of interval dominant spiculated mass, grouped microcalcifications or skin thickening which would be suggestive of malignancy. Axillary lymph nodes are noted bilaterally. IMPRESSION: Impression: No specific evidence of malignancy seen in either breast. BI-RADS 2 Breast Density: There are scattered areas of fibroglandular density BiRads: BIRADS 2 - Benign Recommended follow-up: Routine Screening Mamm ELECTRONICALLY SIGNED BY: Gumaro Vega M.D. Normal Not Available Comment on above: Order Comment: Us or spot compression prn Basophils Auto (Bld) [#/Vol] on 02-16-2024 Basophils (Bld) [#/Vol] 0.1 10 3/uL 0.0-0.[address] [facility] Basophils/100 WBC Auto (Bld) on 02-16-2024 Basophils/100 WBC (Bld) 0.8 % 0.2-2.[address] [facility] Cholesterol in LDL Calc [Mas s/Vol]on 02-16-2024 Cholesterol in LDL [Mass/Vol] 127.0 mg/dL [facility] Comment on above: <100 mg/dl [id number] 0-129 mg/dl NEAR OR ABOVE [id number] mg/dl BORDERLINE QYPX501-240 mg/dl HIGH>190 mg/dl VERY HIGH Cholesterol in VLDL Calc [Ma ss/Vol]on 02-16-2024 Cholesterol in VLDL [Mass/Vol] 9.4 mg/dL [facility] Eosinophils/100 WBC Auto (Bl d)on 02-16-2024 Eosinophils/100 WBC (Bld) 3.6 % 0.9-7.[address] [facility] Erythrocyte distribution wid th Auto (RBC) [Ratio]on 02-16-2024 Erythrocyte distribution width (RBC) [Ratio] 11.9 % 11.0-15.[address] [facility] Estimated glomerular filtrat ion rate (GFR) non- Americanon 02-16-2024 GFR/1.73 sq M.predicted among non-blacks MDRD (S/P/Bld) [Vol rate/Area] mL/min/{1.73_m2} >=[address] [facility] Globulin Calc (S) [Mass/Vol] on 02-16-2024 Globulin (S) [Mass/Vol] 3.2 g/dL [facility] Hematocrit Auto (Bld) [Volum e fraction]on 02-16-2024 Hematocrit (Bld) [Volume fraction] 42.6 % 36.0-48.[address] [facility] Hemoglobin [Mass/volume] in Bloodon 02-16-2024 Hemoglobin (Bld) [Mass/Vol] 13.8 g/dL 12.0-16.[address] [facility] Laboratory - Chemistry and C hemistry - challengeon 02-16-2024 Albumin [Mass/Vol] 3.5 g/dL 3.4-5.0 [facility] ALP [Catalytic activity/Vol] 77 U/L 46-[address] [facility] ALT [Catalytic activity/Vol] 21 U/L 14-[address] [facility] AST [Catalytic activity/Vol] 16 U/L 15-[address] [facility] Bilirubin [Mass/Vol] 0.3 mg/dL 0.2-1.0 [facility] Calcium [Mass/Vol] 9.1 mg/dL 8.5-10.1 [facility] Chloride [Moles/Vol] 105 mmol/L 98-107 [facility] Cholesterol [Mass/Vol] 207 mg/dL High <=[address] [facility] Cholesterol in HDL [Mass/Vol] 71 mg/dL High 40-[address] [facility] Comment on above: > or =60 mg/dl - LOW CARDIOVASCULAR RISK<40 mg/dl - HIGH CARDIOVASCULAR RISK CO2 [Moles/Vol] 29.9 mmol/L 21.0-32.0 [facility] Creatinine [Mass/Vol] 0.88 mg/dL 0.55-1.[address] [facility] GFR/1.73 sq M.predicted MDRD (S/P/Bld) [Vol rate/Area] mL/min/{1.73_m2} >=[address] [facility] Glucose [Mass/Vol] 99 mg/dL 74-106 [facility] Potassium [Moles/Vol] 4.7 mmol/L 3.5-5.[address] [facility] Protein [Mass/Vol] 6.7 g/dL 6.4-8.2 [facility] Sodium [Moles/Vol] 140 mmol/L 136-145 [facility] Triglyceride [Mass/Vol] 47 mg/dL <=[address] [facility] Urea nitrogen [Mass/Vol] 21.0 mg/dL High 7.0-18.[address] [facility] Urea nitrogen/Creatinine [Mass ratio] 23.9 mg/mg [facility] Laboratory - Hematology and Cell countson 02-16-2024 Immature granulocytes/100 WBC (Bld) 0.2 % 0.0-0.[address] [facility] Leukocytes [#/volume] correc abena for nucleated erythrocytes in Blood by Automated counon 02-16-2024 WBC corrected for nucl RBC Auto (Bld) [#/Vol] 6.1 10 3/uL 4.0-11.[address] [facility] Lymphocytes Auto (Bld) [#/Vo l]on 02-16-2024 Lymphocytes (Bld) [#/Vol] 2.1 10 3/uL 1.2-3.[address] [facility] Lymphocytes/100 WBC Auto (Bl d)on 02-16-2024 Lymphocytes/100 WBC (Bld) 35.0 % 20.5-60.[address] [facility] MCH Auto (RBC) [Entitic mass ]on 02-16-2024 MCH (RBC) [Entitic mass] 29.0 pg 26.7-34.[address] [facility] MCHC Auto (RBC) [Mass/Vol]on 02-16-2024 MCHC (RBC) [Mass/Vol] 32.4 g/dL 29.9-35.[address] [facility] MCV Auto (RBC) [Entitic vol] on 02-16-2024 MCV (RBC) [Entitic vol] 89.5 fL 81.0-99.[address] [facility] Monocytes Auto (Bld) [#/Vol] on 02-16-2024 Monocytes (Bld) [#/Vol] 0.5 10 3/uL 0.3-0.[address] [facility] Monocytes/100 WBC Auto (Bld) on 02-16-2024 Monocytes/100 WBC (Bld) 8.2 % 1.7-12.[address] [facility] Neutrophils Auto (Bld) [#/Vo l]on 02-16-2024 Neutrophils (Bld) [#/Vol] 3.2 10 3/uL 1.4-6.[address] [facility] Neutrophils/100 WBC Auto (Bl d)on 02-16-2024 Neutrophils/100 WBC (Bld) 52.2 % 43.0-75.[address] [facility] No Panel Informationon 02-15 Eosinophils # (Auto) 0.2 10 3/uL 0.0-0.7 [facility] Immature Granulocyte # (Auto) 0.01 10 3/uL 0.00-0.[address] [facility] Platelet mean volume Auto (B ld) [Entitic vol]on 02-16-2024 Platelet mean volume (Bld) [Entitic vol] 9.3 fL Low 9.5-13.[address] [facility] Platelets Auto (Bld) [#/Vol] on 02-16-2024 Platelets (Bld) [#/Vol] 274 10 3/uL 150-[address] [facility] RBC Auto (Bld) [#/Vol]on RBC (Bld) [#/Vol] 4.76 10 6/uL 4.20-5.40 [facility] Serum or plasma albumin/glob ulin mass ratioon 02-16-2024 Albumin/Globulin [Mass ratio] 1.1 {ratio} [facility] Serum or plasma anion gap de terminationon 02-16-2024 Anion gap [Moles/Vol] 9.8 mmol/L [facility] Serum or plasma total choles terol/high density lipoprotein (HDL) cholesterol mass damari 02-16-2024 Cholesterol.total/Ch olesterol in HDL [Mass ratio] 2.9 {ratio} [facility] Comment on above: 3.3 - 4.4 LOW RISK4. 4 - 7.1 AVERAGE RISK7.1 - 11.0 MODERATE RISK>11.0 H[facility] Laboratory - Chemistry and C hemistry - challengeon 01-29-2024 TSH Qn 2.767 m[IU]/L 0.358-3.[address] [facility] MICHAEL w/Reflex if POSon 2022 Nuclear Ab Ql (S) Negative Invalid Interpretation Code Negative [facility] Comment on above: Result Comment: Perf ormed at: [facility] [address], [place] [id number] PhD Maya Brown Performed By: #### 1 [id number] #### [facility] [address] [place] [address] RF Quanton 03-09-2023 Rheumatoid factor Qn [IU]/mL Invalid Interpretation Code <14.0 [facility] Comment on above: Result Comment: Perf ormed at: [facility] [address], [place] [id number] PhD Maya Brown Performed By: #### 1 [id number] #### [facility] [address] [place] [address] CHEMISTRYOrdered By: SYSTEM SYSTEM on 03-07-2023 CRP [Mass/Vol] 0.8 mg/dL Normal <=1.9mg/dL [facility] Remis ol CRPon 03-07-2023 CRP [Mass/Vol] 0.8 mg/dL Normal <=1.9 [facility] Comment on above: Performed By: #### 1 [id number] #### [facility] [address] [place] [address] Consent for Treatmenton 02-17 Consent for Treatment [id number] 0CD:127 Normal [facility] HEMATOLOGYOrdered By: Keisha Fernandez on 03-07-2023 Sed Rate Automated 12 mm/h Normal 0 - 34 mm/hr [facility] HemeAutoSS Physician Orderon 03-07-2023 Physician Order [id number]. 00CD:127 Normal [facility] Sed Rate Automatedon 023 Sed Rate Automated 12 mm/hr Normal 0-34 [facility] Comment on above: Performed By: #### 1 [id number] #### [facility] [address] [place] [address] HISTORY PHYSICALon 3 HISTORY PHYSICAL HNO ID: [id number] Author: Santiago Evans MD, PhD Service: ? Author Type: Physician Type: HANDP Filed: 02/12/2023 11:00 PM Note Text: [facility] January 19, 2023 Claire Rocha Requesting Physician: [...] and a (more content not included)... Normal [facility] CNOVon 01-19-2023 CNOV Office Visit (NEADMN ) CLAIRE ROCHA ([id number]) 1970 F Date Time Provider Department 01/19/23 9:00 AM SANTIAGO EVANS During your visit today, we recorded the following information about you: Pulse Blood pressure Weight Height 90/minute 128/77 73.9 kg 1.6 m Santiago Evans MD, PhD 02/12/2023 11:00 PM Signed [facility] January 19, 2023 Claire Rocha Requesting Physician: [...] central sen (more content not included)... Normal [facility] T3, TOTAL (TRIIODOTHYRONINE) on 09-29-2022 T3, TOTAL 108 ng/dL Normal 71-180 [facility] Comment on above: Performed By: #### T 3TOTAL #### [facility] [address] [place], [place] [address] Dr. Gigi Campos FREE T4on 09-28-2022 Free T4 [Mass/Vol] 1.06 ng/dL Normal 0.76-1.46 [facility] Comment on above: Performed By: #### F T4 #### [facility] [address] [place], [place] [address] Dr. Gigi Campos TSHon 09-28-2022 TSH 2.591 uIU/mL Normal 0.358-3.740 [facility] Comment on above: Performed By: #### T #### [facility] [address] [place] [address] [address] Gigi Giles Strepon 09-10-2022 S. pyogenes Org specific cx Ql (Throat) Negative [facility] [employer] Other Quick Strep [facility] [employer] Other XR hip BI w [id number] 06-05-20 XR hip BI w PEL1V [facility] [place] [address] XRay Report Signed Patient: Claire Rocha MR#: [id number] : 1970 Acct:[id number] Age/Sex: 51 / F ADM Date: 06/05/22 Loc: [facility] Room: Type: [facility] Attending Dr: Louis Palafox DO Copies [...] Marce Echeverria M.D.06/05/2022 5:47 PM Dictation Location: [place] [address] Transcribed By: [facility] 06/05/221746 Dictated By: Marce Echeverria MD 06/05/221744 Signed By: 06/05/221746 Normal [facility] XR hip BI w PEL1V [facility] [employer] Other XR hip BI w PEL1V [facility] [place] [facility] [employer] Other XR hip BI w PEL1V [address] [place] [employer] Other [place]R [place] [address] [employer] Other XR hip BI w PEL1V XRay Report [employer] Other XR hip BI w PEL1V Signed [employer] Other XR hip BI w PEL1V Patient: David Rocha ra MR#: [id number] [employer] Other XR hip BI w PEL1V [address] [employer] Other XR hip BI w PEL1V : 1970 Acct:[id number] [employer] Other XR hip BI w PEL1V Age/Sex: 51 / F ADM Date: 06/05/22 [employer] Other XR hip BI w PEL1V Loc: [facility] Room: Type : [facility] [employer] Other XR hip BI w PEL1V Attending Dr: Louis Palafox DO [employer] Other XR hip BI w PEL1V Copies to: Louis Palafox DO [employer] Other XR hip BI w PEL1V Ordering Provider: Louis Palafox DO [employer] Other XR hip BI w PEL1V Date of Service: 06/05/22 [employer] Other XR hip BI w PEL1V XR/XR hip BI w PEL1V: Pain in right hip;Pain in left hip [employer] Other XR hip BI w PEL1V PELVIS WITH BILATERA L HIPS -3 images [employer] Other XR hip BI w PEL1V CLINICAL HISTORY: Bilateral hip and groin pain, greater on the right. No injury. [employer] Other XR hip BI w PEL1V COMPARISON: 07/27/2020 left hip [employer] Other XR hip BI w PEL1V AP view of the pelvi s frog-lateral views of both hips were obtained. No fracture, dislocation or [employer] Other XR hip BI w PEL1V bony destruction is seen. The hip joint spaces are symmetric. There is no significant arthritic [employer] Other XR hip BI w PEL1V change. The soft tissues are unremarkable. [employer] Other XR hip BI w PEL1V XR/XR hip BI w PEL1V [employer] Other XR hip BI w PEL1V IMPRESSION: [employer] Other XR hip BI w PEL1V NO ACUTE PLAIN FILM FINDINGS. [employer] Other XR hip BI w PEL1V Impression dictated by: Marce Echeverria M.D.06/05/2022 5:47 PM [employer] Other XR hip BI w PEL1V Dictation Location: [place] [address] [employer] Other XR hip BI w PEL1V Transcribed By: PWS 06/05/22 1747 [employer] Other XR hip BI w PEL1V Dictated By: Marce Echeverria MD 06/05/22 [facility] [employer] Other XR hip BI w PEL1V Signed By: [employer] Other XR hip BI w PEL1V 06/05/22 1747 [facility] [employer] Other TSHon 04-29-2022 TSH 0.320 uIU/mL Critically low 0.358-3.740 [facility] Comment on above: Performed By: #### T #### [facility] [address] [place] [address] Dr. Gigi Campos SCREENING MAMMOGRAM W/MIYA, BILATERAL*on [...] VERY IMPORTANT TO YOUR HEALTH. THE CURRENT [place] [employer]WORK GUIDELINES RECOMMEND ANNUAL MAMMOGRAPHY BEGINNING AT AGE 40. THIS FACILITY UTILIZES A REMINDER SYSTEM TO ENSURE ALL PATIENTS RECEIVE A REMINDER NOTIFICATION AT THE APPROPRIATE TIME BASED ON THE RECOMMENDATIONS OF THIS EXAM. BOARD CERTIFIED RADIOLOGIST. ACCREDITED BY THE [facility] AND FDA. Report reported and signed by Flakita Gan on 01/23/2022 1309 Normal [facility] [employer] XR KUB 1 VIEWon 01-05-2022 XR KUB [...] NORY DAVILA Date: 2022-01-05 16:27 Normal [facility] CBC AUTO DIFFon 11-22-2021 BASO # 0.1 103/ul Normal 0.0-0.1 [facility] Comment on above: Performed By: #### C BC #### [facility] [address] [place] [address] [address] Gigi Campos Basophils/100 WBC (Bld) 1.0 % Normal 0.2-2.0 [facility] Comment on above: Performed By: #### C BC #### [facility] [address] [place] [address] [address] Gigi Campos EO # 0.2 103/ul Normal 0.0-0.7 [facility] Comment on above: Performed By: #### C BC #### [facility] [address] [place] [address] Dr. Gigi Campos Eosinophils/100 WBC (Bld) 3.8 % Normal 0.9-7.0 [facility] Comment on above: Performed By: #### C BC #### [facility] [address] [place] [address] Dr. Gigi Campos Erythrocyte distribution width (RBC) [Ratio] 12.1 % Normal 11.0-15.0 [facility] Comment on above: Performed By: #### C BC #### [facility] [address] [place] [address] Dr. Gigi Campos Hematocrit (Bld) [Volume fraction] 43.0 % Normal 36.0-48.0 [facility] Comment on above: Performed By: #### C BC #### [facility] [address] [place] [address] Dr. Gigi Campos Hemoglobin (Bld) [Mass/Vol] 14.2 g/dL Normal 12.0-16.0 [facility] Comment on above: Performed By: #### C BC #### [facility] [address] [place] [address] Dr. Gigi Campos IG # 0.00 10e3/ul Normal 0.00-0.03 [facility] Comment on above: Performed By: #### C BC #### [facility] [address] [place] [address] Dr. Gigi Campos IG % 0.0 % Normal 0.0-0.5 [facility] Comment on above: Performed By: #### C BC #### [facility] [address] [place] [address] Dr. Gigi Campos LYMPH # 1.9 103/ul Normal 1.2-3.8 [facility] Comment on above: Performed By: #### C BC #### [facility] [address] [place] [address] Dr. Gigi Campos Lymphocytes/100 WBC (Bld) 35.7 % Normal 20.5-60.0 [facility] Comment on above: Performed By: #### C BC #### [facility] [address] [place] [address] Dr. Gigi Campos MANUAL DIFF REQ NO Normal [facility] Comment on above: Performed By: #### C BC #### [facility] [address] [place] [address] Dr. Gigi Campos MCH (RBC) [Entitic mass] 30.4 pg Normal 26.7-34.0 [facility] Comment on above: Performed By: #### C BC #### [facility] [address] [place] [address] Dr. Gigi Campos MCHC (RBC) [Mass/Vol] 33.0 g/dL Normal 29.9-35.2 [facility] Comment on above: Performed By: #### C BC #### [facility] [address] [place] [address] Dr. Gigi Campos MCV (RBC) [Entitic vol] 92.1 fL Normal 81.0-99.0 [facility] Comment on above: Performed By: #### C BC #### [facility] [address] [place] [address] Dr. Gigi Campos MONO # 0.4 103/ul Normal 0.3-0.8 [facility] Comment on above: Performed By: #### C BC #### [facility] [address] [place] [address] Dr. Gigi Campos Monocytes/100 WBC (Bld) 6.8 % Normal 1.7-12.0 [facility] Comment on above: Performed By: #### C BC #### [facility] [address] [place] [address] Dr. Gigi Campos NEUT # 2.8 103/ul Normal 1.4-6.5 [facility] Comment on above: Performed By: #### C BC #### [facility] [address] [place] [address] Dr. Gigi Campos Neutrophils/100 WBC (Bld) 52.7 % Normal 43.0-75.0 [facility] Comment on above: Performed By: #### C BC #### [facility] [address] [place] [address] Dr. Gigi Campos Platelet mean volume (Bld) [Entitic vol] 8.9 fL Critically low 9.5-13.5 [facility] Comment on above: Performed By: #### C BC #### [facility] [address] [place] [address] Dr. Gigi Campos PLT 281 103/ul Normal 150-450 [facility] Comment on above: Performed By: #### C BC #### [facility] [address] [place] [address] Dr. Gigi Campos RBC 4.67 106/ul Normal 4.20-5.40 [facility] Comment on above: Performed By: #### C BC #### [facility] [address] [place] [address] Dr. Gigi Campos WBC 5.3 103/ul Normal 4.0-11.0 [facility] Comment on above: Performed By: #### C BC #### [facility] [address] [place] [address] Dr. Gigi Campos LIPID PROFILEon 11-22-2021 CHOL-HDL RATIO NORM SEE BELOW Normal [facility] Comment on above: Result Comment: 3.3 - 4.4 LOW RISK 4.4 - 7.1 AVERAGE RISK 7.1 - 11.0 MODERATE RISK >11.0 HIGH RISK Performed By: #### T SH, CMP, LIPID #### [facility] [address] [place] [address] Dr. Gigi Campos Cholesterol [Mass/Vol] 222 mg/dL Critically high <=200 [facility] Comment on above: Performed By: #### T SH, CMP, LIPID #### [facility] [address] [place] [address] Dr. Gigi Campos Cholesterol in HDL [Mass/Vol] 60 mg/dL Normal 40-60 [facility] Comment on above: Performed By: #### T SH, CMP, LIPID #### [facility] [address] [place] [address] Dr. Gigi Campos Cholesterol in LDL [Mass/Vol] 148.2 mg/dL Normal [facility] Comment on above: Performed By: #### T SH, CMP, LIPID #### [facility] [address] [place] [address] [address] Gigi Campos Cholesterol.total/Ch olesterol in HDL [Mass ratio] 3.7 {ratio} Normal [facility] Comment on above: Performed By: #### T SH, CMP, LIPID #### [facility] [address] [place] [address] [address] Gigi Campos HDL NORMAL > or = 60 mg/dl - LO W CARDIOVASCULAR RISK <40 mg/dl - HIGH CARDIOVASCULAR RISK Normal [facility] Comment on above: Performed By: #### T SH, CMP, LIPID #### [facility] [address] [place] [address] [address] Gigi Campos LDL CALC NORMAL SEE BELOW Normal [facility] Comment on above: Result Comment: <100 mg/dl OPTIMAL 100 - 129 mg/dl NEAR OR ABOVE OPTIMAL 130 - 159 mg/dl BORDERLINE HIGH 160 - 189 mg/dl HIGH >190 mg/dl VERY HIGH Performed By: #### T SH, CMP, LIPID #### [facility] [address] [place] [address] [address] Gigi Campos Triglyceride [Mass/Vol] 69 mg/dL Normal <=150 [facility] Comment on above: Performed By: #### T SH, CMP, LIPID #### [facility] [address] [place] [address] [address] Gigi Campos VLDL CALC 13.8 mg/dL Normal [facility] Comment on above: Performed By: #### T SH, CMP, LIPID #### [facility] [address] [place] [address] [address] Gigi Campos PROF 14(COMP METB)on 022 Albumin [Mass/Vol] 3.8 g/dL Normal 3.4-5.0 [facility] Comment on above: Performed By: #### T SH, CMP, LIPID #### [facility] [address] [place] [address] [address] Gigi Campos Albumin/Globulin [Mass ratio] 1.2 {ratio} Normal [facility] Comment on above: Performed By: #### T SH, CMP, LIPID #### [facility] [address] [place] [address] [address] Gigi Campos ALP [Catalytic activity/Vol] 61 U/L Normal 46-116 [facility] Comment on above: Performed By: #### T SH, CMP, LIPID #### [facility] [address] [place] [address] [address] Gigi Campos ALT [Catalytic activity/Vol] 21 U/L Normal 14-59 [facility] Comment on above: Performed By: #### T SH, CMP, LIPID #### [facility] [address] [place] [address] [address] Gigi Campos Anion gap [Moles/Vol] 10.6 mmol/L Normal [facility] Comment on above: Performed By: #### T SH, CMP, LIPID #### [facility] [address] [place] [address] [address] Gigi Campos AST [Catalytic activity/Vol] 19 U/L Normal 15-37 [facility] Comment on above: Performed By: #### T SH, CMP, LIPID #### [facility] [address] [place] [address] [address] Gigi Campos Bilirubin [Mass/Vol] 0.4 mg/dL Normal 0.2-1.0 [facility] Comment on above: Performed By: #### T SH, CMP, LIPID #### [facility] [address] [place] [address] [address] Gigi Campos Calcium [Mass/Vol] 9.1 mg/dL Normal 8.5-10.1 [facility] Comment on above: Performed By: #### T SH, CMP, LIPID #### [facility] [address] [place] [address] [address] Gigi Campos Chloride [Moles/Vol] 106 mmol/L Normal 98-107 [facility] Comment on above: Performed By: #### T SH, CMP, LIPID #### [facility] [address] [place] [address] [address] Gigi Campos CO2 [Moles/Vol] 29.9 mmol/L Normal 21.0-32.0 [facility] Comment on above: Performed By: #### T SH, CMP, LIPID #### [facility] [address] [place] [address] [address] Gigi Campos Creatinine [Mass/Vol] 0.79 mg/dL Normal 0.55-1.02 [facility] Comment on above: Performed By: #### T SH, CMP, LIPID #### [facility] [address] [place] [address] [address] Gigi Campos EGFR-AF ITALIAN >60 Normal >=60 [facility] Comment on above: Performed By: #### T SH, CMP, LIPID #### [facility] [address] [place] [address] [address] Gigi Campos EGFR-NON AF ITALIAN >60 Normal >=60 [facility] Comment on above: Performed By: #### T SH, CMP, LIPID #### [facility] [address] [place] [address] [address] Gigi Campos Globulin (S) [Mass/Vol] 3.3 g/dL Normal [facility] Comment on above: Performed By: #### T SH, CMP, LIPID #### [facility] [address] [place] [address] [address] Gigi Campos Glucose [Mass/Vol] 92 mg/dL Normal 74-106 [facility] Comment on above: Performed By: #### T SH, CMP, LIPID #### [facility] [address] [place] [address] [address] Gigi Campos Potassium [Moles/Vol] 4.5 mmol/L Normal 3.5-5.1 [facility] Comment on above: Performed By: #### T SH, CMP, LIPID #### [facility] [address] [place] [address] Dr. Gigi Campos Protein [Mass/Vol] 7.1 g/dL Normal 6.4-8.2 [facility] Comment on above: Performed By: #### T SH, CMP, LIPID #### [facility] [address] [place] [address] [address] Gigi Campos Sodium [Moles/Vol] 142 mmol/L Normal 136-145 [facility] Comment on above: Performed By: #### T BAUD[place], LIPID #### [facility] [address] [place] [address] Dr. Gigi Campos Urea nitrogen [Mass/Vol] 25.0 mg/dL Critically high 7.0-18.0 [facility] Comment on above: Performed By: #### T [place], LIPID #### [facility] [address] [place] [address] Dr. Gigi Campos Urea nitrogen/Creatinine [Mass ratio] 31.6 mg/mg Normal [facility] Comment on above: Performed By: #### T [place], LIPID #### [facility] [address] [place] [address] Dr. Gigi Campos TSHon 11-22-2021 TSH 6.390 uIU/mL Critically high 0.358-3.740 [facility] Comment on above: Performed By: #### T [place], LIPID #### [facility] [address] [place] [address] Dr. Gigi Campos TSH RANGE SEE BELOW Normal [facility] Comment on above: Result Comment: <0.3 4 UIU/ml HYPERTHYROID 0.34-5.60 UIU/ml EUTHYROID >5.60 UIU/ml HYPOTHYROID Performed By: #### T [place], LIPID #### [facility] [address] [place] [address] Dr. Gigi Campos VITAMIN D 25 OHon 11-22-2021 VIT D 25-OH 37.0 ng/mL Normal [facility] Comment on above: Performed By: #### V ITAD #### [facility] [address] [place] [address] Dr. Gigi Campos VIT D RANGES SEE BELOW Normal [facility] Comment on above: Result Comment: <20 ng/mL Vit D deficient 20 - <30 ng/mL Vit D insufficient 30 - 100 ng/mL Vit D sufficient >100 ng/mL Potential Toxicity Performed By: #### V ITAD #### [facility] [address] [place] [address] [address] Gigi Campos Vital Signs Date Time Vital Sign Value Performing Clinician Facility 02-25-2025 14:21-0400 Body height 161.29 cm Wagner Ball DO Work Phone: [facility] 02-25-2025 14:21-0400 Body mass index (BMI) [Ratio] 26.5 kg/m2 Wagner Ball DO Work Phone: [facility] 02-25-2025 14:21-0400 Body weight 69.11 kg Wagner Ball DO Work Phone: [facility] 02-25-2025 14:21-0400 Diastolic blood pressure 70 mm[Hg] Wagner Ball DO Work Phone: [facility] 02-25-2025 14:21-0400 Heart rate 91 /min Wagner Ball DO Work Phone: [facility] 02-25-2025 14:21-0400 Respiratory rate 12 /min Wagner Ball DO Work Phone: [facility] 02-25-2025 14:21-0400 Systolic blood pressure 116 mm[Hg] Wagner Ball DO Work Phone: [facility] 10-14-2024 14:07-0400 Body height 161.29 cm [facility] 10-14-2024 14:07-0400 Body mass index (BMI) [Ratio] 28.9 kg/m2 [facility] 10-14-2024 14:07-0400 Body weight 75.29 kg [facility] 10-14-2024 14:07-0400 Diastolic blood pressure 72 mm[Hg] [facility] 10-14-2024 14:07-0400 Heart rate 93 /min [facility] 10-14-2024 14:07-0400 Respiratory rate 12 /min [facility] 10-14-2024 14:07-0400 Systolic blood pressure 115 mm[Hg] [facility] 08-01-2024 14:37-0500 Body height 161.29 cm [facility] 08-01-2024 14:37-0500 Body mass index (BMI) [Ratio] 30.3 kg/m2 [facility] 08-01-2024 14:37-0500 Body weight 78.92 kg [facility] 08-01-2024 14:37-0500 Diastolic blood pressure 75 mm[Hg] [facility] 08-01-2024 14:37-0500 Heart rate 83 /min [facility] 08-01-2024 14:37-0500 Respiratory rate 12 /min [facility] 08-01-2024 14:37-0500 Systolic blood pressure 110 mm[Hg] [facility] 07-29-2024 12:10-0500 Body mass index (BMI) [Ratio] 30.36 kg/m2 Carol Rinkes DO Work Phone: [facility] 07-29-2024 12:10-0500 Body weight 75.3 kg Carol Rinkes DO Work Phone: [facility] 07-29-2024 12:10-0500 Diastolic blood pressure 72 mm[Hg] Carol Rinkes DO Work Phone: [facility] 07-29-2024 12:10-0500 Systolic blood pressure 110 mm[Hg] Carol Rinkes DO Work Phone: [facility] 06-05-2024 10:14-0500 Body height 161.29 cm [facility] 06-05-2024 10:14-0500 Body mass index (BMI) [Ratio] 29.3 kg/m2 [facility] 06-05-2024 10:14-0500 Body weight 76.37 kg [facility] 06-05-2024 10:14-0500 Diastolic blood pressure 66 mm[Hg] [facility] 06-05-2024 10:14-0500 Heart rate 76 /min [facility] 06-05-2024 10:14-0500 Respiratory rate 12 /min [facility] 06-05-2024 10:14-0500 Systolic blood pressure 104 mm[Hg] [facility] 03-17-2024 10:01-0400 Body height 161.29 cm [facility] 03-17-2024 10:01-0400 Body mass index (BMI) [Ratio] 29.1 kg/m2 [facility] 03-17-2024 10:01-0400 Body weight 75.74 kg [facility] 03-17-2024 10:01-0400 Diastolic blood pressure 59 mm[Hg] [facility] 03-17-2024 10:01-0400 Heart rate 86 /min [facility] 03-17-2024 10:01-0400 Respiratory rate 12 /min [facility] 03-17-2024 10:01-0400 Systolic blood pressure 100 mm[Hg] [facility] 02-15-2024 11:36-0400 Body height 161.29 cm [facility] 02-15-2024 11:36-0400 Body mass index (BMI) [Ratio] 29.6 kg/m2 [facility] 02-15-2024 11:36-0400 Body weight 77.11 kg [facility] 02-15-2024 11:36-0400 Diastolic blood pressure 71 mm[Hg] [facility] 02-15-2024 11:36-0400 Heart rate 73 /min [facility] 02-15-2024 11:36-0400 Respiratory rate 12 /min [facility] 02-15-2024 11:36-0400 Systolic blood pressure 106 mm[Hg] [facility] 11-26-2023 15:01-0400 Body height 161.29 cm [facility] 11-26-2023 15:01-0400 Body mass index (BMI) [Ratio] 29.6 kg/m2 [facility] 11-26-2023 15:01-0400 Body weight 77.16 kg [facility] 11-26-2023 15:01-0400 Diastolic blood pressure 75 mm[Hg] [facility] 11-26-2023 15:01-0400 Heart rate 77 /min [facility] 11-26-2023 15:01-0400 Respiratory rate 12 /min [facility] 11-26-2023 15:01-0400 Systolic blood pressure 108 mm[Hg] [facility] 10-18-2023 13:49-0400 Body height 161.29 cm [facility] 10-18-2023 13:49-0400 Body mass index (BMI) [Ratio] 28.2 kg/m2 [facility] 10-18-2023 13:49-0400 Body temperature 97.9 [degF] [facility] 10-18-2023 13:49-0400 Body weight 73.48 kg [facility] 10-18-2023 13:49-0400 Diastolic blood pressure 76 mm[Hg] [facility] 10-18-2023 13:49-0400 Heart rate 90 /min [facility] 10-18-2023 13:49-0400 Systolic blood pressure 126 mm[Hg] [facility] 07-06-2023 10:30-0500 Body height 161.29 cm Wagner Ball Other [facility] [employer] Other 07-06-2023 10:30-0500 Body mass index (BMI) [Ratio] 30.34 kg/m2 Wagner Ball Other [facility] [employer] Other 07-06-2023 10:30-0500 Body weight 78.93 kg Wagner Ball Other [facility] [employer] Other 07-06-2023 10:30-0500 Diastolic blood pressure 78 mm[Hg] Wagner Ball Other [facility] [employer] Other 07-06-2023 10:30-0500 Respiratory rate 12 /min Wagner Ball Other [facility] [employer] Other 07-06-2023 10:30-0500 Systolic blood pressure 121 mm[Hg] Wagner Ball Other [facility] [employer] Other 04-23-2023 16:00-0500 Body height 161.29 cm Wagner Ball Other [employer] Other 04-23-2023 16:00-0500 Body mass index (BMI) [Ratio] 29.12 kg/m2 Wagner Ball Other [employer] Other 04-23-2023 16:00-0500 Body weight 75.75 kg Wagner Ball Other [employer] Other 01-26-2023 11:00-0400 Body height 161.29 cm Wagner Ball Other [employer] Other 01-26-2023 11:00-0400 Body mass index (BMI) [Ratio] 29.22 kg/m2 Wagner Ball Other [employer] Other 01-26-2023 11:00-0400 Body weight 76.02 kg Wagner Ball Other [employer] Other 01-26-2023 11:00-0400 Diastolic blood pressure 65 mm[Hg] Wagner Ball Other [employer] Other 01-26-2023 11:00-0400 Respiratory rate 12 /min Wagner Ball Other [employer] Other 01-26-2023 11:00-0400 Systolic blood pressure 101 mm[Hg] Wagner Ball Other [employer] Other 01-19-2023 08:53-0400 Body height 160 cm Santiago Evans MD, PhD Work Phone: [facility] 01-19-2023 08:53-0400 Body weight 73.94 kg Santiago Evans MD, PhD Work Phone: [facility] 01-19-2023 08:53-0400 Diastolic blood pressure 77 mm[Hg] Santiago Evans MD, PhD Work Phone: [facility] 01-19-2023 08:53-0400 Heart rate 90 /min Santiago Evans MD, PhD Work Phone: [facility] 01-19-2023 08:53-0400 SaO2% (BldA) [Mass fraction] 100 % Santiago Evans MD, PhD Work Phone: [facility] 01-19-2023 08:53-0400 Systolic blood pressure 128 mm[Hg] Santiago Evans MD, PhD Work Phone: [facility] 12-15-2022 12:00-0400 Body height 161.29 cm Wagner Ball Other [employer] Other 12-15-2022 12:00-0400 Body mass index (BMI) [Ratio] 27.9 kg/m2 Wagner Ball Other [employer] Other 12-15-2022 12:00-0400 Body weight 72.58 kg Wagner Ball Other [employer] Other 12-15-2022 12:00-0400 Diastolic blood pressure 85 mm[Hg] Wagner Ball Other [employer] Other 12-15-2022 12:00-0400 Systolic blood pressure 115 mm[Hg] Wagner Ball Other [employer] Other 10-16-2022 16:15-0400 Body height 161.29 cm Wagner Ball Other [employer] Other 10-16-2022 16:15-0400 Body mass index (BMI) [Ratio] 29.69 kg/m2 Wagner Ball Other [employer] Other 10-16-2022 16:15-0400 Body weight 77.25 kg Wagner Ball Other [employer] Other 10-16-2022 16:15-0400 Diastolic blood pressure 82 mm[Hg] Wagner Ball Other [employer] Other 10-16-2022 16:15-0400 SaO2% (BldA) [Mass fraction] 97 % Wagner Ball Other [employer] Other 10-16-2022 16:15-0400 Systolic blood pressure 115 mm[Hg] Wagner Ball Other [employer] Other 09-10-2022 10:15-0400 Body height 161.29 cm Yara Mayaler Other [employer] Other 09-10-2022 10:15-0400 Body mass index (BMI) [Ratio] 29.12 kg/m2 Yara Mahajan Other [employer] Other 09-10-2022 10:15-0400 Body temperature 98.3 [degF] Yara Mahajan Other [employer] Other 09-10-2022 10:15-0400 Body weight 75.75 kg Yara Mahajan Other [employer] Other 09-10-2022 10:15-0400 Diastolic blood pressure 66 mm[Hg] Yara Mahajan Other [employer] Other 09-10-2022 10:15-0400 Respiratory rate 16 /min Yara Mayaler Other [employer] Other 09-10-2022 10:15-0400 SaO2% (BldA) [Mass fraction] 97 % Yara Mahajan Other [employer] Other 09-10-2022 10:15-0400 Systolic blood pressure 111 mm[Hg] Yara Mahajan Other [employer] Other 08-21-2022 14:30-0500 Body height 161.29 cm Wagner Ball Other [employer] Other 08-21-2022 14:30-0500 Body mass index (BMI) [Ratio] 29.29 kg/m2 Wagner Ball Other [employer] Other 08-21-2022 14:30-0500 Body weight 76.2 kg Wagner Ball Other [employer] Other 08-21-2022 14:30-0500 Diastolic blood pressure 76 mm[Hg] Wagner Ball Other [employer] Other 08-21-2022 14:30-0500 Respiratory rate 12 /min Wagner Ball Other [employer] Other 08-21-2022 14:30-0500 Systolic blood pressure 118 mm[Hg] Wagner Ball Other [employer] Other 06-05-2022 15:00-0500 Body height 161.29 cm Louis Palafox Other [employer] Other 06-05-2022 15:00-0500 Body mass index (BMI) [Ratio] 28.42 kg/m2 Louis Palafox Other [employer] Other 06-05-2022 15:00-0500 Body weight 73.94 kg Louis Palafox Other [employer] Other Encounters Encounter Date Encounter Type Care Provider Facility Start: 02-25-2025 End: 02-25-2025 ambulatory Wagner Jade DO Work Phone: [facility] Work Phone: Start: 02-25-2025 End: 02-25-2025 Patient encounter procedure Wagner Jade [facility] Work Phone: Start: 02-25-2025 End: 02-25-2025 Patient encounter status Wagner Jade DO [facility] Start: 10-14-2024 End: 10-14-2024 ambulatory [facility] Work Phone: Start: 10-14-2024 End: 10-14-2024 Patient encounter procedure [facility] Work Phone: Start: 08-01-2024 End: 08-01-2024 ambulatory [facility] Work Phone: Start: 08-01-2024 End: 08-01-2024 Patient encounter procedure [facility] Work Phone: Start: 07-29-2024 End: 07-29-2024 Bamboo flowsheet Carol E Rinkes DO Work Phone: [facility] Start: 07-29-2024 End: 07-29-2024 Bamboo flowsheet Carol E Rinkes DO Work Phone: [facility] Start: 07-29-2024 End: 07-29-2024 Patient encounter status Carol Donovan DO Work Phone: [facility] Start: 07-29-2024 End: 07-29-2024 Periodic preventive med est patient 40-64yrs Carol E Rinkes DO Work Phone: [facility] Comment on above: Encounter for gyneco logical examination without abnormal finding; Screening for malignant neoplasm of cervix; Encounter for screening mammogram for breast cancer Start: 07-29-2024 End: 07-29-2024 ambulatory CAROLRAMONA DONOVAN Not Available Start: 06-05-2024 End: 06-05-2024 Patient encounter procedure [facility] Work Phone: Start: 03-17-2024 End: 03-17-2024 ambulatory [facility] Work Phone: Start: 03-17-2024 End: 03-17-2024 Patient encounter procedure [facility] Work Phone: Start: 03-17-2024 End: 03-17-2024 ambulatory CAROL E RINKES Not Available Start: 02-19-2024 End: 02-19-2024 ambulatory CAROL E RINKES Not Available Start: 02-16-2024 Non-patient / Non-visit [facility] Work Phone: Start: 02-15-2024 End: 02-15-2024 ambulatory [facility] Work Phone: Start: 02-15-2024 End: 02-15-2024 Encounter for general adult medical examination without abnormal findings [facility] Start: 02-15-2024 End: 02-15-2024 Patient encounter procedure [facility] Work Phone: Start: 02-13-2024 Patient encounter status [facility] Start: 01-29-2024 Non-patient / Non-visit [facility] Work Phone: Start: 11-26-2023 End: 11-26-2023 ambulatory [facility] Work Phone: Start: 11-26-2023 End: 11-26-2023 Patient encounter procedure [facility] Work Phone: Start: 10-18-2023 End: 10-18-2023 Patient encounter procedure [facility] Work Phone: Start: 09-03-2023 Non-patient / Non-visit [facility] Work Phone: Start: 07-30-2023 End: 07-30-2023 ambulatory Wagner Jade Other [employer] Other Start: 07-30-2023 Telephone encounter Wagner Jade [facility] Start: 07-09-2023 End: 07-09-2023 ambulatory Wagner Jade Other [employer] Other Start: 07-09-2023 Telephone encounter Wagner Jade [facility] Start: 07-06-2023 End: 07-06-2023 ambulatory Wagner Jade Other [employer] Other Start: 07-06-2023 Office outpatient vi sit 15 minutes Wagner Jade [facility] Start: 07-06-2023 Telephone encounter Wagner Jade [facility] Start: 04-23-2023 End: 04-23-2023 ambulatory Wagner Jade Other [employer] Other Start: 04-23-2023 Office outpatient vi sit 15 minutes Wagner Jade [facility] Start: 04-09-2023 End: 04-09-2023 ambulatory Wagner Jade Other [employer] Other Start: 04-09-2023 Nursing evaluation o f patient and report Wagner Jade [facility] Start: 03-07-2023 End: 03-08-2023 ambulatory Jazmine Rey Facility:[facility] Start: 03-07-2023 End: 03-07-2023 Patient encounter procedure Jazmine Rey [facility] Start: 02-21-2023 End: 02-21-2023 ambulatory Wagner Jade Other [employer] Other Start: 02-21-2023 Telephone encounter Wagner WITT [facility] Start: 02-02-2023 End: 02-02-2023 ambulatory Wagner Jade Other [employer] Other Start: 02-02-2023 Telephone encounter Wagner WITT [facility] Start: 01-31-2023 End: 01-31-2023 ambulatory Wagner Jade Other [employer] Other Start: 01-31-2023 Telephone encounter Wagner WITT G [facility] Start: 01-29-2023 End: 01-29-2023 ambulatory Wagner Jade Other [employer] Other Start: 01-29-2023 Telephone encounter Wagner WITT [facility] Start: 01-26-2023 End: 01-26-2023 ambulatory Wagner Jade Other [employer] Other Start: 01-26-2023 Encounter for genera l adult medical examination without abnormal findings Wagner Jade [facility] Start: 01-26-2023 Periodic preventive med est patient 40-64yrs Wagner Jade [facility] Start: 01-19-2023 End: 01-19-2023 ambulatory SANTIAGO EVANS Facility[facility] Start: 01-19-2023 End: 01-19-2023 Patient encounter procedure Santiago Evans MD, PhD Work Phone: Neurology Comment on above: Pain in both lower e xtremities (Primary Dx); Cold hands and feet without peripheral vascular disease; Orthostatic hypotension; Small fiber neuropathy; Neuropathic pain Start: 12-18-2022 End: 12-18-2022 ambulatory Louis Palafox Other [employer] Other Start: 12-18-2022 Telephone encounter Louis WITT [facility] Start: 12-15-2022 End: 12-15-2022 ambulatory Wagner Jade Other [employer] Other Start: 12-15-2022 Office outpatient vi sit 15 minutes Wagner Jade [facility] Start: 10-16-2022 End: 10-16-2022 ambulatory Wagner Jade Other [employer] Other Start: 10-16-2022 Office outpatient vi sit 15 minutes Wagner Jade [facility] Start: 09-28-2022 End: 09-29-[address] WAGNER JADE Facility:[facility] Start: 09-26-2022 End: 09-26-2022 ambulatory Wagner Jade Other [employer] Other Start: 09-26-2022 Telephone encounter Wagner Jade [facility] Start: 09-12-2022 End: 09-12-2022 ambulatory Wagner Jade Other [employer] Other Start: 09-12-2022 Telephone encounter Wagner Jade [facility] Start: 09-11-2022 End: 09-11-2022 ambulatory Wagner Kalie Other [employer] Other Start: 09-11-2022 Office outpatient vi sit 15 minutes Wagner Jade [facility] Start: 09-10-2022 End: 09-10-2022 ambulatory Yara Mahajan Other [employer] Other Start: 09-10-2022 Office outpatient vi sit 25 minutes Yara Mahajan [facility] Start: 09-04-2022 End: 09-04-2022 ambulatory Wagner Jade Other [employer] Other Start: 09-04-2022 Telephone encounter Wagner Kalie W[facility] Start: 08-22-2022 End: 08-22-2022 ambulatory Wagner Jade Other [employer] Other Start: 08-22-2022 Telephone encounter Wagner Kalie [facility] Start: 08-21-2022 End: 08-21-2022 ambulatory Wagner Jade Other [employer] Other Start: 08-21-2022 Office outpatient vi sit 25 minutes Wagner Jade [facility] Start: 08-11-2022 End: 08-11-2022 ambulatory Wagner Jade Other [employer] Other Start: 08-11-2022 Telephone encounter [facility] Start: 07-03-2022 End: 07-03-2022 ambulatory Louis Palafox Other [employer] Other Start: 07-03-2022 Telephone encounter Louis [facility] Start: 06-05-2022 End: 06-05-2022 ambulatory Louis Palafox Facility:[facility] Start: 06-05-2022 Office outpatient ne w 30 minutes Louis Palafox [facility] Start: 06-05-2022 End: 06-05-2022 ambulatory DO Wagner Jade Work Phone: [facility] Work Phone: Start: 06-05-2022 End: 06-05-2022 Patient encounter procedure DO Wagner Jade Work Phone: [facility] Start: 04-29-2022 End: 04-30-[address] WAGNER JADE Facility:[facility] Start: 01-05-2022 End: 01-06-[address] WAGNER JADE Facility:[facility] Start: 11-22-2021 End: 11-23-[address] WAGNER JADE Facility:[facility] Start: 11-21-2021 Adult health examination Primo Jade Other [employer] Other Start: 09-03-2018 Patient encounter procedure REID FAY [facility] Procedures Date Procedure Procedure Detail [...] Treatment Date Care Activity Detail Author Start: 02-25-2025 Patient referral [facility] Work Phone: Start: 07-29-2024 End: 07-29-2024 Patient encounter procedure 07/29/2024 11:45 AM EST Office Visit [facility] [address] [place] [address] Carol Donovan DO [address] [place] [address] Encounter for gynecological examination without abnormal finding; Screening for malignant neoplasm of cervix; Encounter for screening mammogram for breast cancer [facility] Comment on above: Encounter for gyneco logical examination without abnormal finding; Screening for malignant neoplasm of cervix; Encounter for screening mammogram for breast cancer Start: 02-16-2023 Influenza vaccination INFLUENZA (#1) [facility] Start: 06-18-2022 DEPRESSION ASSESSMENT DEPRESSION ASS ESSMENT [facility] Start: 2020 SHINGRIX VACCINE (1 of 2) SHINGRIX VACCINE (1 of 2) [facility] Start: 2015 COLOGUARD (FIT-DNA) COLOGUARD (FIT-D NA) [facility] Start: 2015 Colonoscopy COLONOSCOPY [facility] Start: 2015 COLORECTAL CANCER SCREENING COLORECTAL CANCER SCREENING [facility] Start: [address] COLONOGRAPHY [facility] Start: 2015 DIABETES SCREEN DIABETES SCREEN [facility] Start: 2015 FECAL OCCULT BLOOD FECAL OCCULT BLOO D [facility] Start: 2015 LIPID SCREEN LIPID SCREEN [facility] Start: 2015 SIGMOIDOSCOPY SIGMOIDOSCOPY [facility] Start: 2010 Mammography MAMMOGRAM [facility] Start: 2000 HPV TESTING HPV TESTING [facility] Start: 1991 PAP TESTING PAP TESTING [facility] Start: 1989 Urine microalbumin profile DTAP,TDAP,TD (1 - Tdap) [facility] Start: 1988 HEPATITIS C SCREENING HEPATITIS C FREDDY BARROWNEL [facility] Start: 1988 HIV SCREENING HIV SCREENING [facility] Start: 1970 COVID-19 VACCINE (#1) COVID-19 VACCI NE (#1) [facility] Start: 1970 HEPATITIS B (1 of 3 - 3-dose series) HEPATITIS B (1 of 3 - 3-dose series) [facility] metabo lic 1999 panel - Serum or Plasma [facility] Comprehensive metabo lic 1999 panel - Serum or Plasma [facility] DBT Breast - bilater al screening Bilateral screening mammogram with tomosynthesis Imaging Routine Encounter for screening mammogram for breast cancer Ordered: 07/29/2024 [facility] Comment on above: Ordered: 07/29/2024 IGP, RFX APTIMA HPV ASCU IGP, RF X APTIMA HPV ASCU Lab Routine Screening for malignant neoplasm of cervix Ordered: 07/29/2024 [facility] Work Phone: Comment on above: Ordered: 07/29/2024 NEURO CARDIO AUTONOM IC REFLEX W/WO TILT NEURO CARDIO AUTONOMIC REFLEX W/WO TILT Procedures Routine Pain in both lower extremities Cold hands and feet without peripheral vascular disease Orthostatic hypotension Small fiber neuropathy Ordered: 01/19/2023 [facility] Work Phone: Comment on above: Ordered: 01/19/2023 NEURO QSART NEURO QSART Proc edures Routine Pain in both lower extremities Small fiber neuropathy Ordered: 01/19/2023 [facility] Work Phone: Comment on above: Ordered: 01/19/2023 Patient referral [facility] Work Phone: XR Mandible LE 3 Views [facility] Payers Date Payer Category Payer Private Health Insurance [employer] [id number] 2022 Unknown [id number] 2022 Self-pay [id number] 1970 Unknown [id number] 1970 Unknown [id number] 1970 Unknown [id number] 1970 Unknown [id number] 1970 Unknown [id number] 1970 Unknown [id number] 1259 1970 Unknown [id number] 1259 1970 Unknown [id number] 1259 1959 Unknown [id number] 1959 Unknown [id number] Unknown [id number] Social History Date Type Detail Facility Tobacco smoking stat us NHIS Unknown if ever smoked [facility] Work Phone: Start: 1970 Sex Assigned At Female [facility] Start: 01-19-2023 End: 08-21-2023 Sex Assigned At [facility] Start: 01-19-2023 End: 07-06-2023 Tobacco smoking status NHIS Never smoked tobacco [facility] Start: 01-19-2023 Tobacco use and exposure Smokeless tobacco non-user [facility] Start: 01-19-2023 Alcohol intake Ex-drinker (finding) [facility] Start: 01-19-2023 End: 08-21-2023 History of Social function [facility] Start: 11-08-2022 Gender identity Identifies as female gender (finding) [facility] Start: 01-18-2023 Sexual orientation Heterosexual (finding) [facility] Tobacco smoking status Never [facility] Start: 07-25-2024 End: 07-29-2024 Alcoholic beverage intake Current drinker of alcohol (finding) [facility] How often to you hav e a drink containing alcohol? Monthly or less [facility] How many standard drinks containing alcohol do you have on a typical day? 1 or 2 [facility] How often do you hav e 6 or more drinks on 1 occasion? Never [facility] Start: 08-21-2023 Alcohol Comment Caffeine intake: 2-3 cups per day [facility] Start: 08-01-2024 End: 10-14-2024 Sex Female (finding) [facility] Clinical Notes 01-23-2022 to 08-01-2024 Note Date & Type Note Facility 08-01-2024 Evaluation note Diagnosis Onset Date Resolution Parotitis, acute noneactive August 01, 2024 2:05pm Jaw pain, non-TMJ noneactive Februar 2024 2:05pm [facility] Work Phone: [phone] 775-231702-11-2025 History of Present illness Narrative* Carol Donovan DO - 07/29/2024 11:45 AM EST Images from the original note were not included. Carol Donovan D.O. Obstetrics and Gynecology Patient: Claire Rocha : 1970 (54 y.o.) Yearly Wellness Exam Date: 07/29/2024 Reason for Visit - Chief Complaint Patient presents with Gynecologic Exam Denies concerns. Denies bowel/bladder/breast concerns. Denies vaginal bleeding/spotting. Visit Vitals BP 110/72 Wt 166 lb BMI 30.36 kg/m OB Status Postmenopausal Smoking Status Never BSA 1.82 m No Known Allergies History of Present Illness, Associated Treatments and Results - OB History Para Term AB Living 3 2 2 0 0 4 SAB IAB Ectopic Multiple Live Births 0 0 0 0 0 # Outcome Date GA Lbr Ayden/2nd Weight Sex Type Anes PTL Lv 3 2 Term 1 Term CS-Unspec Complications: Twin Obstetric Comments Pap smear 01/10/22 wnl Mammogram 02/19/24 wnl @ [facility] Review of Systems - General: Chills denies. Allergy/Immunology: Rash Denies. ENT: Denies Difficulty swallowing. Endocrine: Denies Cold intolerance denies. Heat intolerance denied. Respiratory: Denies Chest pain denies. Shortness of breath denies. Breast: Denies Bloody nipple discharge denies. Breast lump denies. Cardiovascular: Denies Chest pain. Gastrointestinal: Abdominal pain denies. Blood in stool denies. Hematology: Easy bruising denies. Prolonged bleeding denies. Women Only: Breast lump denies. Vaginal bleeding between periods is denied. Vaginal discharge/itching denied. Genitourinary: Blood in urine denies. Painful urination denies. Incontinence denies. Skin: Hair changes. Neurologic: Seizures denied. Stroke denies. Psychiatric: Anxiety denies. Depressed mood denies. Medication Documentation Review Audit Reviewed by Gladis Brower MA ([employer]) on 07/29/24 at 1209 Medication Order Taking? Sig Documenting Provider Last Dose Status levothyroxine (Synthroid, Levoxyl) 100 MCG tablet [id number] TAKE 1 TABLET BY MOUTH EVERY MORNING ON AN EMPTY STOMACH for 90 Carol Donovan, Active Past Medical History: Diagnosis Date Endometriosis Mena's disease (CMS/HCC) Hypothyroid (CMS/HCC) Osteopenia Past Surgical History: Procedure Laterality Date SECTION, LOW TRANSVERSE 1989 COLONOSCOPY 2020 HAND SURGERY OTHER SURGICAL HISTORY 03/02/2015 r/o nasal lesion Family History Problem Relation Name Age of Onset Kidney disease Father Heart disease Paternal Grandmother Heart disease Paternal Grandfather Breast cancer Other aunt Stroke Sibling Physical Exam - General appearance, mentation, extraocular movements, facial strength and movement, hearing, upper and lower extremity strength and tone, sensation to gross testing, coordination, and gait are normalor at baseline unless noted below. General Examination: GENERAL APPEARANCE: alert oriented well developed, well nourished. HEAD: normocephalic atraumatic. EYES: sclera anicteric. EARS: no obvious hearing deficit. SKIN: warm and dry. HEART: regular rate and rhythm. LUNGS: clear to auscultation bilaterally. CHEST: axillary nodes grossly normal. BREASTS: no masses palpable bilaterally, normal nipples bilaterally. ABDOMEN: soft, nontender, nondistended, no masses palpable. BACK: no costovertebral angle tenderness, no obvious scoliosis/kyphosis. FEMALE GENITOURINARY: atrophic vaginal mucosa, cervix absent of lesions, nontender, uterus AV, mobile, ovaries nonpalpable and nontender. EXTREMITIES: no edema. NEUROLOGIC: alert and oriented. PSYCH: cooperative with exam. Diagnoses and all orders for this visit: Encounter for gynecological examination without abnormal finding Screening for malignant neoplasm of cervix - IGP, RFX APTIMA HPV ASCU Encounter for screening mammogram for breast cancer - Bilateral screening mammogram with tomosynthesis Pap, pelvic and breast exam completed. Findings of today's exam discussed with the patient. Continue MSBE. Ca/Vit D recommendations reviewed with the patient. The patient is to contact the office with any changes to her gynecological condition. The patient is to return in 1 year or as needed ICD-10-CM 1. Encounter for gynecological examination without abnormal finding Z01.419 2. Screening for malignant neoplasm of cervix Z12.4 IGP, RFX APTIMA HPV ASCU 3. Encounter for screening mammogram for breast cancer Z12.31 Bilateral screening mammogram with tomosynthesis [id number] Evaluation note* Diagnosis Onset Date Resolution Status Admit Date DELFIN (generalized anxiety disorder) acute June 05, 024 10:11am Hypothyroid acute May 10:11am Migraine headache acute Decembe r 2023 10:11am Osteopenia acute June 05, 2024 10:11am Overweight acute June 05, 2024 10:11am Pernicious anemia acute Decee r 2023 10:11am [facility] Work Phone: [phone] 629-139801-19-2024 Evaluation note* Encounter Date Diagnosis Assessment Notes Treatment Notes Treatment Clinical Notes Jun, Migraine with aura and without [...] to reduce portions Jun, Body mass index [BMI ] 30.0-30.9, adult (ICD-10 - Z68.30) [facility] Other 01-19-2024 Evaluation note* Encounter Date Diagnosis Assessment Notes Treatment Notes Treatment Clinical Notes Jun, Autoimmune thyroiditis (ICD-10 - E06.3) Jun, Other obesity due to excess calories (ICD-10 - E66.09) Jun, Body mass index [BMI] 30.0-30.9, adult (ICD-10 - Z68.30) [facility] Other 11-06-2023 Evaluation note* Encounter Date Diagnosis [...] weekly. Increases risk for of COVID complications. [facility] Other 10-23-2023 Evaluation note* Encounter Date Diagnosis Assessment Notes Treatment Notes Treatment Clinical Notes Mar, Vitamin B12 deficiency anemia due to intrinsic factor deficiency (ICD-10 - D51.0) [facility] Other 09-20-2023 Evaluation + Plan note Diagnostic Tests Pending * Rheumatoid Factor Quantitative 03/07/23 * MICHAEL w/Reflex if POS 03/07/23 [facility]09-06-2023 Evaluation note* Encounter Date Diagnosis Assessment Notes Treatment Notes Treatment Clinical Notes Feb, Herpesviral vesicular dermatitis (ICD-10 - B00.1) [facility] Other 08-16-2023 Evaluation note* Encounter Date Diagnosis Assessment Notes Treatment Notes Treatment Clinical Notes Jan, Autoimmune thyroiditis (ICD-10 - E06.3) [facility] Other 08-11-2023 Evaluation note* Encounter Date Diagnosis [...] diet, proper sleep routine. Referral to Neurology [facility] Other 08-04-2023 History and physical note* Santiago Evans MD, PhD - 01/19/2023 10:28 PM EDT [facility] [place] January 19, 2023 Claire Rocha Requesting Physician: [...] to finalize current assessment) [facility]* Encounter Date Diagnosis Assessment Notes Treatment Notes Treatment Clinical Notes Nov, Overweight (ICD-10 - E66.3) This patient has been instructed on a low-fat, high-fiber diet. They are instructed to reduce calories, portion sizes and snacks. It is recommended that they exercise for 30 minutes, 3-5 times weekly. 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 I do [...] move forward with treatment at this time. [facility] Other 05-01-2023 Evaluation note* Encounter Date Diagnosis [...] Euthyroid on recent testing Continue present treatment [facility] Other 04-11-2023 Evaluation note* Encounter Date Diagnosis Assessment Notes Treatment Notes Treatment Clinical Notes Sep, Autoimmune thyroiditis (ICD-10 - E06.3) [facility] Other 03-28-2023 Evaluation note* Encounter Date Diagnosis Assessment Notes Treatment Notes Treatment Clinical Notes Aug, Acute cough (ICD-10 - R05.1) [facility] Other 03-27-2023 Evaluation note* Encounter Date Diagnosis [...] for congestion, Tylenol for pain and fever. [facility] Other 03-26-2023 Evaluation note* Encounter Date Diagnosis [...] treatment plan. Patient left in stable condition [facility] Other 03-20-2023 Evaluation note* Encounter Date Diagnosis Assessment Notes Treatment Notes Treatment Clinical Notes Aug, Overweight (BMI 25.0-29.9) (ICD-10 - E66.3) [facility] Other 03-07-2023 Evaluation note* Encounter Date Diagnosis Assessment Notes Treatment Notes Treatment Clinical Notes Aug, Overweight (BMI 25.0-29.9) (ICD-10 - E66.3) [facility] Other 03-06-2023 Evaluation note* Encounter Date Diagnosis [...] and structure, left thigh (ICD-10 - M85.852) [facility] Other 02-24-2023 Evaluation note* Encounter Date Diagnosis Assessment Notes Treatment Notes Treatment Clinical Notes Jul, 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 [facility] Other 08-08-2022 NoteHISTORY: Bone density screening. COMPARISON: [...] signed by Flakita Gan on 01/23/2022 0921[facility] [place] [facility]istEvaluation noteNo assessment information [facility] Work Phone: Evaluation noteNo InformationNort [facility] Other Evaluation note* Diagnosis Pain in both lower extremities- Primary Cold hands and feet without peripheral vascular disease Other symptoms involving skin and integumentary tissues Orthostatic hypotension Small fiber neuropathy Unspecified hereditary and idiopathic peripheral neuropathy Neuropathic pain Neuralgia, neuritis, and radiculitis, unspecified [facility] Diagnosis Onset Date Resolution Status DELFIN (generalized anxiety disorder) acute Hypothyroid acute Migraine headache acute Overweight acute [facility] Work Phone: Evaluation note* Diagnosis Onset Date Resolution Status DELFIN (generalized anxiety disorder) acute Migraine headache acute Overweight acute DELFIN (generalized anxiety disorder) acute Hypothyroid acute Osteopenia acute Overweight acute Screening mammogram for breast cancer acute Wellness examination acute [facility] Work Phone: Evaluation note* Diagnosis Onset Date Resolution Status DELFIN (generalized anxiety disorder) acute Hypothyroid acute Osteopenia acute Overweight acute Screening mammogram for breast cancer acute Wellness examination acute DELFIN (generalized anxiety disorder) acute Hypothyroid acute Osteopenia acute Overweight acute [facility] Work Phone: Evaluation note* Diagnosis Encounter for gynecological examination without abnormal finding Screening for malignant neoplasm of cervix Screening for malignant neoplasm of the cervix Encounter for screening mammogram for breast cancer [facility] Diagnosis Onset Date Resolution Status Admit Date Family history of coronary artery disease acute February 25, 2025 2:11pm DELFIN (generalized anxiety disorder) acute February 25, 2025 2:11pm Hypothyroid acute February 2:11pm Migraine headache acute Septemb er 2024 2:11pm Osteopenia acute February 2:11pm Overweight acute February 2:11pm Pernicious anemia acute Septemb er 2024 2:11pm Screening mammogram for breast cancer acute February 25, 2025 2:11pm Varicose veins of bilateral lower extremities with pain acute Feb emb2024 2:11pm Wellness examination acute Feb 2:11pm [facility] Work Phone: History general Narrative - Reported* Type Description Date Medical History HYPOTHYROIDISM Medical History HASIMOTOS Medical History OSTEOPENIA Medical History MENOPAUSE Surgical History Surgical History SCOPING ENDREMETRIOSIS Surgical History SURGERY ON LEFT HAND Hospitalization History CHILD [facility] [employer] Other Hospital course Narrative No data available for this section [facility] No data available for this section [facility] Orders* Referral to Vascular Surgery Location: None Selected [facility] Work Phone: Progress note No data available for this section [facility] Reason Referral for dysesth esias of the lower extremities and chronic headache Diagnosis 1 Chronic daily headac he (R51.9) Diagnosis 2 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 Orthopedics has excluded spine and hip disorders as an etiology. [facility]oped[facility] but she does not wish to return. I an referring her for lower extremity dysesthesias and chronic tension headaches. Clinical Notes Include labs from [facility] [employer] Other Summary Purpose Family History Relationship Condition [...] Leg weakness, bilate ral (R29.898) Referral Organization [facility] Referring Provider First Name Louis Referring Provider Last Name Vivienne Referring Provider Specialty Orthopedic Surgery Referred Organization [facility] Referred Address [address] [place], [place],[id number] Referred Provider Specialty Neurology Referral Priority Routine [...] Screening mammogram for breast cancer Wellness examination Chief Complaint wellness 1 month f/u Reason for Visit DELFIN (generalized anx iety disorder) Hypothyroid Osteopenia Overweight Screening mammogram for breast cancer Wellness examination DELFIN (generalized anxiety disorder) Hypothyroid Osteopenia Overweight Chief Complaint Admit Date 3 month f/u June 05, 2024 10:11am Ear Infection August 01, 2024 2:05pm Reason for Visit Admit Date DELFIN (generalized anxiety disorder) Decem 2023 10:11am Hypothyroid June 05, 2024 10:11am Migraine headache June 05, 2024 10:11am Osteopenia June 05, 2024 10:11am Overweight June 05, 2024 10:11am Pernicious anemia June 05, 2024 10:11am Chief Complaint Admit Date Ear Infection August 01, 2024 2:05pm Achilles Tendon Concerns October 14 1:58pm Reason for Visit Admit Date Parotitis, acute August 01, 2024 2:05pm Jaw pain, non-TMJ August 01, 2024 2:05pm Chief Complaint Admit Date Wellness February 25, 2025 2:11pm Reason for Visit Admit Date Family history of coronary artery diseas e February 25, 2025 2:11pm DELFIN (generalized anxiety disorder) Alfie bowserer 2024 2:11pm Hypothyroid February 25, 2025 2:11pm Migraine headache February 25, 2025 2:11pm Osteopenia February 25, 2025 2:11pm Overweight February 25, 2025 2:11pm Pernicious anemia February 25, 2025 2:11pm Screening mammogram for breast cancer Se pt2024 2:11pm Varicose veins of bilateral lower extrem ities with pain February 25, 2025 2:11pm Wellness examination February 25 2:11pm Additional Source Comments INFORMATION SOURCE (unrecogn ized section and content) DATE CREATED AUTHOR 09/04/2018 [facility] DATE CREATED AUTHOR AUTHOR'S ORGANIZ ATION 01/23/2022 [facility] DATE CREATED AUTHOR AUTHOR'S ORGANIZ ATION 06/09/2022 [facility] DATE CREATED AUTHOR AUTHOR'S ORGANIZ ATION 10/05/2022 [facility] DATE CREATED AUTHOR AUTHOR'S ORGANIZ ATION 02/13/2023 [facility] DATE CREATED AUTHOR AUTHOR'S ORGANIZ ATION 03/11/[address] [facility] DATE CREATED AUTHOR AUTHOR'S ORGANIZ ATION 07/31/2024 [facility] dical Specialists [employer]IC Care Teams (unrecognized sec tion and content) Team Status: Active Member Role Status Dates Wagner Jade DO Primary Care Provider Active Team Status: Inactive Member Role Status Dates Wagner Jade DO Primary Care Provide r, Attending Provider Active Start: June 05, 2024 End: June 05, 2024 Team Status: Inactive Member Role Status Dates Wagner Jade DO Primary Care Provide r, Attending Provider Active Start: August 01, 2024 End: August 01, 2024 Team Status: Active Member Role Status Joann Jade DO Primary Care Provide r, Attending Provider Active Start: January 29, 2024 Team Status: Inactive Member Role Status Joann Jade DO Primary Care Provide r, Attending Provider Active Start: February 15, 2024 End: February 15, 2024 Team Status: Active Member Role Status Joann Jade DO Primary Care Provide r, Attending Provider Active Start: February 16, 2024 Team Status: Inactive Member Role Status Dates Wagner Jade DO Primary Care Provide r, Attending Provider Active Start: March 17, 2024 End: March 17, 2024 Team Status: Inactive Member Role Status Joann Jade DO Primary Care Provide r, Attending [...] End: October 18, 2023 Eleni Almeida APRN [employer]C Attending Provider Act yamel Start: October 18, 2023 End: October 18, 2023 Team Status: Inactive Member Role Status Dates Wagner Jade DO Primary Care Provider Active Louis Palafox DO Attending Provider Active Neck Pinner Relationship Specialty Start Date End Date Louis Palafox DO [address] [place] [address] Referring Orthopedics 12/28/22 Neck Pinner Relationship Specialty Start Date End Date Eleni Caballero DO PCP - General Family Medicine 10/24/22 Neck Pinner Relationship Specialty Start Date End Date Eleni Caballero DO PCP - General Family Medicine 10/24/22 Team Status: Inactive Member Role Status Dates Wagner Jade DO Primary Care Provide r, Attending Provider Active Start: October 14, 2024 End: October 14, 2024 Team Status: Inactive Member Role Status Dates Wagner Jaed DO Primary Care Provider Active Start: February 25, 2025 End: February 25, 2025 Wagner Jade DO Attending Provider Active Sta rt: February 25, 2025 End: February 25, 2025 Goals (unrecognized section and content) Goals may be documented in a n alternate sectionNo InformationNo InformationNo InformationNo InformationNo InformationNo InformationNo InformationNo InformationNo InformationNo InformationNo InformationNo InformationNo InformationNo InformationNo InformationNo InformationNo InformationNo InformationNo InformationNo Information No data available for this sectionNo InformationNo InformationNo InformationNo InformationNo InformationNo InformationNo InformationGoals may be documented in an alternate sectionGoals may be documented in an alternate sectionGoals may be documented in an alternate sectionGoals may be documented in an alternate sectionGoals may be documented in an alternate sectionGoals may be documented in an alternate section REASON FOR VISIT (unrecogniz ed section and content) Reason Comments New Patient Consult Reason Comments Gynecologic Exam Denies concerns. Den ies bowel/bladder/breast concerns. Denies vaginal bleeding/spotting. Source Comments (unrecognize d section and content) In the event this informatio n is protected by the [facility] Confidentiality of Alcohol and Drug Abuse Patient Records regulations: The Federal rules restrict any use of the information to criminally investigate or prosecute any alcohol or drug abuse patient.[facility] FOR RECORDS PERTAINING TO PATIENTS WHO [...] BE BASED ON THE PRIMARY CLINICAL RECORDS. [facility]. provides no warranty or guarantee of the accuracy or completeness of information in this document.
[2025-02-27 07:50] LABS: Hematocrit 34.7 % (36.0-48.0); Hemoglobin 11.1 g/dL (12.0-16.0); Immature Granulocytes Abs Auto 0.01 10^3/uL (0.00-0.03); Immature Granulocytes Pct Auto 0.2 % (0.0-0.5); Lymphocytes Absolute Auto 2.1 10^3/uL (1.2-3.8); Mean Corpuscular HGB Conc 32.0 g/dL (29.9-35.2); Mean Corpuscular Hemoglobin 27.1 pg (26.7-34.0); Mean Corpuscular Volume 84.6 fL (81.0-99.0); Platelet Count 359 10^3/uL (150-450); Red Blood Count 4.10 10^6/uL (4.20-5.40); White Blood Count 5.3 10^3/uL (4.0-11.0)
[2025-02-27 08:21] LABS: Alanine Aminotransferase 21 U/L (14-59); Albumin Globulin Ratio 1.2; Albumin Level 3.7 g/dL (3.4-5.0); Alkaline Phosphatase 55 U/L (46-116); Anion Gap 11.7; Aspartate Amino Transferase 17 U/L (15-37); Blood Urea Nitrogen 19.0 mg/dL (7.0-18.0); Calcium 9.0 mg/dL (8.5-10.1); Carbon Dioxide 27.9 mmol/L (21.0-32.0); Chloride 107 mmol/L (98-107); Cholesterol 211 mg/dL (<=200); Estimated GFR (African America >60 (>=60 mL/min/1.73m^2); Estimated GFR (Non-African Ame >60 (>=60 mL/min/1.73m^2); Globulin 3.2 g/dL; Glucose 98 mg/dL (74-106); HDL Cholesterol 67 mg/dL (40-60); Potassium 4.6 mmol/L (3.5-5.1); Sodium 142 mmol/L (136-145); Thyroid Stimulating Hormone 3.565 uIU/mL (0.358-3.740); Total Protein 6.9 g/dL (6.4-8.2); Triglycerides 50 mg/dL (<=150); VLDL CHOLESTEROL 10.0 mg/dL
== END 2025-02-27 06:48 | disposition home or self-care (01) ==
LOC: LAB 06:49
PROVIDERS: PCP Internal Medicine; Visit Provider Internal Medicine
DX: Z00.00 Encounter for general adult medical examination without abnormal findings (principal)
CPT/HCPCS: 36415; 80053; 80061; 84443; 85025